=== PATIENT | male | born 1955 | race Caucasian/White ===

== ENCOUNTER 2023-05-04 22:05 | Inpatient (IN) | payer MEDICARE, SELFPAY ==
--- NOTE | ~2023-05-04 | CT_ITS ---
EXAMINATION: CT ABDOMEN AND PELVIS WITH CONTRAST GI BLEED CLINICAL INFORMATION: Rectal bleeding COMPARISON: None TECHNIQUE: Initial noncontrast imaging of the abdomen/pelvis. Multidetector volumetric images were obtained from the superior aspect of the liver through the pubic symphysis following administration 85 mL of Omnipaque 350 intravenous contrast in arterial and delayed phases. Sagittal and coronal reformatted images were obtained on the technologist's workstation. This CT examination was performed using dose optimization techniques as appropriate, variously including the following: *Automated exposure control *Adjustment of mA and/or kV according to patient size (this includes techniques or standardized protocols for targeted exams where dose is matched to indication/reason for exam; i.e. extremities or head) *Use of iterative reconstruction technique DLP: 1274 mGy-cm FINDINGS: LUNG BASES: Mild bibasilar atelectasis. LIVER, GALLBLADDER, AND BILIARY TREE: The liver is normal in size, shape, and attenuation. Small hypodensity in the left hepatic lobe is suggestive of a cyst. No biliary ductal dilatation is present. The gallbladder is unremarkable with no evidence of radiopaque gallstones, gallbladder wall thickening, or obvious pericholecystic inflammatory changes. PANCREAS: Unremarkable. SPLEEN: Unremarkable. ADRENAL GLANDS: Unremarkable. KIDNEYS AND URETERS: No hydronephrosis or obstructing calculus bilaterally. Postcontrast nephrograms are symmetric. BLADDER: Collapsed with Kumari catheter in place. GASTROINTESTINAL TRACT: On arterial phase imaging there is subtle focal hyperattenuation along the posterior aspect of the collapsed rectum, such as on series 9 image 214/250, suggesting a small amount of active hemorrhage. No significant bowel wall thickening is seen, though evaluation some regions is limited due to luminal collapse. Colonic diverticulosis is noted without definite diverticulitis. No evidence of bowel obstruction. The appendix is unremarkable. No free fluid or free air is seen. ABDOMINAL WALL: Fat-containing right inguinal hernia. LYMPH NODES: Normal. VASCULAR: Mild scattered atherosclerotic calcifications. PELVIC VISCERA: The prostate gland is enlarged, measuring approximately 6 cm in transverse dimension. OSSEOUS STRUCTURES: Scattered mild degenerative changes in the spine. CT/CT gi bleed abd pel wo/w IVcon IMPRESSION: 1. Subtle focal hyperdensity along the posterior aspect of the collapsed rectum, suggesting a small amount of active hemorrhage. If not recently performed, correlation with follow-up colonoscopy is recommended as underlying mass cannot be excluded. 2. Colonic diverticulosis without definite diverticulitis. 3. Enlarged prostate gland. This critical result was discussed with Dr. Conroy on 05/05/2023 2:29 AM, and it was ascertained that the content and urgency of the report was understood at the time of direct communication.
[2023-05-04 22:16] VITALS: BP 184/106; BP 198/114; PULSE 103; PULSE 108; RESP 19; TEMP 36.7; O2SAT 95; O2SAT 96; BMI 25.7
[2023-05-04 22:58] LABS: Basophils Absolute Auto 0.1 X10*3/uL (0.0-0.2); Basophils Percent Auto 0.7 % (0-2); Eosinophils Absolute Auto 0.3 X10*3/uL (0.0-0.4); Eosinophils Percent Auto 2.4 % (0-4); Hematocrit 46.6 % (42.0-52.0); Hemoglobin 15.8 g/dl (14.0-18.0); Imm Gran Abs Auto 0.05 X10*3/uL (0.00-0.03); Imm Gran Pct Auto 0.4 % (0.0-0.4); Lymphocytes Absolute Auto 1.8 X10*3/uL (1.2-4.9); Lymphocytes Percent Auto 13.1 % (20-40); MANUAL DIFF FLAG NO; Mean Corpuscular HGB Conc 33.9 g/dl (31.0-36.0); Mean Corpuscular Hemoglobin 28.6 pg (27.0-33.0); Mean Corpuscular Volume 84.3 fL (80.0-98.0); Mean Platelet Volume 9.3 fL (9.4-12.4); Monocytes Absolute Auto 0.8 X10*3/uL (0.1-1.2); Monocytes Percent Auto 5.5 % (2-11); Neutrophils Absolute Auto 10.8 x10*3/uL (2.0-8.3); Neutrophils Percent Auto 77.9 % (45-73); Platelet Count 261 X10*3/uL (160-400); Red Blood Count 5.53 X10*6/uL (4.60-5.80); Red Cell Distribution Width 13.3 % (11.0-16.0); White Blood Count 13.8 X10*3/uL (4.8-10.8)
[2023-05-04 23:08] LABS: Appearance Urine Clear; Color Urine Yellow; Glucose Urine UA 100 mg/dL (Negative); Leukocyte Esterase Urine Negative (Negative); Nitrite Urine Negative (Negative); PH 5.5 (5.0-9.0); UMIC TRIGGER UACC YES; Urine Blood Trace (Negative); Urine Ketones Negative (Negative); Urine Protein Negative (Neg-Trace)
[2023-05-04 23:12] LABS: Alanine Aminotransferase 31 U/L (0-40); Albumin Level 4.6 g/dL (3.5-5.0); Alkaline Phosphatase 56 U/L (39-117); Anion Gap 16 (12-20); Aspartate Amino Transferase 20 U/L (5-37); Bilirubin Total 0.4 mg/dL (0.0-1.0); Blood Urea Nitrogen 12 mg/dL (9-16); Calcium 9.9 mg/dL (8.4-10.2); Carbon Dioxide 26 mmol/L (22-29); Chloride 105 mmol/L (96-108); Creatinine Clr Calc Pharmacy 53.1; Estimated Glomerular Filt Rate 56; Glucose Random 164 mg/dL (60-115); Potassium 4.6 mmol/L (3.3-5.1); Sodium 142 mmol/L (135-145); Total Protein 8.1 g/dL (6.5-8.0)
[2023-05-04 23:17] LABS: Bacteria Urine None Seen (None Seen); Hyaline Casts Urine 0-2 /LPF (0-2); Squamous Epithelial Cell Urine 0-2 /HPF (0-2); WBC Urine 0-5 /HPF (0-5)
--- NOTE | 2023-05-04 23:26 | ED.GENADULT ---
HPI - General Adult General Chief complaint: General Medical Stated complaint: BLOOD IN STOOL, DIFF URINATING,BURNING SENSATION Time Seen by Provider: 05/04/23 22:37 Source: patient Mode of arrival: EMS History of Present Illness HPI narrative: 68M arrives via EMS with inability to urinate since this afternoon and also reporting painless bleeding on defecation that soiled his underwear/toilet bowl and toilet paper. Patient denies the use of chronic anticoagulation or experiencing any abdominal pain with his symptoms. Related Data Allergies Allergy/AdvReac Type Severity Reaction Status Date / Time Sulfa (Sulfonamide Allergy Intermediate HIVES Unverified 11/21/19 16:17 Antibiotics) [SULFA (SULFONAMIDE ANTIBIOTICS)] lisinopril [LISINOPRIL] AdvReac Unknown COUGH Unverified 11/21/19 16:17 ENVIROMENTAL Allergy Unknown UNKNOWN Uncoded 11/21/19 16:17 Review of Systems Review of Systems: Pertinent positives and negatives as stated in HPI [facility] Past Medical History Source: nursing notes reviewed Medical History Gastroesophageal reflux disease Essential hypertension Non-insulin dependent type 2 diabetes mellitus Mixed hyperlipidemia Peripheral neuropathy Social History Social History Alcohol intake: current Alcohol intake frequency: holidays/special occasions only Smoked in Last 30 Days: No Use of substances other than those prescribed or required for medical reasons: No Advance Directives: No Advance Directives Information Provided: No Physical Exam ED Vital Signs: Vital Signs - 24 hr 05/04/23 22:16 05/04/23 23:32 Temperature 98.0 F Pulse Rate 103 H 100 Respiratory Rate 19 16 Blood Pressure 184/106 H 118/76 Pulse Oximetry 95 98 Oxygen Delivery Method Room Air Room Air BMI result Body Mass Index 25.7 VITAL SIGNS: Reviewed. GENERAL: Well developed, well nourished, in no acute distress. HEAD: Normocephalic/atraumatic EYES: PERRLA, EOMI EARS: Ext canals without abnormality NOSE: Nares patent bilateral OROPHARYNX: no oral lesions noted, posterior pharynx clear NECK: Supple, no adenopathy LUNGS: Normal breath sounds. No adventitious sounds or accessory muscle use. SpO2<98> CARDIOVASCULAR: Regular rate and rhythm without noted murmurs ABDOMEN: Soft, non-tender, non-distended with bowel sounds. LELE: There are inflamed external hemorrhoids noted at the 3 o'clock position, there is no noted friability or active bleeding noted, good rectal tone, mucous stool noted within the rectal vault that appears to be mixed with pink tinged stool MUSCULOSKELETAL: No tenderness, deformities, or effusions noted on gross inspection. EXTREMITIES: No cyanosis, clubbing or edema. SKIN: Inspection of the skin reveals no rashes NEUROLOGIC: Alert and oriented x 4. Strength and sensation to light touch were grossly intact x 4. Medications Administered Discontinued Medications Generic Name Dose Route Start Last Admin Trade Name Freq PRN Reason Stop Dose Admin Iohexol 100 ml 05/05/23 00:51 05/05/23 00:51 Iohexol 350 Mg/Ml 100 Ml Infus..Btl IV 05/05/23 00:52 85 ml ONCE ONE Administration Medical Decision Making Medical Decision Making [facility] Narrative: 68-year-old male with history and clinical presentation, DDX: Urinary retention secondary to either BPH or possible constipation and Kumari catheter was placed for bladder scan demonstrating more than 700 cc retained, possibility of a UTI, patient clearly has external inflamed hemorrhoids, stool guaiac is positive and there is the possibility internal hemorrhoid contribution likely secondary to constipation. Reviewed all investigations and hematologic indices demonstrates a noninfectious leukocytosis that appears to be reactive in nature and no anemia or thrombocytopenia. Chemistry indices do not demonstrate BONILLA/electrolyte or liver enzyme derangements. Urinalysis is not significant for urinary tract infection. As mentioned above patient is noted to be stool guaiac positive, and just received a call at : for CT scan for GI bleed that shows a bright focus at the right rectum, patient is not had any further BRBPR but will be typed and screened, I will discuss the case with Gastroenterology and I have contacted the inpatient hospitalist for admission. 0232: I discussed case with inpatient hospitalist who accepts admission. Differential Diagnosis Differential Diagnoses: The differential diagnosis associated with the presentation includes Please see the discussion above Admission/Observation Consideration of admission/observation: Escalation of care including admission/observation considered Please see the discussion above Consult Healthcare Provider Management of the patient was discussed with: Hospitalist and Production Clerk Please see the discussion above Lab Data [facility] Lab Attestation statement: I reviewed the patient's lab results. Please see the discussion above 05/04/23 22:47 05/04/23 22:47 Labs: Lab Results 05/04/23 05/04/23 05/04/23 Range/Units 22:47 23:00 23:21 WBC 13.8 H (4.8-10.8) X10*3/uL RBC 5.53 (4.60-5.80) X10*6/uL Hgb 15.8 (14.0-18.0) g/dl Hct 46.6 (42.0-52.0) % MCV 84.3 (80.0-98.0) fL MCH 28.6 (27.0-33.0) pg MCHC 33.9 (31.0-36.0) g/dl RDW 13.3 (11.0-16.0) % Plt Count 261 (160-400) X10*3/uL MPV 9.3 L (9.4-12.4) fL Immature Gran % (Auto) 0.4 (0.0-0.4) % Neut % (Auto) 77.9 H (45-73) % Lymph % (Auto) 13.1 L (20-40) % [place] % (Auto) 5.5 (2-11) % Eos % (Auto) 2.4 (0-4) % Baso % (Auto) 0.7 (0-2) % Lymph # (Auto) 1.8 (1.2-4.9) X10*3/uL [place] # (Auto) 0.8 (0.1-1.2) X10*3/uL Eos # (Auto) 0.3 (0.0-0.4) X10*3/uL Baso # (Auto) 0.1 (0.0-0.2) X10*3/uL Abs Immat Gran (auto) 0.05 H (0.00-0.03) X10*3/uL Absolute Neuts (auto) 10.8 H (2.0-8.3) x10*3/uL Absolute Nucleated RBC 0.000 (0.0-0.012) X10*3/uL Nucleated RBC % (auto) 0.0 (0.0-0.2) /100WBC Sodium 142 (135-145) mmol/L Potassium 4.6 (3.3-5.1) mmol/L Chloride 105 (96-108) mmol/L Carbon Dioxide 26 (22-29) mmol/L Anion Gap 16 (12-20) BUN 12 (9-16) mg/dL Creatinine 1.27 (0.5-1.4) mg/dL Estim Creat Clear Calc 53.1 Estimated GFR 56 Random Glucose 164 H (60-115) mg/dL Calcium 9.9 (8.4-10.2) mg/dL Total Bilirubin 0.4 (0.0-1.0) mg/dL AST 20 (5-37) U/L ALT 31 (0-40) U/L Alkaline Phosphatase 56 (39-117) U/L Total Protein 8.1 H (6.5-8.0) g/dL Albumin 4.6 (3.5-5.0) g/dL Urine Color Yellow Urine Appearance Clear Urine pH 5.5 (5.0-9.0) Ur Specific [place] 1.010 (1.005-1.025) Urine Protein Negative (Neg-Trace) mg/dL Urine Glucose (UA) 100 H (Negative) mg/dL Urine Ketones Negative (Negative) mg/dL Urine Blood Trace H (Negative) Urine Nitrite Negative (Negative) Ur Leukocyte Esterase Negative (Negative) Urine RBC 6-10 H (0-2) /HPF Urine WBC 0-5 (0-5) /HPF Ur Squamous Epith Cells 0-2 (0-2) /HPF Urine Bacteria None Seen (None Seen) Hyaline Casts 0-2 (0-2) /LPF Stool Occult Blood POSITIVE (NEGATIVE) Radiology Impression Discussion of test interpretation with radiology: I have reviewed the radiologist's reading. Radiologist Impression: Please see the discussion above Chronic Conditions Patient?s care impacted by: Diabetes and Hypertension Critical Care Time Critical Care Time Critical Care Time: Yes Total Critical Care Time: 60 Attestation: I personally attest to this time spent taking care of the patient. Discharge Plan Discharge Clinical Impression: Urinary retention, GI bleed Patient Disposition: Admitted As Inpatient
[2023-05-04 23:31] LABS: OBS Int Ctl Valid YES; OBS1 POSITIVE (NEGATIVE)
[2023-05-04 23:32] VITALS: BP 118/76; PULSE 100; RESP 16; O2SAT 98
[2023-05-05] VITALS (9 sets, daily range): BP systolic 102–166; BP diastolic 53–94; PULSE 73–96; RESP 14–20; TEMP 36.1–36.9; O2SAT 94–98; BMI 26.6
[2023-05-05] MEDS: iohexoL 350 MG/ML 100 ML INFUS..BTL IV (00:51)
--- NOTE | 2023-05-05 02:53 | P.HPHOSP_ITS ---
History of Present Illness Date of Service: 05/05/23 Chief Complaint: Bright red blood per rectum This is a 68-year-old male with pertinent history of mur-bkydwna-[id number] diabetes mellitus, essential hypertension, gastroesophageal reflux disease, peripheral neuropathy, mixed hyperlipidemia who presents to the emergency department for evaluation of urinary retention and bright red blood per rectum. Patient states that he had 3 episodes of painless bright red blood per rectum on the day of presentation. This was without fever, chills, nausea, vomiting or abdominal discomfort. Patient states the last time this happened was around 4 years ago when he was diagnosed with diverticulitis. Unknown last colonoscopy. Patient states that on the day of presentation he also could not pass urine. This has never happened before. No history of BPH that he knows of. No chest discomfort, palpitations, shortness of breath. In the emergency department, Kumari catheter was placed for urinary retention. Stool occult blood positive and imaging with focal hyper density along rectum concerning for active hemorrhage. Review of Systems 2 Constitutional: Constitutional: Reports no additional constitutional complaints Cardiovascular: Cardiovascular: Reports no additional cardiovascular complaints Respiratory: Respiratory: Reports no additional respiratory complaints Gastrointestinal: Gastrointestinal: Reports hematochezia Genitourinary: Genitourinary: Reports difficulty urinating Neurologic: Reports system reviewed and no additional complaints, except as documented Psychiatric: Psychiatric: Reports no additional psychiatric complaints [facility] Medical History Gastroesophageal reflux disease Essential hypertension Non-insulin dependent type 2 diabetes mellitus Mixed hyperlipidemia Peripheral neuropathy Pertinent family history: No family history of early CAD Social History Alcohol intake: current Alcohol intake frequency: holidays/special occasions only Smoked in Last 30 Days: No Use of substances other than those prescribed or required for medical reasons: No Advance Directives: No Advance Directives Information Provided: No Meds Allergies Allergy/AdvReac Type Severity Reaction Status Date / Time Sulfa (Sulfonamide Allergy Intermediate HIVES Unverified 11/21/19 16:17 Antibiotics) [SULFA (SULFONAMIDE ANTIBIOTICS)] lisinopril [LISINOPRIL] AdvReac Unknown COUGH Unverified 11/21/19 16:17 ENVIROMENTAL Allergy Unknown UNKNOWN Uncoded 11/21/19 16:17 Active Medications: Current Medications Acetaminophen (Acetaminophen 325 Mg Tablet) 650 mg PO Q6H PRN PRN Reason: Pain, Mild (Pain Scale 1-3) Lactated Ringer's (Lr) 1,000 mls @ 999 mls/hr IV .Q1H1M ONE Stop: 05/05/23 03:52 Melatonin (Melatonin 3 Mg Tablet) 6 mg PO BEDTIME PRN PRN Reason: Insomnia Ondansetron HCl (Ondansetron Hcl 4 Mg/2 Ml Vial) 4 mg IVPUSH Q8H PRN PRN Reason: Nausea and Vomiting Sodium Chloride (0.9 % Sodium Chloride Flush 3 Ml Syringe) 3 ml IVFLUSH QSHIFT [facility] Physical Exam 2 Vital Signs and Narrative: Vital Signs: Last Vital Signs Temp 98.0 F 05/04/23 22:16 Pulse 100 05/04/23 23:32 Resp 16 05/04/23 23:32 BP 118/76 05/04/23 23:32 Pulse Ox 98 05/04/23 23:32 O2 Del Method Room Air 05/04/23 23:32 BMI result Body Mass Index 25.7 Middle-aged male lying in bed in no distress Neck supple, no JVD Regular rate and rhythm, S1-S2 heard Regular breath sounds bilaterally, no wheezing or crackles appreciated Abdomen soft nontender, no guarding, no rigidity Patient is awake, alert and oriented to self, place, time and person ; no focal motor deficit Psych: Normal mood No pedal edema Results Labs 05/04/23 22:47 05/04/23 22:47 Labs: Laboratory Results - last 24 hr 05/04/23 05/04/23 05/04/23 22:47 23:00 23:21 MCV 84.3 MCH 28.6 MCHC 33.9 RDW 13.3 Plt Count 261 MPV 9.3 L Immature Gran % (Auto) 0.4 Neut % (Auto) 77.9 H Lymph % (Auto) 13.1 L [place] % (Auto) 5.5 Eos % (Auto) 2.4 Baso % (Auto) 0.7 Lymph # (Auto) 1.8 [place] # (Auto) 0.8 Eos # (Auto) 0.3 Baso # (Auto) 0.1 Abs Immat Gran (auto) 0.05 H Absolute Neuts (auto) 10.8 H Absolute Nucleated RBC 0.000 Nucleated RBC % (auto) 0.0 Anion Gap 16 Estim Creat Clear Calc 53.1 Estimated GFR 56 Random Glucose 164 H Calcium 9.9 Total Bilirubin 0.4 AST 20 ALT 31 Alkaline Phosphatase 56 Total Protein 8.1 H Albumin 4.6 Urine Color Yellow Urine Appearance Clear Urine pH 5.5 Ur Specific [place] 1.010 Urine Protein Negative Urine Glucose (UA) 100 H Urine Ketones Negative Urine Blood Trace H Urine Nitrite Negative Ur Leukocyte Esterase Negative Urine RBC 6-10 H Urine WBC 0-5 Ur Squamous Epith Cells 0-2 Urine Bacteria None Seen Hyaline Casts 0-2 Stool Occult Blood POSITIVE Imaging Radiologist's Impressions: Impressions Abdomen/Pelvis CT 05/05/23 00:52 IMPRESSION: 1. Subtle focal hyperdensity along the posterior aspect of the collapsed rectum, suggesting a small amount of active hemorrhage. If not recently performed, correlation with follow-up colonoscopy is recommended as underlying mass cannot be excluded. 2. Colonic diverticulosis without definite diverticulitis. 3. Enlarged prostate gland. This critical result was discussed with Dr. Conroy on 05/05/2023 2:29 AM, and it was ascertained that the content and urgency of the report was understood at the time of direct communication. Assessment and Plan (1) GI bleed: Status: Acute (2) Urinary retention: Status: Acute Plan This is a 68-year-old male with pertinent history of dvx-evqsbfy-neyehazfq diabetes mellitus, essential hypertension, gastroesophageal reflux disease, peripheral neuropathy, mixed hyperlipidemia who presents to the emergency department for evaluation of urinary retention and bright red blood per rectum. #. Acute GI bleed: Will admit patient with cardiac monitoring. Stool occult blood positive in the ER and imaging with focal hyperdensity along rectum concerning for active hemorrhage. Will keep patient NPO and consulted Gastroenterology, appreciate assistance. Resuscitating with IV crystalloids. Closely monitor H&H #. Urinary retention: Kumari catheter placed in the ER. Consulting Urology, appreciate assistance #. Essential hypertension: Hold antihypertensives in the setting of GI bleed #. Dpr-tqljuyd-tythetpgh diabetes mellitus: Initiating Accu-Cheks with sliding scale insulin every 6 hours #. Peripheral neuropathy: On gabapentin and amitriptyline #. Mixed hyperlipidemia: On statin #. Gastroesophageal reflux disease: On PPI #. Reactive leukocytosis Med rec pending DVT prophylaxis: Mechanical Full code Admit as inpatient and will require two night minimum hospital stay for evaluation of acute GI bleed and close hemodynamic monitoring (as above), which is not possible in a lesser acute setting. Specialist consult pending Quality Stroke Does the patient have a stroke diagnosis?: No VTE Prior VTE?: No VTE Risk Level:: Medical - moderate - high VTE Device Contraindication: N/A - Device Ordered VTE Drug Contraindication: Treatment Not Indicated
[2023-05-05] MEDS: Lactated Ringers 1,000 ML 999 ML IV (04:06)
[2023-05-05 04:09] LABS: Glucose, Whole Blood 124 mg/dL (60-115)
[2023-05-05 05:19] LABS: Basophils Absolute Auto 0.1 X10*3/uL (0.0-0.2); Basophils Percent Auto 0.7 % (0-2); Eosinophils Absolute Auto 0.3 X10*3/uL (0.0-0.4); Eosinophils Percent Auto 2.8 % (0-4); Hemoglobin 13.8 g/dl (14.0-18.0); Imm Gran Abs Auto 0.04 X10*3/uL (0.00-0.03); Imm Gran Pct Auto 0.4 % (0.0-0.4); Lymphocytes Absolute Auto 2.6 X10*3/uL (1.2-4.9); Lymphocytes Percent Auto 24.8 % (20-40); MANUAL DIFF FLAG SCAN; Mean Corpuscular HGB Conc 34.5 g/dl (31.0-36.0); Mean Corpuscular Hemoglobin 28.8 pg (27.0-33.0); Mean Corpuscular Volume 83.3 fL (80.0-98.0); Monocytes Absolute Auto 0.8 X10*3/uL (0.1-1.2); Monocytes Percent Auto 7.3 % (2-11); Neutrophils Absolute Auto 6.7 x10*3/uL (2.0-8.3); PLT CLUMP 1; Platelet Count 183 X10*3/uL (160-400); Red Cell Distribution Width 13.3 % (11.0-16.0); SCAN SMEAR FLAG 1; White Blood Count 10.4 X10*3/uL (4.8-10.8)
[2023-05-05 05:30] LABS: SLIDE REVIEW VERIFIED
[2023-05-05 05:31] LABS: Anion Gap 14 (12-20); Blood Urea Nitrogen 11 mg/dL (9-16); Calcium 8.8 mg/dL (8.4-10.2); Carbon Dioxide 22 mmol/L (22-29); Chloride 108 mmol/L (96-108); Creatinine Clr Calc Pharmacy 64.2; Estimated Glomerular Filt Rate > 60; Glucose Random 130 mg/dL (60-115); Potassium 4.5 mmol/L (3.3-5.1); Sodium 139 mmol/L (135-145)
--- NOTE | 2023-05-05 05:52 | PC.NURSE ---
Patient is alert and oriented x4, VSS. Patient denies any pain at present. Patient ambulates with a steady gait and independent with ADL's. 16 FR F/C inserted d/t inability to void and presence of 717 mL urine in pt's bladder when bladder scanned, patient tolerated procedure well with 700 mL of clear, yellow urine drained to F/C bag. ED provider obtained occult blood sample, + of occult blood. 20 G IV line placed in L forearm. Patient's spouse at bedside, call doran within patient's reach.
[2023-05-05] MEDS: 0.9 % Sodium Chloride Flush 3 ML SYRINGE IVFLUSH ×2 (07:37→23:08)
--- NOTE | 2023-05-05 07:40 | PHA.MEDREC ---
Pharmacy Consult ? Medication Reconciliation Pharmacy has completed the medication reconciliation. Med rec complete, spoke with patient and compared with pharmacy claim history. 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
[2023-05-05] MEDS: ondansetron HCL 4 MG/2 ML VIAL IVPUSH ×2 (07:42→23:08)
--- NOTE | 2023-05-05 07:44 | PC.NURSE ---
patient a&ox3, vss, site monitor intact-nsr, at bedside, pt c/o nausea- medicated with zofran per order, pt being held NPO per orders pt c/o being thirsty- will speak with provider to see if they wish to have fluids running. call doran within reach, will continue to monitor.
--- NOTE | 2023-05-05 08:51 | MHC.CM.PN ---
CM met with Patient and his /HCP/Carlyn @ bedside, in the ED and addressed IMM with him, providing Patient with the original and a copy will be placed on the chart. Patient completed a HCP today, naming his as his Agent. 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 Home/self care is the goal and CM has initiated and will follow for dc planning. PCP is Dr. Aiden Angulo.
[2023-05-05 09:39] LABS: Glucose, Whole Blood 128 mg/dL (60-115)
--- NOTE | 2023-05-05 11:56 | PM.GICN ---
History of Present Illness Data of Consult Service Date: 05/05/23 <Latonia Vale MD - Last Filed: 05/05/23 16:02> Requesting physician: Schuyler Chacko <Latonia Vale MD - Last Filed: 05/05/23 16:02> Primary Care Provider: Aiden Angulo III, MD <Latonia Vale MD - Last Filed: 05/05/23 16:02> HPI Reason for consult: GI bleeding <Latonia Vale MD - Last Filed: 05/05/23 16:02> This is a 68-year-old gentleman with past medical history of hypertension, diabetes (on trulicity, last dose on ) peripheral neuropathy, diverticulosis, with reported history of previous diverticular bleed, who presented to the hospital for painless rectal bleeding for 1 day duration. Gastroenterology has been consulted for further evaluation and management. History obtained from the patient, who states that around 2pm on the day of admission he started developing difficulty urination despite bearing down. Around the same time he noticed painless rectal bleeding. Continued to have few more episodes through the afternoon which prompted EMS call as he has had diverticular bleeding in the past. He did not have any BMs with this so unclear if stool color changed with this but has not had any further bleeding since 4am. On arrival to the emergency room, he was noted to be slightly tachycardic which improved with fluid resuscitation. Labs were significant for hemoglobin of 15.8 on arrival, which decreased to 13.8 in 12 hours. Normal BUN to creatinine ratio. Blood sugars in control. Patient also underwent a CT abdomen pelvis with GI bleed protocol that showed hyperdense material in the rectum question for active hemorrhage. Pt reports having a colo just in Feb at [facility] that showed benign polyps and was given a 5 year recall. <Latonia Vale MD - Last Filed: 05/05/23 16:02> Review of Systems Review of Systems: Yes all other systems are reviewed and are negative <Latonia Vale MD - Last Filed: 05/05/23 16:02> FORMERLY [facility] Past Medical History Medical History: Medical History Gastroesophageal reflux disease Essential hypertension Non-insulin dependent type 2 diabetes mellitus Mixed hyperlipidemia Peripheral neuropathy <Latonia Vale MD - Last Filed: 05/05/23 16:02> Social History Social History: Social History Alcohol intake: current Alcohol intake frequency: holidays/special occasions only Patient Tobacco Use Status: Never used Tobacco Smoked in Last 30 Days: No Use of substances other than those prescribed or required for medical reasons: No Are you DNR?: No Advance Directives: No Advance Directives Information Provided: No Nutrition Risks: No Nutritional Risk service: No <Latonia Vale MD - Last Filed: 05/05/23 16:02> Meds Allergies/Adverse reactions: Allergies Allergy/AdvReac Type Severity Reaction Status Date / Time Sulfa (Sulfonamide Allergy Intermediate HIVES Verified 05/05/23 04:04 Antibiotics) [SULFA (SULFONAMIDE ANTIBIOTICS)] lisinopril [LISINOPRIL] AdvReac Unknown COUGH Verified 05/05/23 04:04 ENVIROMENTAL Allergy Unknown UNKNOWN Uncoded 11/21/19 16:17 <Latonia Vale MD - Last Filed: 05/05/23 16:02> Active Medications: Current Medications Acetaminophen (Acetaminophen 325 Mg Tablet) 650 mg PO Q6H PRN PRN Reason: Pain, Mild (Pain Scale 1-3) Albuterol Sulfate (Albuterol Sulfate 90 Mcg 8 Gm Inhaler) 2 puff INHALE Q4H PRN PRN Reason: wheezing Amitriptyline HCl (Amitriptyline Hcl 50 Mg Tablet) 100 mg PO BEDTIME LEO Atenolol (Atenolol 50 Mg Tablet) 50 mg PO BEDTIME LEO; Protocol Atorvastatin Calcium (Atorvastatin Calcium 20 Mg Tablet) 20 mg PO BEDTIME LEO Dextrose (Dextrose 50 % 25 Gm/50 Ml Syringe) 25 gm IVPUSH Q15M PRN; Protocol PRN Reason: per Hypoglycemia Standing Ord. Fluticasone Propionate (Fluticasone Propionate Nasal 16 Gm [place]) 2 spray NOSTRIL-B DAILY PRN PRN Reason: SEASONAL ALLERGIES Glucose (Glucose Gel 15 Gm Gel..Gram.) 15 gm PO Q15M PRN; Protocol PRN Reason: per Hypoglycemia Standing Ord. Insulin Human Lispro (Insulin Lispro 100 Unit/Ml 3 Ml Vial) 0 unit SUBCUT Q6H LEO; Protocol Last Admin: 05/05/23 10:20 Dose: Not Given Melatonin (Melatonin 3 Mg Tablet) 6 mg PO BEDTIME PRN PRN Reason: Insomnia Omeprazole (Omeprazole 40 Mg Capsule.) 40 mg PO DAILY@1630 [facility] Ondansetron HCl (Ondansetron Hcl 4 Mg/2 Ml Vial) 4 mg IVPUSH Q8H PRN PRN Reason: Nausea and Vomiting Last Admin: 05/05/23 07:42 Dose: 4 mg Sodium Chloride (0.9 % Sodium Chloride Flush 3 Ml Syringe) 3 ml IVFLUSH QSHIFT [facility] Last Admin: 05/05/23 07:37 Dose: 3 ml <Latonia Vale MD - Last Filed: 05/05/23 16:02> Home medications: Home Medications Medication Instructions Recorded Confirmed Last Taken Type albuterol sulfate 90 mcg/actuation 2 puff inhalation Q4H PRN wheezing 05/05/23 05/05/23 Unknown History aerosol inhaler amitriptyline 50 mg tablet 100 mg PO BEDTIME 05/05/23 05/05/23 05/04/23 History atenolol 50 mg tablet 50 mg PO BEDTIME 05/05/23 05/05/23 05/04/23 History dulaglutide 1.5 mg/0.5 mL 1.5 mg subcut TU@1000 05/05/23 05/05/23 05/02/23 History subcutaneous pen injector (Trulicity) fluticasone propionate 50 2 spray intranasal DAILY PRN 05/05/23 05/05/23 Unknown History mcg/actuation nasal SEASONAL ALLERGIES spray,suspension metformin 500 mg tablet,extended 500 mg PO BEDTIME 05/05/23 05/05/23 05/04/23 History release 24 hr omeprazole 40 mg capsule,delayed 40 mg PO DAILY@1630 05/05/23 05/05/23 05/04/23 History release simvastatin 40 mg tablet 40 mg PO BEDTIME 05/05/23 05/05/23 05/04/23 History <Latonia Vale MD - Last Filed: 05/05/23 16:02> Physical Exam Vital Signs: Vital Signs: Last Vital Signs Temp 98.3 F 05/05/23 06:59 Pulse 90 05/05/23 06:59 Resp 15 05/05/23 06:59 BP 147/94 H 05/05/23 06:59 Pulse Ox 95 05/05/23 06:59 O2 Del Method Room Air 05/05/23 06:59 BMI result Body Mass Index 25.7 <Latonia Vale MD - Last Filed: 05/05/23 16:02> Elderly gent, NAD Nonicteric Abd soft, nontender, nondistended No overt resp distress No peripheral edema <Latonia Vale MD - Last Filed: 05/05/23 16:02> Results Labs CBC & Chem 7: 05/05/23 12:30 05/05/23 05:05 <Latonia Vale MD - Last Filed: 05/05/23 16:02> Labs: Short CBC 05/04/23 05/05/23 Range/Units 22:47 05:05 WBC 13.8 H 10.4 (4.8-10.8) X10*3/uL Hgb 15.8 13.8 L (14.0-18.0) g/dl Hct 46.6 40.0 L (42.0-52.0) % Plt Count 261 183 D (160-400) X10*3/uL BMP 05/04/23 05/05/23 22:47 05:05 Sodium 142 139 Potassium 4.6 4.5 Chloride 105 108 Carbon Dioxide 26 22 BUN 12 11 Creatinine 1.27 1.05 Calcium 9.9 8.8 D Liver Function 05/04/23 Range/Units 22:47 Total Bilirubin 0.4 (0.0-1.0) mg/dL AST 20 (5-37) U/L ALT 31 (0-40) U/L Alkaline Phosphatase 56 (39-117) U/L Albumin 4.6 (3.5-5.0) g/dL Urine 05/04/23 Range/Units 23:00 Urine Color Yellow Urine Appearance Clear Urine pH 5.5 (5.0-9.0) Ur Specific [place] 1.010 (1.005-1.025) Urine Protein Negative (Neg-Trace) mg/dL Urine Glucose (UA) 100 H (Negative) mg/dL <Latonia Vale MD - Last Filed: 05/05/23 16:02> Assessment and Plan (1) GI bleed: Status: Acute <Latonia Vale MD - Last Filed: 05/05/23 16:02> (2) Diverticula of colon: Status: Acute <Latonia Vale MD - Last Filed: 05/05/23 16:02> Ddx for painless rectal bleeding include hemorrhoidal bleeding veronica as started after bearing down to urinate, diverticular bleeding. Unlikely to be malignancy given normal colo just 2 months ago. Plan: - Flex sig today for evaluation. - Pls keep NPO - Fleets enema this afternoon at least 1-2 hours before flex sig. Thank you for allowing me to participate in his care. Pls do not hesitate to reach out for questions or concerns. <Latonia Vale MD - Last Filed: 05/05/23 16:02> Procedures Date of Service Date of Service: 05/05/23 <Latonia Vale MD - Last Filed: 05/05/23 16:02> 05/05/23 <Suly Etsrada MD - Last Filed: 05/05/23 12:22>
[2023-05-05 12:38] LABS: Hematocrit 40.9 % (42.0-52.0)
[2023-05-05] MEDS: Sodium Phosphate,Mono-Dibasic 133 ML ENEMA PR (13:05)
--- NOTE | 2023-05-05 14:09 | PM.EVENT ---
Event Note Date of Service: 05/05/23 Event Note: Pt admitted this morning. He presented because of urinary retention and while he was straning to void he said he had blood in the stool. He had colonocopy in Feb and was told he had a bening polyp and should have colonocopy in 5 years. His H/H has been stable. A humphrey is inseted for urnary retention and urology will see him. Gi is evaluating him as well and have Flex sig. He likely has hemorrhoid Time Spent With Patient Time: Total time managing care of this patient today ____ minutes.
[2023-05-05 14:49] LABS: Glucose, Whole Blood 121 mg/dL (60-115)
--- NOTE | 2023-05-05 15:36 | HO.ANESPROP2 ---
[facility] Active Problems Active Problems: All Active Problems (Updated 05/05/23 @ 02:57 by Suly Conroy MD) GI bleed (Acute) Urinary retention (Acute) Peripheral neuropathy (Acute) Mixed hyperlipidemia (Acute) Non-insulin dependent type 2 diabetes mellitus (Acute) Essential hypertension (Acute) Gastroesophageal reflux disease (Acute) Past Medical History Medical History Gastroesophageal reflux disease Essential hypertension Non-insulin dependent type 2 diabetes mellitus Mixed hyperlipidemia Peripheral neuropathy Family History Family history of problems with anesthesia: No Surgical History History of Problems with Anesthesia: No Social History Social History Alcohol intake: current Alcohol intake frequency: holidays/special occasions only Patient Tobacco Use Status: Never used Tobacco Smoked in Last 30 Days: No Use of substances other than those prescribed or required for medical reasons: No Are you DNR?: No Advance Directives: No Advance Directives Information Provided: No Nutrition Risks: No Nutritional Risk service: No Meds Allergies Allergy/AdvReac Type Severity Reaction Status Date / Time Sulfa (Sulfonamide Allergy Intermediate HIVES Verified 05/05/23 04:04 Antibiotics) [SULFA (SULFONAMIDE ANTIBIOTICS)] lisinopril [LISINOPRIL] AdvReac Unknown COUGH Verified 05/05/23 04:04 ENVIROMENTAL Allergy Unknown UNKNOWN Uncoded 11/21/19 16:17 Active Medications: Current Medications Acetaminophen (Acetaminophen 325 Mg Tablet) 650 mg PO Q6H PRN PRN Reason: Pain, Mild (Pain Scale 1-3) Albuterol Sulfate (Albuterol Sulfate 90 Mcg 8 Gm Inhaler) 2 puff INHALE Q4H PRN PRN Reason: wheezing Amitriptyline HCl (Amitriptyline Hcl 50 Mg Tablet) 100 mg PO BEDTIME LEO Atenolol (Atenolol 50 Mg Tablet) 50 mg PO BEDTIME LEO; Protocol Atorvastatin Calcium (Atorvastatin Calcium 20 Mg Tablet) 20 mg PO BEDTIME LEO Dextrose (Dextrose 50 % 25 Gm/50 Ml Syringe) 25 gm IVPUSH Q15M PRN; Protocol PRN Reason: per Hypoglycemia Standing Ord. Fluticasone Propionate (Fluticasone Propionate Nasal 16 Gm [place]) 2 spray NOSTRIL-B DAILY PRN PRN Reason: SEASONAL ALLERGIES Glucose (Glucose Gel 15 Gm Gel..Gram.) 15 gm PO Q15M PRN; Protocol PRN Reason: per Hypoglycemia Standing Ord. Insulin Human Lispro (Insulin Lispro 100 Unit/Ml 3 Ml Vial) 0 unit SUBCUT Q6H [facility]; Protocol Last Admin: 05/05/23 14:34 Dose: Not Given Melatonin (Melatonin 3 Mg Tablet) 6 mg PO BEDTIME PRN PRN Reason: Insomnia Omeprazole (Omeprazole 40 Mg Capsule.Dr) 40 mg PO DAILY@1630 [facility] Ondansetron HCl (Ondansetron Hcl 4 Mg/2 Ml Vial) 4 mg IVPUSH Q8H PRN PRN Reason: Nausea and Vomiting Last Admin: 05/05/23 07:42 Dose: 4 mg Sodium Chloride (0.9 % Sodium Chloride Flush 3 Ml Syringe) 3 ml IVFLUSH QSHIFT [facility] Last Admin: 05/05/23 14:34 Dose: Not Given Home Medications Medication Instructions Recorded Confirmed Last Taken Type albuterol sulfate 90 mcg/actuation 2 puff inhalation Q4H PRN wheezing 05/05/23 05/05/23 Unknown History aerosol inhaler amitriptyline 50 mg tablet 100 mg PO BEDTIME 05/05/23 05/05/23 05/04/23 History atenolol 50 mg tablet 50 mg PO BEDTIME 05/05/23 05/05/23 05/04/23 History dulaglutide 1.5 mg/0.5 mL 1.5 mg subcut TU@1000 05/05/23 05/05/23 05/02/23 History subcutaneous pen injector (Trulicity) fluticasone propionate 50 2 spray intranasal DAILY PRN 05/05/23 05/05/23 Unknown History mcg/actuation nasal SEASONAL ALLERGIES spray,suspension metformin 500 mg tablet,extended 500 mg PO BEDTIME 05/05/23 05/05/23 05/04/23 History release 24 hr omeprazole 40 mg capsule,delayed 40 mg PO DAILY@1630 05/05/23 05/05/23 05/04/23 History release simvastatin 40 mg tablet 40 mg PO BEDTIME 05/05/23 05/05/23 05/04/23 History Exam Height,Weight and Vital Signs: Height 5 ft 8 in Weight 76.6 kg Last Vital Signs Temp 98.5 F 05/05/23 14:39 Pulse 95 05/05/23 14:39 Resp 18 05/05/23 14:39 BP 154/82 H 05/05/23 14:39 Pulse Ox 96 05/05/23 14:39 O2 Del Method Room Air 05/05/23 14:39 Pertinent Lab Results Pertinent Lab Results: Laboratory Tests 05/04/23 05/04/23 05/04/23 22:47 23:00 23:21 WBC 13.8 H RBC 5.53 Hgb 15.8 Hct 46.6 MCV 84.3 MCH 28.6 MCHC 33.9 RDW 13.3 Plt Count 261 MPV 9.3 L Immature Gran % (Auto) 0.4 Neut % (Auto) 77.9 H Lymph % (Auto) 13.1 L [place] % (Auto) 5.5 Eos % (Auto) 2.4 Baso % (Auto) 0.7 Lymph # (Auto) 1.8 [place] # (Auto) 0.8 Eos # (Auto) 0.3 Baso # (Auto) 0.1 Abs Immat Gran (auto) 0.05 H Absolute Neuts (auto) 10.8 H Absolute Nucleated RBC 0.000 Nucleated RBC % (auto) 0.0 Smear Tech's Comments Sodium 142 Potassium 4.6 Chloride 105 Carbon Dioxide 26 Anion Gap 16 BUN 12 Creatinine 1.27 Estim Creat Clear Calc 53.1 Estimated GFR 56 POC Glucose Random Glucose 164 H Calcium 9.9 Total Bilirubin 0.4 AST 20 ALT 31 Alkaline Phosphatase 56 Total Protein 8.1 H Albumin 4.6 Urine Color Yellow Urine Appearance Clear Urine pH 5.5 Ur Specific [place] 1.010 Urine Protein Negative Urine Glucose (UA) 100 H Urine Ketones Negative Urine Blood Trace H Urine Nitrite Negative Ur Leukocyte Esterase Negative Urine RBC 6-10 H Urine WBC 0-5 Ur Squamous Epith Cells 0-2 Urine Bacteria None Seen Hyaline Casts 0-2 Stool Occult Blood POSITIVE Blood Type Antibody Screen 05/05/23 05/05/23 05/05/23 04:04 05:05 09:35 WBC 10.4 RBC 4.80 Hgb 13.8 L Hct 40.0 L MCV 83.3 MCH 28.8 MCHC 34.5 RDW 13.3 Plt Count 183 D MPV 10.0 Immature Gran % (Auto) 0.4 Neut % (Auto) 64.0 Lymph % (Auto) 24.8 [place] % (Auto) 7.3 Eos % (Auto) 2.8 Baso % (Auto) 0.7 Lymph # (Auto) 2.6 [place] # (Auto) 0.8 Eos # (Auto) 0.3 Baso # (Auto) 0.1 Abs Immat Gran (auto) 0.04 H Absolute Neuts (auto) 6.7 Absolute Nucleated RBC 0.000 Nucleated RBC % (auto) 0.0 Smear Tech's Comments VERIFIED Sodium 139 Potassium 4.5 Chloride 108 Carbon Dioxide 22 Anion Gap 14 BUN 11 Creatinine 1.05 Estim Creat Clear Calc 64.2 Estimated GFR > 60 POC Glucose 124 H 128 H Random Glucose 130 H Calcium 8.8 D Total Bilirubin AST ALT Alkaline Phosphatase Total Protein Albumin Urine Color Urine Appearance Urine pH Ur Specific [place] Urine Protein Urine Glucose (UA) Urine Ketones Urine Blood Urine Nitrite Ur Leukocyte Esterase Urine RBC Urine WBC Ur Squamous Epith Cells Urine Bacteria Hyaline Casts Stool Occult Blood Blood Type A Positive Antibody Screen NEGATIVE 05/05/23 05/05/23 12:30 14:46 WBC RBC Hgb 14.0 Hct 40.9 L MCV MCH MCHC RDW Plt Count MPV Immature Gran % (Auto) Neut % (Auto) Lymph % (Auto) [place] % (Auto) Eos % (Auto) Baso % (Auto) Lymph # (Auto) [place] # (Auto) Eos # (Auto) Baso # (Auto) Abs Immat Gran (auto) Absolute Neuts (auto) Absolute Nucleated RBC Nucleated RBC % (auto) Smear Tech's Comments Sodium Potassium Chloride Carbon Dioxide Anion Gap BUN Creatinine Estim Creat Clear Calc Estimated GFR POC Glucose 121 H Random Glucose Calcium Total Bilirubin AST ALT Alkaline Phosphatase Total Protein Albumin Urine Color Urine Appearance Urine pH Ur Specific [place] Urine Protein Urine Glucose (UA) Urine Ketones Urine Blood Urine Nitrite Ur Leukocyte Esterase Urine RBC Urine WBC Ur Squamous Epith Cells Urine Bacteria Hyaline Casts Stool Occult Blood Blood Type Antibody Screen Airway Mallampati Class: II TM Dist: >3cm Neck ROM: Full Assessment and Plan Assessment Anesthesia Assessment: Anesthesia Plan Discussed and Chart Reviewed Final Anesthetic Review Family History of Problems with Anesthesia: No History of Problems with Anesthesia: No NPO: Yes ASA Class: III and Emergency Final Preanesthetic Review: No Changes in Pt Med Stat, Meds/Allgs Chart Reviewed, Consent Obtained/Reviewed and Anes Risks/Benef Reviewed Patient Risk: Intermediate Procedure Risk: Low Anesthetic Plan Anesthetic Plan: TIVA Disposition: Standard PACU
--- NOTE | 2023-05-05 16:02 | P.OP_ITS ---
Operative Note Operative Note Date of Service: 05/05/23 Narrative: Procedure: Flexible sigmoidoscopy Indication: Lower GI bleeding Endoscopist: Latonia Vale MD Anesthesia Provider: Dr Romulo Soto Anesthesia type: MAC Instrument: Olympus [id number] Consent: Indication, risks vs benefits, and alternatives were discussed with the patient who gave written informed consent to proceed. EKG, pulse, pulse oximetry and blood pressure were monitored throughout the procedure. Please see anesthesia flowsheet. Procedure: The patient was brought to the procedure room and placed in the left lateral decubitus position. IV medications were administered by the anesthesia provider in attendance. A digital rectal exam was performed which was abnormal due to finding of hemorrhoids. The gastroscope was then inserted through the anus and advanced through the colon to the distal transverse colon. Mucosa was carefully examined under high definition white light as the instrument was slowly withdrawn in a retrograde panoramic fashion. Retroflexion was performed in rectum. The procedure was not difficult. There were no immediate obvious complications. Limitations: No limitations. Findings: Mucosa: Semi solid brown stool seen in the colon. Mucosa normal to splenic flexure. Protruding lesions: * Large internal hemorrhoids with stigmata of recent bleeding on at least one column. Excavated lesions: * Moderate diverticulosis of left sided colon. Impression: 1. Normal colon mucosa 2. External and internal hemorrhoids WITH stigmata of recent bleeding 3. Diverticulosis Recommendations: - Likely had hemorrhoidal bleeding - Recommend Anusol supp at bedtime x 7 days. - High fiber diet - Avoid constipation and straining - Consider surgery consultation as outpatient if bleeding persists despite above measures
--- NOTE | 2023-05-05 17:33 | PC.NURSE ---
pt returned from pacu, personnel monitor intact nsr 80s, vss, humphrey cath patient/draining clear yellow urine, pt c/o penile pain only when he sees urine come out in the tube states its a stinging 7-8/ pain, no other complaints at this time, call doran within reach, will continue to monitor
[2023-05-05 20:44] LABS: Glucose, Whole Blood 158 mg/dL (60-115)
[2023-05-05] MEDS: Atorvastatin Calcium 20 MG TABLET PO (21:42)
[2023-05-05] MEDS: atenoloL 50 MG TABLET PO (21:42)
[2023-05-05] MEDS: Insulin Lispro 100 UNIT/ML 3 ML VIAL SUBCUT (21:43)
[2023-05-05] MEDS: Amitriptyline HCl 50 MG TABLET 100 MG PO (22:17)
--- NOTE | 2023-05-05 22:21 | PC.NURSE ---
This health technical writer assumed care of this Pt at 1900. Pt A&Ox3, reports 09/12 penile pain. 16F catheter in intact, draining yellow urine with tint of pink. Pt medicated per MAR. Report complete, Pt will be transported to room 487 by semiconductor manufacturing technician.
[2023-05-05 22:42] LABS: Glucose, Whole Blood 155 mg/dL (60-115)
[2023-05-06] VITALS (7 sets, daily range): BP systolic 111–149; BP diastolic 57–88; PULSE 79–93; RESP 16–20; TEMP 36.2–36.7; O2SAT 92–97
[2023-05-06] MEDS: Acetaminophen 325 MG TABLET 650 MG PO (01:52)
[2023-05-06 03:14] LABS: Glucose, Whole Blood 135 mg/dL (60-115)
[2023-05-06 07:23] LABS: Glucose, Whole Blood 135 mg/dL (60-115)
[2023-05-06] MEDS: Tamsulosin HCL 0.4 MG CAPSULE PO ×2 (09:48→21:14)
[2023-05-06] MEDS: 0.9 % Sodium Chloride Flush 3 ML SYRINGE IVFLUSH ×3 (09:49→21:22)
[2023-05-06 11:34] LABS: Glucose, Whole Blood 199 mg/dL (60-115)
--- NOTE | 2023-05-06 12:26 | P.PNIM_ITS ---
Subjective Subjective Date of Service: 05/06/23 Interval History: f/u urinary retention and rectal bleed has humphrey in, Flex sig yesterday, no bleeding hemorrhoid diarrhea this morning Physical Exam 2 Vital Signs: Vital Signs: Last Vital Signs Temp 97.5 F 05/06/23 11:26 Pulse 86 05/06/23 11:26 Resp 18 05/06/23 11:26 BP 111/57 L 05/06/23 11:26 Pulse Ox 93 05/06/23 11:26 O2 Del Method Room Air 05/06/23 11:26 BMI result Body Mass Index 26.6 General: AO X 3, no acute distress Resp: CTA bilateral CVS: S1,S2,RRR GI: +BS, NT, no distention Skin: No rash Neuro: motor grossly intact Psych: appropriate affect Objective Data Active Medications Acetaminophen (Acetaminophen 325 Mg Tablet) 650 mg PO Q6H PRN PRN Reason: Pain, Mild (Pain Scale 1-3) Last Admin: 05/06/23 01:52 Dose: 650 mg Documented By: YONATHAN Albuterol Sulfate (Albuterol Sulfate 90 Mcg 8 Gm Inhaler) 2 puff INHALE Q4H PRN PRN Reason: wheezing Amitriptyline HCl (Amitriptyline Hcl 50 Mg Tablet) 100 mg PO BEDTIME LEO Last Admin: 05/05/23 22:17 Dose: 100 mg Documented By: WERO Atenolol (Atenolol 50 Mg Tablet) 50 mg PO BEDTIME [facility]; Protocol Last Admin: 05/05/23 21:42 Dose: 50 mg Documented By: WERO Atorvastatin Calcium (Atorvastatin Calcium 20 Mg Tablet) 20 mg PO BEDTIME LEO Last Admin: 05/05/23 21:42 Dose: 20 mg Documented By: WERO Dextrose (Dextrose 50 % 25 Gm/50 Ml Syringe) 25 gm IVPUSH Q15M PRN; Protocol PRN Reason: per Hypoglycemia Standing Ord. Fluticasone Propionate (Fluticasone Propionate Nasal 16 Gm [place]) 2 spray NOSTRIL-B DAILY PRN PRN Reason: SEASONAL ALLERGIES Glucose (Glucose Gel 15 Gm Gel..Gram.) 15 gm PO Q15M PRN; Protocol PRN Reason: per Hypoglycemia Standing Ord. Insulin Human Lispro (Insulin Lispro 100 Unit/Ml 3 Ml Vial) 0 unit SUBCUT Q6H [facility]; Protocol Last Admin: 05/06/23 09:13 Dose: Not Given Documented By: NOEL Non-Admin Reason: No Insulin Coverage Melatonin (Melatonin 3 Mg Tablet) 6 mg PO BEDTIME PRN PRN Reason: Insomnia Metformin HCl (Metformin Hcl Er 500 Mg Tab.Er.24h) 500 mg PO BEDTIME [facility] Last Admin: 05/05/23 23:10 Dose: Not Given Documented By: JOZEF Non-Admin Reason: pt with recent contrast dye Omeprazole (Omeprazole 40 Mg Capsule.Dr) 40 mg PO DAILY@1630 [facility] Last Admin: 05/05/23 17:39 Dose: Not Given Documented By: LIZA Non-Admin Reason: NPO Ondansetron HCl (Ondansetron Hcl 4 Mg/2 Ml Vial) 4 mg IVPUSH Q8H PRN PRN Reason: Nausea and Vomiting Last Admin: 05/05/23 23:08 Dose: 4 mg Documented By: JOZEF Sodium Chloride (0.9 % Sodium Chloride Flush 3 Ml Syringe) 3 ml IVFLUSH QSHIFT [facility] Last Admin: 05/06/23 09:49 Dose: 3 ml Documented By: NOEL Tamsulosin HCl (Tamsulosin Hcl 0.4 Mg Capsule) 0.4 mg PO DAILY [facility] Last Admin: 05/06/23 09:48 Dose: 0.4 mg Documented By: NOEL Labs 05/05/23 12:30 05/05/23 05:05 Labs: Laboratory Results - last 24 hr 05/05/23 05/05/23 05/05/23 14:46 20:38 22:37 POC Glucose 121 H 158 H 155 H 05/06/23 05/06/23 05/06/23 03:09 07:14 11:29 POC Glucose 135 H 135 H 199 H Assessment and Plan (1) GI bleed: Status: Acute (2) Urinary retention: Status: Acute Plan 68-year-old male with pertinent history of [id number] diabetes mellitus, essential hypertension, gastroesophageal reflux disease, peripheral neuropathy, mixed hyperlipidemia who presents to the emergency department for evaluation of urinary retention and bright red blood per rectum. Acute GI bleed, Flex-Sig 05/04 showed hemorrhoid, if bleeding then surgery eval Urinary retention: Humphrey catheter placed in the ER. Awaiting on urology eval. Added Flomax Essential hypertension, continue Atenolol [id number] diabetes mellitus, SSI, metformin, diabetic diet Peripheral neuropathy: On gabapentin and amitriptyline Mixed hyperlipidemia: On statin Gastroesophageal reflux disease: On PPI Reactive leukocytosis--resolved Diarrhea, check gi panel, cdif DVT prophylaxis: Mechanical Full code need for inpatient: uro eval for urinary retention requiring humphrey cath Quality Stroke Does the patient have a stroke diagnosis?: No VTE Prior VTE?: No VTE Risk Level:: Medical - moderate - high VTE Device Contraindication: N/A - Device Ordered VTE Drug Contraindication: Treatment Not Indicated
--- NOTE | 2023-05-06 15:44 | P.CNUR_ITS ---
History of Present Illness Consult details Consult date: 05/06/23 Narrative: CC: Urinary retention 68-year-old Urinary retention/nursing unable to place Humphrey catheter Nursing staff have tried to place Humphrey multiple times Humphrey catheter placed by urologic staff member. Good efflux of urine. See nursing note for description of total output. If output less than 500 cc voiding trial may be performed in 48 hours, if output 500 to a 1000 cc voiding trial may be performed in 1 week, if output greater than a 1000 cc catheter should remain for 1 month. If catheter going to remain for longer than 48 hours blue cap should be placed in end of catheter to allow bladder cycling. Cap [place] a [place] [id number]. Patient should be taught how to cycle bladder during the day and empty every 4-6 hours while using a drainage bag overnight. Difficult humphrey placemend CPT 18085 Review of Systems 2 Review of Systems: 700cc retention Foely Placed Constitutional: Constitutional: Reports as per HPI and Reports no additional constitutional complaints Cardiovascular: Cardiovascular: Reports as per HPI and Reports no additional cardiovascular complaints Respiratory: Respiratory: Reports as per HPI and Reports no additional respiratory complaints Gastrointestinal: Gastrointestinal: Reports as per HPI and Reports no additional gastrointestinal complaints Genitourinary: Genitourinary: Reports as per HPI Musculoskeletal: Musculoskeletal: Reports no additional musculoskeletal complaints and Reports as per HPI Neurologic: Reports system reviewed and no additional complaints, except as documented and Reports as per HPI PMFSH Past Medical History Medical History Gastroesophageal reflux disease Essential hypertension Non-insulin dependent type 2 diabetes mellitus Mixed hyperlipidemia Peripheral neuropathy Social History Social History Household Members: Spouse Household Members Other:: [id number] Housing: Apartment Do you presently have visiting nurse or other home services: No Alcohol intake: current Alcohol intake frequency: holidays/special occasions only Patient Tobacco Use Status: Never used Tobacco service: No Meds Allergies Allergy/AdvReac Type Severity Reaction Status Date / Time Sulfa (Sulfonamide Allergy Intermediate HIVES Verified 05/05/23 04:04 Antibiotics) [SULFA (SULFONAMIDE ANTIBIOTICS)] lisinopril [LISINOPRIL] AdvReac Unknown COUGH Verified 05/05/23 04:04 ENVIROMENTAL Allergy Unknown UNKNOWN Uncoded 11/21/19 16:17 Active Medications: Current Medications Acetaminophen (Acetaminophen 325 Mg Tablet) 650 mg PO Q6H PRN PRN Reason: Pain, Mild (Pain Scale 1-3) Last Admin: 05/06/23 01:52 Dose: 650 mg Albuterol Sulfate (Albuterol Sulfate 90 Mcg 8 Gm Inhaler) 2 puff INHALE Q4H PRN PRN Reason: wheezing Amitriptyline HCl (Amitriptyline Hcl 50 Mg Tablet) 100 mg PO BEDTIME [facility] Last Admin: 05/05/23 22:17 Dose: 100 mg Atenolol (Atenolol 50 Mg Tablet) 50 mg PO BEDTIME [facility]; Protocol Last Admin: 05/05/23 21:42 Dose: 50 mg Atorvastatin Calcium (Atorvastatin Calcium 20 Mg Tablet) 20 mg PO BEDTIME [facility] Last Admin: 05/05/23 21:42 Dose: 20 mg Dextrose (Dextrose 50 % 25 Gm/50 Ml Syringe) 25 gm IVPUSH Q15M PRN; Protocol PRN Reason: per Hypoglycemia Standing Ord. Fluticasone Propionate (Fluticasone Propionate Nasal 16 Gm [place]) 2 spray NOSTRIL-B DAILY PRN PRN Reason: SEASONAL ALLERGIES Glucose (Glucose Gel 15 Gm Gel..Gram.) 15 gm PO Q15M PRN; Protocol PRN Reason: per Hypoglycemia Standing Ord. Insulin Human Lispro (Insulin Lispro 100 Unit/Ml 3 Ml Vial) 0 unit SUBCUT Q6H [facility]; Protocol Last Admin: 05/06/23 09:13 Dose: Not Given Melatonin (Melatonin 3 Mg Tablet) 6 mg PO BEDTIME PRN PRN Reason: Insomnia Metformin HCl (Metformin Hcl Er 500 Mg Tab.Er.24h) 500 mg PO BEDTIME [facility] Last Admin: 05/05/23 23:10 Dose: Not Given Omeprazole (Omeprazole 40 Mg Capsule.Dr) 40 mg PO DAILY@1630 [facility] Last Admin: 05/05/23 17:39 Dose: Not Given Ondansetron HCl (Ondansetron Hcl 4 Mg/2 Ml Vial) 4 mg IVPUSH Q8H PRN PRN Reason: Nausea and Vomiting Last Admin: 05/05/23 23:08 Dose: 4 mg Sodium Chloride (0.9 % Sodium Chloride Flush 3 Ml Syringe) 3 ml IVFLUSH QSHIFT [facility] Last Admin: 05/06/23 09:49 Dose: 3 ml Tamsulosin HCl (Tamsulosin Hcl 0.4 Mg Capsule) 0.4 mg PO DAILY [facility] Last Admin: 05/06/23 09:48 Dose: 0.4 mg Home Medications Medication Instructions Recorded Confirmed Last Taken Type albuterol sulfate 90 mcg/actuation 2 puff inhalation Q4H PRN wheezing 05/05/23 05/05/23 Unknown History aerosol inhaler amitriptyline 50 mg tablet 100 mg PO BEDTIME 05/05/23 05/05/23 05/04/23 History atenolol 50 mg tablet 50 mg PO BEDTIME 05/05/23 05/05/23 05/04/23 History dulaglutide 1.5 mg/0.5 mL 1.5 mg subcut TU@1000 05/05/23 05/05/23 05/02/23 History subcutaneous pen injector (Trulicity) fluticasone propionate 50 2 spray intranasal DAILY PRN 05/05/23 05/05/23 Unknown History mcg/actuation nasal SEASONAL ALLERGIES spray,suspension metformin 500 mg tablet,extended 500 mg PO BEDTIME 05/05/23 05/05/23 05/04/23 History release 24 hr omeprazole 40 mg capsule,delayed 40 mg PO DAILY@1630 05/05/23 05/05/23 05/04/23 History release simvastatin 40 mg tablet 40 mg PO BEDTIME 05/05/23 05/05/23 05/04/23 History Physical Exam 2 Vital Signs: Vital Signs: Last Vital Signs Temp 97.5 F 05/06/23 11:26 Pulse 86 05/06/23 11:26 Resp 18 05/06/23 11:26 BP 111/57 L 05/06/23 11:26 Pulse Ox 93 05/06/23 11:26 O2 Del Method Room Air 05/06/23 11:26 BMI result Body Mass Index 26.6 Const: General: cooperative, healthy appearing, comfortable and no acute distress Orientation/consciousness: patient oriented x3 HEENT: Face and sinus: Yes normal facial exam Mouth: moist mucous membranes Neck: Neck: Yes normal visual inspection, Yes full ROM and Yes trachea midline Chest: Chest palpation & inspection: normal inspection of the chest Resp: Effort & Inspection: normal respiratory effort, able to speak in complete sentences and no respiratory distress GI: Inspection: Yes normal to inspection Back/Spine/Pelvis: Cervical Spine: normal cervical lordosis Thoracic/Lumbar Spine: thoracic and lumbar spine normal to inspection Skin: General skin exam: no rashes or lesions noted Neuro: General: patient oriented x3, tone normal and moves all extremities Extrem: General: Yes normal to inspection and Yes capillary refill normal Results Labs 05/05/23 12:30 05/05/23 05:05 Labs: Abnormal lab results 05/05/23 05/05/23 05/06/23 Range/Units 20:38 22:37 03:09 POC Glucose 158 H 155 H 135 H (60-115) mg/dL 05/06/23 05/06/23 Range/Units 07:14 11:29 POC Glucose 135 H 199 H (60-115) mg/dL Urine 05/04/23 Range/Units 23:00 Urine Color Yellow Urine Appearance Clear Urine pH 5.5 (5.0-9.0) Ur Specific [place] 1.010 (1.005-1.025) Urine Protein Negative (Neg-Trace) mg/dL Urine Glucose (UA) 100 H (Negative) mg/dL All other labs normal. Assessment and Plan (1) Urinary retention: Status: Acute Plan Voiding trial in 2 weeks Procedures Date of Service Date of Service: 05/14/23
[2023-05-06 15:53] LABS: Glucose, Whole Blood 177 mg/dL (60-115)
[2023-05-06] MEDS: Insulin Lispro 100 UNIT/ML 3 ML VIAL SUBCUT (16:13)
[2023-05-06] MEDS: Omeprazole 40 MG CAPSULE.DR PO (16:13)
[2023-05-06] MEDS: Atorvastatin Calcium 20 MG TABLET PO (21:14)
[2023-05-06] MEDS: atenoloL 50 MG TABLET PO (21:14)
[2023-05-06] MEDS: Amitriptyline HCl 50 MG TABLET 100 MG PO (21:15)
[2023-05-06 21:16] LABS: CDiff Gene PCR NEGATIVE (Negative)
[2023-05-06] MEDS: Melatonin 3 MG TABLET 6 MG PO (21:16)
[2023-05-06 21:18] LABS: Glucose, Whole Blood 133 mg/dL (60-115)
[2023-05-07] VITALS (7 sets, daily range): BP systolic 116–137; BP diastolic 62–81; PULSE 82–101; RESP 16–24; TEMP 36.1–36.7; O2SAT 93–98
[2023-05-07 03:07] LABS: Glucose, Whole Blood 123 mg/dL (60-115)
[2023-05-07 09:07] LABS: Glucose, Whole Blood 201 mg/dL (60-115)
[2023-05-07 09:39] LABS: Adenovirus F 40/41 Not Detected (Not Detect.); Astrovirus Not Detected (Not Detect.); Campylobacter Not Detected (Not Detect.); Cryptosporidium Not Detected (Not Detect.); Cyclospora cayetanensis Not Detected (Not Detect.); E. coli EAEC Not Detected (Not Detect.); E. coli EPEC Not Detected (Not Detect.); E. coli ETEC Not Detected (Not Detect.); E. coli STEC Not Detected (Not Detect.); Entamoeba histolytica Not Detected (Not Detect.); Giardia lamblia Not Detected (Not Detect.); Norovirus GI/GII Not Detected (Not Detect.); Plesiomonas shigelloides Not Detected (Not Detect.); Rotavirus A Not Detected (Not Detect.); Salmonella Not Detected (Not Detect.); Sapovirus Not Detected (Not Detect.); Shigella sp./EIEC Not Detected (Not Detect.); Vibrio Not Detected (Not Detect.); Vibrio Cholerae Not Detected (Not Detect.); Yersinia enterocolitica Not Detected (Not Detect.)
[2023-05-07] MEDS: Insulin Lispro 100 UNIT/ML 3 ML VIAL SUBCUT ×2 (10:05→15:39)
[2023-05-07] MEDS: 0.9 % Sodium Chloride Flush 3 ML SYRINGE IVFLUSH ×3 (10:06→21:54)
--- NOTE | 2023-05-07 13:02 | HO.POSTANES ---
Post Anesthesia Evaluation Post Anesthesia Evaluation Date of Service: 05/07/23 Vital Signs: Vital Signs Temp Pulse Resp BP Pulse Ox O2 Del Method 05/07/23 08:00 97.3 F 99 20 128/76 93 Room Air 05/07/23 02:58 97.1 F 82 16 137/75 95 Room Air Anesthesia: TIVA Mental Status: Awake Pain Control: Satisfactory Nausea/Vomiting: None Hydration: Adequate Anesthesia-Related Issues: No Anes. Related Issues
[2023-05-07 15:10] LABS: Glucose, Whole Blood 157 mg/dL (60-115)
[2023-05-07] MEDS: Omeprazole 40 MG CAPSULE.DR PO (15:39)
--- NOTE | 2023-05-07 16:52 | HO.PM.IMPN ---
Subjective Subjective Date of Service: 05/08/23 Interval History: f/u urinary retention and rectal bleed has humphrey in, Flex sig showed bleeding hemorrhoid, no more diarrhea Physical Exam Vital Signs: Vital Signs: Last Vital Signs Temp 98.0 F 05/07/23 16:00 Pulse 101 H 05/07/23 16:00 Resp 24 H 05/07/23 16:00 BP 117/68 05/07/23 16:00 Pulse Ox 98 05/07/23 16:00 O2 Del Method Room Air 05/07/23 16:00 BMI result Body Mass Index 26.6 General: AO X 3, no acute distress Resp: CTA bilateral CVS: S1,S2,RRR GI: +BS, NT, no distention Skin: No rash Neuro: motor grossly intact Psych: appropriate affect Objective Data Active Medications Acetaminophen (Acetaminophen 325 Mg Tablet) 650 mg PO Q6H PRN PRN Reason: Pain, Mild (Pain Scale 1-3) Last Admin: 05/06/23 01:52 Dose: 650 mg Documented By: YONATHAN Albuterol Sulfate (Albuterol Sulfate 90 Mcg 8 Gm Inhaler) 2 puff INHALE Q4H PRN PRN Reason: wheezing Amitriptyline HCl (Amitriptyline Hcl 50 Mg Tablet) 100 mg PO BEDTIME [facility] Last Admin: 05/06/23 21:15 Dose: 100 mg Documented By: KYLIE Atenolol (Atenolol 50 Mg Tablet) 50 mg PO BEDTIME [facility]; Protocol Last Admin: 05/06/23 21:14 Dose: 50 mg Documented By: YKLIE Atorvastatin Calcium (Atorvastatin Calcium 20 Mg Tablet) 20 mg PO BEDTIME [facility] Last Admin: 05/06/23 21:14 Dose: 20 mg Documented By: KYLIE Dextrose (Dextrose 50 % 25 Gm/50 Ml Syringe) 25 gm IVPUSH Q15M PRN; Protocol PRN Reason: per Hypoglycemia Standing Ord. Fluticasone Propionate (Fluticasone Propionate Nasal 16 Gm [place]) 2 spray NOSTRIL-B DAILY PRN PRN Reason: SEASONAL ALLERGIES Glucose (Glucose Gel 15 Gm Gel..Gram.) 15 gm PO Q15M PRN; Protocol PRN Reason: per Hypoglycemia Standing Ord. Insulin Human Lispro (Insulin Lispro 100 Unit/Ml 3 Ml Vial) 0 unit SUBCUT Q6H [facility]; Protocol Last Admin: 05/07/23 15:39 Dose: 2 unit Documented By: NOEL Melatonin (Melatonin 3 Mg Tablet) 6 mg PO BEDTIME PRN PRN Reason: Insomnia Last Admin: 05/06/23 21:16 Dose: 6 mg Documented By: KYLIE Omeprazole (Omeprazole 40 Mg Capsule.Dr) 40 mg PO DAILY@1630 [facility] Last Admin: 05/07/23 15:39 Dose: 40 mg Documented By: NOEL Ondansetron HCl (Ondansetron Hcl 4 Mg/2 Ml Vial) 4 mg IVPUSH Q8H PRN PRN Reason: Nausea and Vomiting Last Admin: 05/05/23 23:08 Dose: 4 mg Documented By: JOZEF Sodium Chloride (0.9 % Sodium Chloride Flush 3 Ml Syringe) 3 ml IVFLUSH QSHIFT [facility] Last Admin: 05/07/23 15:40 Dose: 3 ml Documented By: NOEL Tamsulosin HCl (Tamsulosin Hcl 0.4 Mg Capsule) 0.4 mg PO BEDTIME [facility] Last Admin: 05/06/23 21:14 Dose: 0.4 mg Documented By: KYLIE Labs 05/05/23 12:30 05/05/23 05:05 Labs: Laboratory Results - last 24 hr 05/06/23 05/06/23 05/07/23 13:30 21:07 03:02 POC Glucose 133 H 123 H Stl C. cayetanensis PCR Not Detected Stool Rotavirus A PCR Not Detected Stl Adenov F 40/41 PCR Not Detected Stool Astrovirus (PCR) Not Detected Stool Campylobacter PCR Not Detected Stool Cryptosporidium PCR Not Detected Stl Sh Tox Pr E STEC PCR Not Detected Stool E coli O157 PCR Not applicable Stl Enterotoxigenic E PCR Not Detected Stool EPEC (PCR) Not Detected Stool EAEC (PCR) Not Detected Stl E. histolytica PCR Not Detected Stool Giardia Lamblia PCR Not Detected Stl P. shigelloides PCR Not Detected Stool Salmonella PCR Not Detected Stool Sapovirus (PCR) Not Detected Stl Shigella/EIEC PCR Not Detected St Y.enterocolitica PCR Not Detected Stool Vibrio (PCR) Not Detected Stl Vibrio cholerae PCR Not Detected Stl Norovirus GI/GII PCR Not Detected C. difficile Tox B Gene NEGATIVE 05/07/23 05/07/23 08:59 15:06 POC Glucose 201 H 157 H Stl C. cayetanensis PCR Stool Rotavirus A PCR Stl Adenov F 40/41 PCR Stool Astrovirus (PCR) Stool Campylobacter PCR Stool Cryptosporidium PCR Stl Sh Tox Pr E STEC PCR Stool E coli O157 PCR Stl Enterotoxigenic E PCR Stool EPEC (PCR) Stool EAEC (PCR) Stl E. histolytica PCR Stool Giardia Lamblia PCR Stl P. shigelloides PCR Stool Salmonella PCR Stool Sapovirus (PCR) Stl Shigella/EIEC PCR St Y.enterocolitica PCR Stool Vibrio (PCR) Stl Vibrio cholerae PCR Stl Norovirus GI/GII PCR C. difficile Tox B Gene Assessment and Plan (1) Urinary retention: Status: Acute (2) GI bleed: Status: Acute Plan 68-year-old male with pertinent history of xax-jmihnzq-aabfzxgnv diabetes mellitus, essential hypertension, gastroesophageal reflux disease, peripheral neuropathy, mixed hyperlipidemia who presents to the emergency department for evaluation of urinary retention and bright red blood per rectum. Acute GI bleed, Flex-Sig 05/04 showed hemorrhoid, if bleeding then surgery eval Urinary retention: Humphrey catheter placed in the ER. Awaiting on urology eval. Flomax. Uro recommend Humphrey at dc and voiding trial in the office Essential hypertension, continue Atenolol Ecd-zudwuyq-tfotnomli diabetes mellitus, SSI, metformin, diabetic diet Peripheral neuropathy: On gabapentin and amitriptyline Mixed hyperlipidemia: On statin Gastroesophageal reflux disease: On PPI Reactive leukocytosis--resolved Diarrhea, cdif and gi panel negative, he thinks it was due to soy sauce DVT prophylaxis: Mechanical Full code need for inpatient: uro eval for urinary retention requiring humphrey cath Quality Stroke Does the patient have a stroke diagnosis?: No VTE Prior VTE?: No VTE Risk Level:: Medical - moderate - high VTE Device Contraindication: N/A - Device Ordered VTE Drug Contraindication: Treatment Not Indicated
[2023-05-07 21:13] LABS: Glucose, Whole Blood 133 mg/dL (60-115)
[2023-05-07] MEDS: Amitriptyline HCl 50 MG TABLET 100 MG PO (21:53)
[2023-05-07] MEDS: Atorvastatin Calcium 20 MG TABLET PO (21:53)
[2023-05-07] MEDS: atenoloL 50 MG TABLET PO (21:53)
[2023-05-07] MEDS: Tamsulosin HCL 0.4 MG CAPSULE PO (21:54)
[2023-05-08 04:00] VITALS: BP 140/78; PULSE 88; RESP 19; TEMP 36.6; O2SAT 92
[2023-05-08 07:27] VITALS: BP 135/72; PULSE 83; RESP 18; TEMP 36.1; O2SAT 94
[2023-05-08 07:37] LABS: Glucose, Whole Blood 140 mg/dL (60-115)
[2023-05-08] MEDS: 0.9 % Sodium Chloride Flush 3 ML SYRINGE IVFLUSH (09:57)
[2023-05-08] MEDS: ondansetron HCL 4 MG/2 ML VIAL IVPUSH (10:47)
[2023-05-08 11:22] VITALS: BP 125/81; PULSE 91; RESP 18; TEMP 36.1; O2SAT 96
--- NOTE | 2023-05-08 11:33 | PM.DS ---
DS: Providers Provider Date of Service: 05/08/23 Date of admission: 05/05/23 02:51 Primary care physician: Aiden Angulo III, MD Consults: 05/05/23 02:52 Consult to Gastroenterology Routine Consulting Provider: Latonia Vale Reason for consultation: GI bleed Consult to Urology Routine Consulting Provider: Kenyon Hannah Reason for consultation: Urinary retention DS: Diagnosis Discharge Diagnosis (1) Urinary retention: Status: Acute (2) GI bleed: Status: Acute DS: Summary Hospital Course Hospital Course: Chief Complaint: Bright red blood per rectum This is a 68-year-old male with pertinent history of uld-eiiozgu-vohadfdkl diabetes mellitus, essential hypertension, gastroesophageal reflux disease, peripheral neuropathy, mixed hyperlipidemia who presents to the emergency department for evaluation of urinary retention and bright red blood per rectum. Patient states that he had 3 episodes of painless bright red blood per rectum on the day of presentation. This was without fever, chills, nausea, vomiting or abdominal discomfort. Patient states the last time this happened was around 4 years ago when he was diagnosed with diverticulitis. Unknown last colonoscopy. Patient states that on the day of presentation he also could not pass urine. This has never happened before. No history of BPH that he knows of. No chest discomfort, palpitations, shortness of breath. In the emergency department, Humphrey catheter was placed for urinary retention. Stool occult blood positive and imaging with focal hyper density along rectum concerning for active hemorrhage. Hospital course: He presented because acute urinary retention and while straining to void, he had blood in the in the stool. As for urinary retention a humphrey cath was inserted. A CT of abdomen and pelvis showed 1. Subtle focal hyperdensity along the posterior aspect of the collapsed rectum, suggesting a small amount of active hemorrhage. If not recently performed, correlation with follow-up colonoscopy is recommended as underlying mass cannot be excluded. 2. Colonic diverticulosis without definite diverticulitis. 3. Enlarged prostate gland. He had a Flex sig showing hemorrhoid but no active bleed. Hemoglobin and hematocrit remain unremarkable. As for urinary retention, a humphrey cath was inserted, he was started on Flomax, urology recommended the patient going home with humphrey and to have voiding trial in the office but he has opted to have voiding trial in the hospital and he's voiding now. Time Attestation Discharge Coordination Time: discharge time of ____ minutes Quality: Safe Use of Opioids Does Pt have an Active Cancer Diagnosis on the Problem List?: No Quality: Stroke Does the patient have a stroke diagnosis?: No Physical Exam Vital Signs: Vital Signs: Last Vital Signs Temp 96.9 F 05/08/23 11:22 Pulse 91 05/08/23 11:22 Resp 18 05/08/23 11:22 BP 125/81 05/08/23 11:22 Pulse Ox 96 05/08/23 11:22 O2 Del Method Room Air 05/08/23 11:22 BMI result Body Mass Index 26.6 DS: Data Data Completed and Pending Labs on day of discharge: Laboratory Results - last 24 hr 05/07/23 05/07/23 05/08/23 15:06 21:01 07:30 POC Glucose 157 H 133 H 140 H Discharge Plan Discharge Anticipated Discharge Date/Time: 05/08/23 11:26 Patient Disposition: Home, Self-Care Discharge Diagnosis: Urinary retention, bleeding hemorrhoid Referrals: Aiden Angulo III, MD [Primary Care Provider] - 1 Week Discharge Medications: New tamsulosin 0.4 mg Capsule 0.4 mg PO BEDTIME Qty: 90 0RF Continued metformin 500 mg Tablet Extended Release 24 Hr 500 mg PO BEDTIME simvastatin 40 mg Tablet 40 mg PO BEDTIME amitriptyline 50 mg Tablet 100 mg PO BEDTIME atenolol 50 mg Tablet 50 mg PO BEDTIME omeprazole 40 mg Capsule,Delayed Release(Dr/Ec) 40 mg PO DAILY@1630 albuterol sulfate 90 mcg/actuation HFA aerosol inhaler 2 puff inhalation Q4H PRN (Reason: wheezing) fluticasone propionate 50 mcg/actuation spray,suspension 2 spray intranasal DAILY PRN (Reason: SEASONAL ALLERGIES) Trulicity 1.5 mg/0.5 mL Pen Injector 1.5 mg SUBCUT TU@1000 Discharge Orders: Discharge Order (Routine); Ordered 05/08/23 Ordered By: Juliocesar Jack Diet: Advance to usual diet Activity on Discharge: As tolerated Stand Alone Forms: Patient Portal Discharge page Care Plan Goals: recovery from urinary retention, and GI bleed due to hemorrhoids. Health Concerns: Urinary retention likely from BPH bleeding hemorrhoid Plan of Treatment: take Flomax as recommended for urinary retention, BPH Follow-up with Dr. Hannah follow-up with your primary care doctor, if you experience further bleeding from the hemorrhoid you may need to see a surgeon for intervention. Assessment: See above
--- NOTE | 2023-05-08 11:37 | PC.NURSE ---
Kumari removed at 1026 by this RN. Pt tolerated well, pt due to void 1630, urinal at bedside. Will monitor output
--- NOTE | 2023-05-08 11:45 | MHC.CM.PN ---
PT MEDICALLY CLEARED FOR DC HOME SELF-CARE, PT WILL ARRANGE TRANSPORT.
[2023-05-08 11:49] LABS: Glucose, Whole Blood 131 mg/dL (60-115)
[2023-05-08 15:00] VITALS: O2SAT 98
== END 2023-05-08 16:03 | disposition home or self-care (01) | DRG 379 ==
LOC: HO.ED 05-05 02:57 → HO.EDOVER 05-05 06:11 → HO.IMC 05-05 20:09
PROVIDERS: Internal Medicine; Admitting Provider Student in an Organized Health Care Education/Training Program; Emergency Provider Student in an Organized Health Care Education/Training Program; PCP Internal Medicine; Visit Provider Internal Medicine
PROC: 0DJD8ZZ Inspection of Lower Intestinal Tract, Via Natural or Artificial Opening Endoscopic (ICD-10-PCS; CPT 45330; principal; 2023-05-05 14:50)
DX: K57.31 Diverticulosis of large intestine without perforation or abscess with bleeding (principal); E78.2 Mixed hyperlipidemia; K21.9 Gastro-esophageal reflux disease without esophagitis; K64.8 Other hemorrhoids; K64.4 Residual hemorrhoidal skin tags; R33.9 Retention of urine, unspecified; I10 Essential (primary) hypertension; E11.42 Type 2 diabetes mellitus with diabetic polyneuropathy; Z79.84 Long term (current) use of oral hypoglycemic drugs; Z79.85 Long-term (current) use of injectable non-insulin antidiabetic drugs; Z79.899 Other long term (current) drug therapy
CPT/HCPCS: 45330; 36415; 74178; 80048; 80053; 81001; 82272; 82947; 85014; 85018; 85025; 86850; 86900; 86901; 87493; 87507; 99222; 99285; C1758; J2405; J7120; Q9967

== ENCOUNTER → 2023-05-04 23:16 | Outpatient (BNV) | payer MEDICARE, SELFPAY | PROVIDERS: Emergency Provider Student in an Organized Health Care Education/Training Program; PCP Internal Medicine; Visit Provider Student in an Organized Health Care Education/Training Program | DX: R33.9 Retention of urine, unspecified (principal); K92.2 Gastrointestinal hemorrhage, unspecified | CPT/HCPCS: 99223; 99232; 99238; 99499 ==

== ENCOUNTER → 2023-05-05 02:51 | Outpatient (BNV) | payer MEDICARE, SELFPAY | PROVIDERS: Admitting Provider Student in an Organized Health Care Education/Training Program; Emergency Provider Student in an Organized Health Care Education/Training Program; PCP Internal Medicine; Visit Provider Internal Medicine | DX: K92.2 Gastrointestinal hemorrhage, unspecified (principal); K64.8 Other hemorrhoids | CPT/HCPCS: 43239 ==

== ENCOUNTER → 2023-05-05 02:51 | Outpatient (BNV) | payer MEDICARE, SELFPAY | PROVIDERS: Admitting Provider Student in an Organized Health Care Education/Training Program; Emergency Provider Student in an Organized Health Care Education/Training Program; PCP Internal Medicine; Visit Provider Internal Medicine | DX: K92.2 Gastrointestinal hemorrhage, unspecified (principal); K57.30 Diverticulosis of large intestine without perforation or abscess without bleeding | CPT/HCPCS: 99499 ==

== ENCOUNTER → 2023-05-05 02:51 | Outpatient (BNV) | payer MEDICARE, SELFPAY | PROVIDERS: Admitting Provider Student in an Organized Health Care Education/Training Program; Emergency Provider Student in an Organized Health Care Education/Training Program; PCP Internal Medicine; Visit Provider Urology | DX: R33.9 Retention of urine, unspecified (principal) | CPT/HCPCS: 99222 ==

== ENCOUNTER 2023-07-07 15:01 | Outpatient (AMB) | payer MEDICARE, SELFPAY ==
--- NOTE | 2023-07-07 15:17 | MHC.OFFVIS ---
Intake Visit Reasons: Acute Retention([facility]) Intake Note: Patient is Present for Follow Up Urology Medication: Tamsulosin Antibiotic Allergies: Sulfa Blood Thinners: None PVR: 65 Allergies Sulfa (Sulfonamide Antibiotics) [SULFA (SULFONAMIDE ANTIBIOTICS)] Allergy (Intermediate, Verified 07/07/23 15:22) HIVES lisinopril [LISINOPRIL] Adverse Reaction (Unknown, Verified 07/07/23 15:22) COUGH ENVIROMENTAL Allergy (Unknown, Uncoded 07/07/23 15:22) UNKNOWN HPI Comments Details: Eligio is a pleasant male. He is a patient of Dr. Angulo. He is seen for the following urologic conditions - urinary retention PVR 65 cc Responding well to tamsulosin Lower urinary tract symptoms Episode of urinary retention in hospital after colonoscopy Background diabetes on metformin, Trulicity [facility] Medical History Gastroesophageal reflux disease Essential hypertension Non-insulin dependent type 2 diabetes mellitus Mixed hyperlipidemia Peripheral neuropathy Social History Household Members: Spouse Household Members Other:: [id number] Housing: Apartment Do you presently have visiting nurse or other home services: No Alcohol intake: current Alcohol intake frequency: holidays/special occasions only Patient Tobacco Use Status: Never used Tobacco service: No Review of Systems Const Denies chills and Denies fever(s) Card Reports no additional complaints and Denies syncope Resp Denies cough GI Denies abdominal pain and Denies heartburn Reports as per HPI and Denies change in libido Neuro Denies syncope Psych Denies change in libido Endo Denies change in libido Physical Exam Const General: cooperative, healthy appearing, comfortable and no acute distress Orientation/consciousness: patient oriented x3 HEENT Face and sinus: Yes normal facial exam Mouth: moist mucous membranes Neck Neck: Yes normal visual inspection, Yes full ROM and Yes trachea midline Chest Chest palpation & inspection: normal inspection of the chest Resp Effort & Inspection: normal respiratory effort, able to speak in complete sentences and no respiratory distress GI Inspection: Yes normal to inspection Back/Spine/Pelvis Cervical Spine: normal cervical lordosis Thoracic/Lumbar Spine: thoracic and lumbar spine normal to inspection Skin General skin exam: no rashes or lesions noted Neuro General: patient oriented x3, gait normal, tone normal and moves all extremities Extrem General: Yes normal to inspection and Yes capillary refill normal Office Procedures Post Void Residual Post Residual Void Post Void Residual (PVR): 65 [id number] Void Residual by ultrasound Assessment & Plan Assessment & Plan (1) Bladder outlet obstruction: Code(s): N32.0 - Bladder-neck obstruction Category: Medical (2) Urinary retention with incomplete bladder emptying: Code(s): R33.9 - Retention of urine, unspecified Category: Medical Plan Continue tamsulosin Six-month follow-up PVR Orders: Orders AMB Post Void Residual by ultrasound Today R33.9 - Retention of urine, unspecified Medications: Changed From tamsulosin 0.4 mg PO BEDTIME 90 caps 0RF To tamsulosin 0.4 mg PO BEDTIME 90 days 90 caps 1RF Patient Instructions: Imaging studies, laboratory and physical exam results were discussed and reviewed in detail. No major barriers to patient understanding were identified. An opportunity to ask questions regarding the treatment plan was provided. All questions were answered. The patient expressed understanding and agreement with the above treatment plan. The patient is aware they should contact our office by phone for worsening of their current condition or the appearance of new urologic symptoms. Compliance is encouraged with any medications and followup testing that is ordered. It is a privilege to participate in the urologic care of your patient. If you have any questions or concerns regarding treatment for the above conditions, or other urologic issues, please do not hesitate to contact me. The office telephone contact is [phone]. This note is constructed using voice recognition software. While every effort has been made to ensure accuracy director medicaid errors may have been included. Yours sincerely, Dr Kenyon Hannah MD, [facility] - Urology Providers of Expert, Compassionate Care for the Genitourinary System Coding Level of Care Code Est Pt Level 3 (28839) Diagnoses Bladder outlet obstruction N32.0 Urinary retention with incomplete bladder emptying R33.9 CPT Codes Post Residual Void - PVR CPT Code: 94831-Yqwa Void Residual by ultrasound ([id number])
== END 2023-07-07 15:35 | disposition home or self-care (01) ==
PROVIDERS: PCP Internal Medicine; Visit Provider Urology
DX: N32.0 Bladder-neck obstruction (principal); R33.9 Retention of urine, unspecified
CPT/HCPCS: 99213

== ENCOUNTER → 2023-07-07 15:01 | Outpatient (BNVA) | payer MEDICARE, SELFPAY | PROVIDERS: PCP Internal Medicine; Visit Provider Urology | DX: N32.0 Bladder-neck obstruction (principal); R33.9 Retention of urine, unspecified | CPT/HCPCS: 51798; 99212 ==

== ENCOUNTER 2024-07-27 21:01 | Emergency (ER) | payer MEDICARE, SELFPAY ==
--- NOTE | ~2024-07-27 | XR_ITS ---
CLINICAL HISTORY: Shortness of breath, cough, rule out pneumonia 1 view chest x-ray Comparison: None Findings: Mild left lower lobe atelectasis. No significant pleural effusion or pneumothorax. Normal size heart. No acute fracture. IMPRESSION: Mild left lower lobe atelectasis. This document has been electronically signed by: Cesario Oquendo MD on 07/27/2024 22:07:32
[2024-07-27 21:06] VITALS: BP 145/79; BP 150/78; PULSE 103; RESP 20; TEMP 36.9; O2SAT 92; O2SAT 95; BMI 28.3
--- NOTE | 2024-07-27 21:17 | ED_ITS ---
HPI - SOB/Dyspnea General Chief Complaint: Dyspnea Stated Complaint: diff breathing, cough x6 months Time Seen by Provider: 07/27/24 21:02 Source: patient and EMS Mode of arrival: EMS Limitations: no limitations History of Present Illness ED Provider: Dr. Vipin Hawkins HPI Narrative: 69-year-old male with a history of diabetes, asthma, UTI, BPH who presents emergency department for evaluation of shortness of breath, cough, chills, rhinorrhea, sore throat. The patient states that he was diagnosed with asthma in February of 2024 and since that time he has been using albuterol inhalers. He states that his provider tried to put him on a more expensive inhaler but he was unable to afford it. He also states he has been using an old inhaler since he was not able to get a refill for a new inhaler. For the past 2 days, he has had a cough which is productive of clear, thick sputum with occasional yellow sputum but no blood. He has had to use his inhaler more frequently and since 14:00 hours his inhaler was not helping with the shortness of breath. Prior to coming to the emergency department, he had increased shortness of breath so called an ambulance and he was brought to emergency department. The paramedics stated that the patient's respiratory rate was high and he had diffuse wheezing. The patient was treated with DuoNeb in route. Patient states he did get some improvement with this treatment but still is wheezing. Related Data Home Medications ?Medication ?Instructions ?Recorded ?Confirmed albuterol sulfate 90 mcg/actuation 2 puff inhalation Q4H PRN wheezing 05/05/23 05/05/23 aerosol inhaler amitriptyline 50 mg tablet 100 mg PO BEDTIME 05/05/23 05/05/23 atenolol 50 mg tablet 50 mg PO BEDTIME 05/05/23 05/05/23 dulaglutide 1.5 mg/0.5 mL 1.5 mg subcut TU@1000 05/05/23 05/05/23 subcutaneous [facility] fluticasone propionate 50 2 spray intranasal DAILY PRN 05/05/23 05/05/23 mcg/actuation nasal SEASONAL ALLERGIES spray,suspension metformin 500 mg tablet,extended 500 mg PO BEDTIME 05/05/23 05/05/23 release 24 hr omeprazole 40 mg capsule,delayed 40 mg PO DAILY@1630 05/05/23 05/05/23 release simvastatin 40 mg tablet 40 mg PO BEDTIME 05/05/23 05/05/23 Previous Rx's ?Medication ?Instructions ?Recorded tamsulosin 0.4 mg capsule 0.4 mg PO BEDTIME 90 days #90 caps 07/07/23 albuterol sulfate 90 mcg/actuation 2 puff inhalation Q4-6H PRN 07/28/24 aerosol inhaler (Ventolin HFA) shortness of breath or wheezing #8.5 grams azithromycin 250 mg tablet See Rx Instructions PO .COMPLEX #6 07/28/24 (Zithromax Z-Jt) tabs fluticasone propionate 220 1 puff inhalation BID #12 grams 07/28/24 mcg/actuation HFA aerosol inhaler prednisone 20 mg tablet 40 mg (2 x 20 mg) PO DAILY 5 days 07/28/24 #10 tabs Allergies Allergy/AdvReac Type Severity Reaction Status Date / Time Sulfa (Sulfonamide Allergy Intermediate HIVES Verified 07/27/24 21:09 Antibiotics) [SULFA (SULFONAMIDE ANTIBIOTICS)] lisinopril [LISINOPRIL] AdvReac Unknown COUGH Verified 07/27/24 21:09 ENVIROMENTAL Allergy Unknown UNKNOWN Uncoded 07/27/24 21:09 Review of Systems 2 Review of Systems: Yes all other systems are reviewed and are negative [facility] Past Medical History [facility] Narrative: Social history: The patient is . He denies tobacco use. He occasionally drinks alcohol. He denies drug use. Medical History Gastroesophageal reflux disease Essential hypertension Non-insulin dependent type 2 diabetes mellitus Mixed hyperlipidemia Peripheral neuropathy Social History Social History Household Members: Spouse Household Members Other:: [id number] Housing: Apartment Do you presently have visiting nurse or other home services: No Alcohol intake: current Alcohol intake frequency: holidays/special occasions only Patient Tobacco Use Status: Never used Tobacco Smoked in Last 30 Days: No Use of substances other than those prescribed or required for medical reasons: No Advance Directives: No Advance Directives Information Provided: Yes Do you have a plan to hurt others: No Plan service: No Physical Exam 2 Vital Signs: Vital Signs: Last Vital Signs Temp 97.7 F 07/27/24 23:44 Pulse 105 H 07/27/24 23:44 Resp 16 07/27/24 23:44 BP 114/59 L 07/27/24 23:44 Pulse Ox 95 07/27/24 23:44 O2 Del Method Room Air 07/27/24 23:44 BMI result Body Mass Index 28.3 Vital signs revealed elevated heart rate of 103, elevated blood pressure of 145/79 O2 saturation was normal at 95% on room air. Exam: General: Awake, alert in no distress, appears tachypneic Head: Normocephalic, atraumatic EENT: PERRL, Lids normal, sclera normal, conjunctiva normal, nose normal , ears normal, throat without erythema or exudates Neck: Supple, no adenopathy Lung: breath sounds symmetric, diffuse wheezing worse at end expiration, no rales, no rhonchi Chest: symmetric movement, nontender Heart: regular rate and rhythm, normal S1, S2 no murmurs or rubs Abdomen: soft, non-tender, nondistended, normal bowel sounds Back: no vertebral tenderness, no CVAT Extremities: no deformities, moves all extremities symmetrically Neuro: Awake, alert, oriented, normal speech, moves all extremities symmetrically Psych: Pleasant, cooperative Medications Administered Discontinued Medications Generic Name Dose Route Start Last Admin Trade Name Freq PRN Reason Stop Dose Admin Albuterol Sulfate 7.5 mg/ 10 mg 07/27/24 21:39 07/27/24 21:45 Albuterol Sulfate 2.5 mg INHALE 07/27/24 21:40 10 mg ONCE ONE Administration Methylprednisolone Sodium Succinate 125 mg 07/27/24 21:21 07/27/24 21:27 Methylprednisolone Sod Succ 125 Mg/2 Ml Vial IVPUSH 07/27/24 21:22 125 mg ONCE ONE Administration Medical Decision Making Medical Decision Making MDM Narrative: 69-year-old male with a history of diabetes, asthma, UTI, BPH who presents emergency department for evaluation of shortness of breath, cough, chills, rhinorrhea, sore throat. The patient states that he was diagnosed with asthma in February of 2024 and since that time he has been using albuterol inhalers. He states that his provider tried to put him on a more expensive inhaler but he was unable to afford it. He also states he has been using an old inhaler since he was not able to get a refill for a new inhaler. For the past 2 days, he has had a cough which is productive of clear, thick sputum with occasional yellow sputum but no blood. He has had to use his inhaler more frequently and since 14:00 hours his inhaler was not helping with the shortness of breath. Prior to coming to the emergency department, he had increased shortness of breath so called an ambulance and he was brought to emergency department. The paramedics stated that the patient's respiratory rate was high and he had diffuse wheezing. The patient was treated with DuoNeb in route. Patient states he did get some improvement with this treatment but still is wheezing. Vital signs revealed an elevated blood pressure otherwise unremarkable. Lung exam revealed diffuse wheezing worse with an expiration. Differential diagnosis: ?Includes but is not limited to pneumonia, bronchitis, asthma exacerbation, anemia, electrolyte abnormalities Course: 22:54 My independent interpretation patient's laboratory evaluation is as follows: CBC was normal. CMP was normal. Lactic acid is elevated 2.6 but this is secondary to the albuterol treatment that the patient received in route to the hospital. Troponin was elevated 66.2. COVID-19, influenza and RSV tests were negative. VBG was normal. Given the elevated troponin and I did order a repeat 2 hour at Patient's chest x-ray revealed no acute infiltrates. 00:43 The patient's repeat troponin was 58.6 which is not significantly changed from the 1st troponin suggesting the patient did not have myocardial infarction or injury is the cause of his cough/shortness of breath. The patient was treated with albuterol 10 mg nebulized with improvement of his shortness of breath but he still has a cough. Repeat lactic acid was elevated 4.6 which was caused by high dose nebulized albuterol. The patient's symptoms are consistent with an asthma exacerbation and bronchitis. Patient was discharged home with prescriptions for prednisone 40 mg once a day, Zithromax Z-Jt and fluticasone inhaler. Admission/Observation Consideration of admission/observation: Escalation of care including admission/observation considered (Yes) Lab Data MDM Lab Attestation statement: I reviewed the patient's lab results. 07/27/24 21:35 07/27/24 21:35 Labs: Lab Results 07/27/24 07/27/2425 Range/Units 21:35 21:43 23:44 WBC 10.3 (4.8-10.8) X10*3/uL RBC 5.08 (4.60-5.80) X10*6/uL Hgb 14.7 (14.0-18.0) g/dl Hct 42.7 (42.0-52.0) % MCV 84.1 (80.0-98.0) fL MCH 28.9 (27.0-33.0) pg MCHC 34.4 (31.0-36.0) g/dl RDW 12.3 (11.0-16.0) % Plt Count 168 (160-400) X10*3/uL MPV 9.6 (9.4-12.4) fL Immature Gran % (Auto) 0.3 (0.0-0.4) % Neut % (Auto) 60.9 (45-73) % Lymph % (Auto) 24.3 (20-40) % Polk % (Auto) 7.2 (2-11) % Eos % (Auto) 6.6 H (0-4) % Baso % (Auto) 0.7 (0-2) % Lymph # (Auto) 2.5 (1.2-4.9) X10*3/uL Polk # (Auto) 0.7 (0.1-1.2) X10*3/uL Eos # (Auto) 0.7 H (0.0-0.4) X10*3/uL Baso # (Auto) 0.1 (0.0-0.2) X10*3/uL Abs Immat Gran (auto) 0.03 (0.00-0.03) X10*3/uL Absolute Neuts (auto) 6.3 (2.0-8.3) x10*3/uL Absolute Nucleated RBC 0.000 (0.0-0.012) X10*3/uL Nucleated RBC % (auto) 0.0 (0.0-0.2) /100WBC VBG pH 7.42 (7.32-7.43) VBG pCO2 34 mmHg VBG pO2 52 mmHg VBG HCO3 22 (22-26) mmol/L VBG O2 Saturation 81.0 % VBG Base Excess -1.0 mmol/L Sodium 139 (135-145) mmol/L Potassium 4.4 (3.3-5.1) mmol/L Chloride 106 (96-108) mmol/L Carbon Dioxide 23 (22-29) mmol/L Anion Gap 14 (12-20) BUN 21 H (9-16) mg/dL Creatinine 1.37 (0.5-1.4) mg/dL Estim Creat Clear Calc 53.1 Estimated GFR 51 Random Glucose 152 H (60-115) mg/dL Lactic Acid 2.6 H* (0.5-2.0) mmol/L Lactic Acid F/U @ 2Hr 4.1 H* (0.5-2.0) mmol/L Calcium 9.5 D (8.4-10.2) mg/dL Magnesium 1.8 (1.6-2.6) mg/dL Total Bilirubin 0.4 (0.0-1.0) mg/dL AST 28 (5-37) U/L ALT 34 (0-40) U/L Alkaline Phosphatase 43 (39-117) U/L Troponin I High Sens 66.4 H 58.6 H (<3.5-35.0) ng/L B-Natriuretic Peptide 19 (<100) pg/mL Total Protein 7.1 (6.5-8.0) g/dL Albumin 4.4 (3.5-5.0) g/dL Lipase 27 (8-78) U/L Influenza Type A (PCR) NEGATIVE (Negative) Influenza Type B (PCR) NEGATIVE (Negative) RSV RNA Qual (PCR) NEGATIVE (Negative) SARS-CoV-2 RNA (RT-PCR) NEGATIVE (Negative) Independent Interpretation I performed an independent interpretation of an: EKG Interpretation: My interpretation patient's 12 EKG done on 07/27/2024 at 22:54 hours is as follows: Sinus tachycardia with a rate of 109, normal [place] interval, QRS duration QTC interval, no ST segment elevation, no ST segment depression, no significant T-wave abnormalities, Q-wave in lead 3, occasional PVC, no old EKG for comparison. Radiology Impression Discussion of test interpretation with radiology: I have reviewed the radiologist's reading. Radiologist Impression: 1 view chest x-ray Comparison: None Findings: Mild left lower lobe atelectasis. No significant pleural effusion or pneumothorax. Normal size heart. No acute fracture. IMPRESSION: Mild left lower lobe atelectasis. This document has been electronically signed by: Cesario Oquendo MD on 07/27/2024 22:07:32 Dictated By: Cesario Oquendo MD Independent Historian Clinical information obtained from an independent historian. History obtained from or confirmed by: Spouse Prescription Management I considered prescription management with: Antibiotic (Zithromax) and Other (Anti-inflammatory steroids: Prednisone; steroid inhaler: Flovent) Chronic Conditions Patient?s care impacted by: Diabetes and Other (Asthma) Discharge Plan Discharge Clinical Impression: Asthma exacerbation, Bronchitis, Elevated troponin Patient Disposition: Home, Self-Care Instructions: Asthma (ED), Acute Bronchitis (ED) Additional Instructions: Your blood work was unremarkable except for an elevated high sensitivity troponin I. In min normal is less than 35 in years was 66.2. The 2 hour repeat was 58.6 which was not a significant change and suggesting that this elevated troponin was not caused by heart attack or heart damage. The rest of your blood work was unremarkable. Your EKG was normal. Your chest x-ray did not reveal any evidence for pneumonia. At this time I believe that your shortness of breath is due to an asthma exacerbation in you may have a large inflammatory component which was making you more short of breath and making the albuterol less effective. Take prednisone 20 mg pills, 3 pills once a day for 5 days. While you ?are taking prednisone, do not take any NSAIDs (Motrin, Advil, ibuprofen, Aleve, naproxen). Use the albuterol inhaler with the spacer, 2 puffs every 4-6 hours as needed for shortness of breath and wheezing. Take Zithromax (azithromycin) Z-Jt as prescribed. Day 1 take 2 pills, each day after that take 1 pill for total of 5 days. This medication states in your system for 7-10 days and continues to work despite only taking it for 5 days. Follow-up with your doctor in 2 days. Please return to the emergency department if your symptoms get worse or if you develop any symptoms that are concerning to you. Prescriptions: New prednisone 20 mg tablet 40 mg PO DAILY 5 Days Qty: 10 0RF albuterol sulfate [Ventolin HFA] 90 mcg/actuation HFA aerosol inhaler 2 puff inhalation Q4-6H PRN (Reason: shortness of breath or wheezing) Qty: 8.5 3RF fluticasone propionate 220 mcg/actuation HFA aerosol inhaler 1 puff inhalation BID Qty: 12 3RF azithromycin [Zithromax Z-Jt] 250 mg tablet See Rx Instructions .ROUTE .COMPLEX Qty: 6 0RF Rx Instructions: take 500 mg today (day 1), then 250 mg for 4 days (days 2-5) No Action metformin 500 mg Tablet Extended Release 24 Hr 500 mg PO BEDTIME simvastatin 40 mg Tablet 40 mg PO BEDTIME amitriptyline 50 mg Tablet 100 mg PO BEDTIME atenolol 50 mg Tablet 50 mg PO BEDTIME omeprazole 40 mg Capsule,Delayed Release(Dr/Ec) 40 mg PO DAILY@1630 albuterol sulfate 90 mcg/actuation HFA aerosol inhaler 2 puff inhalation Q4H PRN (Reason: wheezing) fluticasone propionate 50 mcg/actuation spray,suspension 2 spray intranasal DAILY PRN (Reason: SEASONAL ALLERGIES) Trulicity 1.5 mg/0.5 mL Pen Injector 1.5 mg SUBCUT TU@1000 tamsulosin 0.4 mg capsule 0.4 mg PO BEDTIME 90 Days Qty: 90 1RF Print Language: Niuean
[2024-07-27] MEDS: methylPREDNISolone Sod Succ 125 MG/2 ML VIAL IVPUSH (21:27)
--- NOTE | 2024-07-27 21:35 | PC.NURSE ---
pt biba from home, a&ox4, respirations even and unlabored. pt reports x6 months of cough and intermittent shortness of breath that has worsened. pt reports using albuterol with no relief. pt noted to have bilateral expiratory wheezing. 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 pt reports some relief. 18g placed in left ac by ems. pt medicated per may
[2024-07-27 21:42] LABS: MANUAL DIFF FLAG NO
[2024-07-27 21:44] LABS: Basophils Absolute Auto 0.1 X10*3/uL (0.0-0.2); Basophils Percent Auto 0.7 % (0-2); Eosinophils Absolute Auto 0.7 X10*3/uL (0.0-0.4); Eosinophils Percent Auto 6.6 % (0-4); Hematocrit 42.7 % (42.0-52.0); Hemoglobin 14.7 g/dl (14.0-18.0); Imm Gran Abs Auto 0.03 X10*3/uL (0.00-0.03); Imm Gran Pct Auto 0.3 % (0.0-0.4); Lymphocytes Absolute Auto 2.5 X10*3/uL (1.2-4.9); Lymphocytes Percent Auto 24.3 % (20-40); Mean Corpuscular HGB Conc 34.4 g/dl (31.0-36.0); Mean Corpuscular Hemoglobin 28.9 pg (27.0-33.0); Mean Corpuscular Volume 84.1 fL (80.0-98.0); Mean Platelet Volume 9.6 fL (9.4-12.4); Monocytes Absolute Auto 0.7 X10*3/uL (0.1-1.2); Monocytes Percent Auto 7.2 % (2-11); Neutrophils Absolute Auto 6.3 x10*3/uL (2.0-8.3); Neutrophils Percent Auto 60.9 % (45-73); Platelet Count 168 X10*3/uL (160-400); Red Blood Count 5.08 X10*6/uL (4.60-5.80); Red Cell Distribution Width 12.3 % (11.0-16.0); White Blood Count 10.3 X10*3/uL (4.8-10.8)
[2024-07-27] MEDS: Albuterol Sulfate 7.5 MG, Albuterol Sulfate (0.083%) 2.5 MG 10 MG INHALE (21:45)
[2024-07-27 21:46] VITALS: BP 139/82; PULSE 100; PULSE 96; RESP 14; RESP 18; O2SAT 95
[2024-07-27 21:54] LABS: VBG HCO3 22 mmol/L (22-26); VBG pCO2 34 mmHg; VBG pH 7.42 (7.32-7.43); VBG pO2 52 mmHg
[2024-07-27 21:56] LABS: Venous Blood Gas Refer to POC result
[2024-07-27 22:04] LABS: Albumin Level 4.4 g/dL (3.5-5.0); Alkaline Phosphatase 43 U/L (39-117); Anion Gap 14 (12-20); Aspartate Amino Transferase 28 U/L (5-37); Bilirubin Total 0.4 mg/dL (0.0-1.0); Blood Urea Nitrogen 21 mg/dL (9-16); Calcium 9.5 mg/dL (8.4-10.2); Carbon Dioxide 23 mmol/L (22-29); Chloride 106 mmol/L (96-108); Creatinine Clr Calc Pharmacy 53.1; Estimated Glomerular Filt Rate 51; Glucose Random 152 mg/dL (60-115); Lipase 27 U/L (8-78); Magnesium 1.8 mg/dL (1.6-2.6); Potassium 4.4 mmol/L (3.3-5.1); Sodium 139 mmol/L (135-145); Total Protein 7.1 g/dL (6.5-8.0)
[2024-07-27 22:06] LABS: B Type Natriuretic Peptide 19 pg/mL (<100)
[2024-07-27 22:10] LABS: Troponin-I High Sensitivity 66.4 ng/L (<3.5-35.0)
[2024-07-27 22:11] LABS: Lactic Acid 2.6 mmol/L (0.5-2.0)
[2024-07-27 22:15] LABS: Alanine Aminotransferase 34 U/L (0-40)
[2024-07-27 22:23] LABS: Influenza A PCR NEGATIVE (Negative); Influenza B PCR NEGATIVE (Negative); Resp Syncy Virus RNA Qual PCR NEGATIVE (Negative); SARS COV2 PCR INHOUSE NEGATIVE (Negative)
--- NOTE | 2024-07-27 22:48 | ECG_ITS ---
Test Reason : CHEST PAIN Blood Pressure : */* mmHG Vent. Rate : 109 BPM Atrial Rate : 109 BPM P-R Int : 170 ms QRS Dur : 82 ms QT Int : 336 ms P-R-T Axes : 25 -11 7 degrees QTcB Int : 452 ms Sinus tachycardia with occasional Premature ventricular complexes Otherwise normal ECG No previous ECGs available Referred By: Vipin Hawkins Electronically Signed By: Ambrosio Buckley
[2024-07-27 23:40] LABS: Reflex Lactate? Lactic Acid Added
[2024-07-27 23:44] VITALS: BP 114/59; PULSE 105; RESP 16; TEMP 36.5; O2SAT 95
[2024-07-28 00:17] LABS: Troponin-I High Sensitivity 58.6 ng/L (<3.5-35.0)
[2024-07-28 00:22] LABS: ~Lactic Acid-LAB USE ONLY 4.1 mmol/L (0.5-2.0)
[2024-07-28 01:50] LABS: Reflex Lactate? 2 Y
== END 2024-07-28 01:04 | disposition home or self-care (01) ==
PROVIDERS: Emergency Provider Emergency Medicine Emergency Medical Services; PCP Internal Medicine
DX: J40 Bronchitis, not specified as acute or chronic (principal); R06.02 Shortness of breath; R79.89 Other specified abnormal findings of blood chemistry; R07.89 Other chest pain; R05.9 Cough, unspecified; J34.89 Other specified disorders of nose and nasal sinuses; Z03.818 Encounter for observation for suspected exposure to other biological agents ruled out; Z79.899 Other long term (current) drug therapy
CPT/HCPCS: 0241U; 36415; 71045; 80053; 82803; 83605; 83690; 83735; 83880; 84484; 85025; 87040; 93005; 94640; 96374; 99284; 99285; J2919

== ENCOUNTER → 2024-07-27 21:22 | Outpatient (BNV) | payer MEDICARE, SELFPAY | PROVIDERS: Emergency Provider Emergency Medicine Emergency Medical Services; PCP Internal Medicine; Visit Provider Radiology Diagnostic Radiology | DX: R06.02 Shortness of breath (principal); R05.9 Cough, unspecified | CPT/HCPCS: 71045 ==

== ENCOUNTER → 2024-07-27 22:48 | Outpatient (BNV) | payer MEDICARE, SELFPAY | PROVIDERS: Emergency Provider Emergency Medicine Emergency Medical Services; PCP Internal Medicine; Visit Provider Internal Medicine Cardiovascular Disease | DX: I49.3 Ventricular premature depolarization (principal); R00.0 Tachycardia, unspecified | CPT/HCPCS: 93010 ==

== ENCOUNTER 2025-01-18 06:18 | Emergency (ER) | payer MEDICARE, SELFPAY ==
--- OUTSIDE RECORDS SUMMARY | 2023-09-18 10:30 | XMS_ITS ---
Author Organization [facility] Address [address] [address] Care Team Providers Care Manager Infusion Name Role Phone Aiden Angulo Primary Care Provider ABDIRIZAK Ascencio Unavailable [phone] REASON FOR VISIT 4 month follow up Encounters Encounter Location Date Provider Diagnosis [facility] [address] [address] 09/18/2023 ABDIRIZAK BENNETT Plan Of Treatment Next Appt Details Provider Name:ABDIRIZAK BENNETT, 01/22/2025 03:15:00 PM, [address] [facility] [address], [place], [address], Progress Notes * Eligio SMALLS MDOB:[birth year] (70 yo M)Acc No.[id number]:09/18/2023 Progress Note Patient: Eligio WALKER Provider: Rosalind Bennett DPM :1955 A ge:68 Y S ex:Male Date:09/18/2023 Address:[address] [id number] Pcp:Aiden Angulo Subjective: * Chief Complaints: * 1 . 4 month follow up. * Medical History: Objective: * Vitals: Assessment: Plan: * Treatment: * Billing Information: * Visit Code: * Procedure Codes: * Electronic signature of CLOVER BENNETT D.P.M on 01/18/2025 at 07:50 AM EST Sign off status: Pending * Provider: Rosalind Bennett DPM Date: 0 09/18/2023 Generated for Kyra samano/Eliseo/Trevor on: 1 03/20/2024 07:50 AM EST
--- OUTSIDE RECORDS SUMMARY | 2024-01-19 09:30 | XMS_ITS ---
Author Organization [facility] Address [address] [address] Care Team Providers Care Inspector Final Assembly Conveyor Line Name Role Phone Aiden Angulo Primary Care Provider ABDIRIZAK Ascencio Unavailable [phone] REASON FOR VISIT 4 month follow up Encounters Encounter Location Date Provider Diagnosis [facility] [address] [address] 01/19/2024 ABDIRIZAK BENNETT Plan Of Treatment Next Appt Details Provider Name:ABDIRIZAK BENNETT, 01/22/2025 03:15:00 PM, [address] [facility] [address], [place], [address], Progress Notes * Eligio SMALLS MDOB:[birth year] (70 yo M)Acc No.[id number]:01/19/2024 Progress Note Patient: Eligio WALEKR Provider: Rosalind Bennett DPM :1955 A ge:69 Y S ex:Male Date:01/19/2024 Address:[address] [id number] Pcp:Aiden Angulo Subjective: * Chief Complaints: * 1 . 4 month follow up. * Medical History: Objective: * Vitals: Assessment: Plan: * Treatment: * Billing Information: * Visit Code: * Procedure Codes: * Electronic signature of CLOVER BENNETT D.P.M on 01/18/2025 at 07:50 AM EST Sign off status: Pending * Provider: Rosalind Bennett DPM Date: 03/20/2023 Generated for Kyra samano/Eliseo/Kimitting on: 03/20/2024 07:50 AM EST
--- OUTSIDE RECORDS SUMMARY | 2024-11-25 09:15 | XMS_ITS ---
Author Organization [facility] Address [address] [address] Care Team Providers Care Digital Media Planner Name Role Phone Aiden Angulo Primary Care Provider UnavailABDIRIZAK Cooley Unavailable [phone] REASON FOR VISIT 3 month f/u Encounters Encounter Location Date Provider Diagnosis [facility] [address] [facility] [address] [place] [address] 11/25/2024 ABDIRIZAK BENNETT Plan Of Treatment Next Appt Details Provider Name:ABDIRIZAK BENNETT, 01/22/2025 03:15:00 PM, [address] [facility] [address], [place], [address], Progress Notes * Eligio SMALLS MDOB:[birth year] (70 yo M)Acc No.[id number]:11/25/2024 Progress Note Patient: Eligio WALKER Provider: Rosalind Bennett DPM :1955 A ge:69 Y S ex:Male Date:11/25/2024 Address:[address] [id number] Pcp:Aiden Angulo Subjective: * Chief Complaints: * 1 . 3 month f/u. * Medical History: Objective: * Vitals: Assessment: Plan: * Treatment: * Billing Information: * Visit Code: * Procedure Codes: * Electronic signature of CLOVER BENNETT D.P.M on 01/18/2025 at 07:50 AM EST Sign off status: Pending * Provider: Rosalind Bennett DPM Date: 0 11/25/2024 Generated for Kyra samano/Eliseo/Trevor on: 1 03/20/2024 07:50 AM EST
--- OUTSIDE RECORDS SUMMARY | 2025-01-17 09:30 | XMS_ITS ---
Author Organization [facility] Address [address] [facility] [address] [place] [address] Care Team Providers Care Weigher Operator Name Role Phone Aiden Angulo Primary Care Provider UnavailABDIRIZAK Cooley Unavailable [phone] REASON FOR VISIT 3 month f/u Encounters Encounter Location Date Provider Diagnosis [facility] [address] [facility] [address] [place] [address] 01/17/2025 ABDIRIZAK BENNETT Plan Of Treatment Next Appt Details Provider Name:ABDIRIZAK BENNETT, 01/22/2025 03:15:00 PM, [address] [facility] [address], [place], [address], Progress Notes * Eligio SMALLS MDOB:[birth year] (70 yo M)Acc No.[id number]:01/17/2025 Progress Note Patient: Eligio WALKER Provider: Rosalind Bennett DPM :1955 A ge:70 Y S ex:Male Date:01/17/2025 Address:[address] [id number] Pcp:Aiden Angulo Subjective: * Chief Complaints: * 1 . 3 month f/u. * Medical History: Objective: * Vitals: Assessment: Plan: * Treatment: * Billing Information: * Visit Code: * Procedure Codes: * Electronic signature of CLOVER BENNETT D.P.M on 01/18/2025 at 07:50 AM EST Sign off status: Pending * Provider: Rosalind Bennett DPM Date: 03/19/2024 Generated for Kyra samano/Eliseo/Trevor on: 03/20/2024 07:50 AM EST
[2025-01-18 06:21] VITALS: BP 187/106; PULSE 119; O2SAT 94
[2025-01-18 06:24] VITALS: BMI 28.3
[2025-01-18 06:32] VITALS: BP 183/111; PULSE 117; RESP 22; TEMP 36.8; O2SAT 95
--- NOTE | 2025-01-18 06:33 | ED.MALEGU ---
HPI - Male Genitourinary General Chief complaint: Urogenital-Male Stated complaint: urinary retention Time Seen by Provider: 01/18/25 06:20 Source: patient Mode of arrival: EMS Limitations: no limitations History of Present Illness HPI Narrative: 70 years old the patient with a history of diabetes presented to the emergency department via ambulance with the inability to urinate he states that last time he went to the bathroom was yesterday afternoon now is complaining of abdominal pain Onset (ago): day(s) (1) Duration: constant Severity: severe Quality: aching Relieving factors: none Exacerbating factors: none Related Data Home Medications ?Medication ?Instructions ?Recorded ?Confirmed albuterol sulfate 90 mcg/actuation 2 puff inhalation Q4H PRN wheezing 05/05/23 05/05/23 aerosol inhaler amitriptyline 50 mg tablet 100 mg PO BEDTIME 05/05/23 05/05/23 atenolol 50 mg tablet 50 mg PO BEDTIME 05/05/23 05/05/23 dulaglutide 1.5 mg/0.5 mL 1.5 mg subcut TU@1000 05/05/23 05/05/23 subcutaneous pen injector (Trulicity) fluticasone propionate 50 2 spray intranasal DAILY PRN 05/05/23 05/05/23 mcg/actuation nasal SEASONAL ALLERGIES spray,suspension metformin 500 mg tablet,extended 500 mg PO BEDTIME 05/05/23 05/05/23 release 24 hr omeprazole 40 mg capsule,delayed 40 mg PO DAILY@1630 05/05/23 05/05/23 release simvastatin 40 mg tablet 40 mg PO BEDTIME 05/05/23 05/05/23 Previous Rx's ?Medication ?Instructions ?Recorded tamsulosin 0.4 mg capsule 0.4 mg PO BEDTIME 90 days #90 caps 07/07/23 albuterol sulfate 90 mcg/actuation 2 puff inhalation Q4-6H PRN 07/28/24 aerosol inhaler (Ventolin HFA) shortness of breath or wheezing #8.5 grams azithromycin 250 mg tablet See Rx Instructions PO .COMPLEX #6 07/28/24 (Zithromax Z-Jt) tabs fluticasone propionate 220 1 puff inhalation BID #12 grams 07/28/24 mcg/actuation HFA aerosol inhaler prednisone 20 mg tablet 40 mg (2 x 20 mg) PO DAILY 5 days 05/25/25 #10 tabs Allergies Allergy/AdvReac Type Severity Reaction Status Date / Time Sulfa (Sulfonamide Allergy Intermediate HIVES Verified 01/18/25 06:25 Antibiotics) (SULFA (SULFONAMIDE ANTIBIOTICS)) lisinopril (LISINOPRIL) AdvReac Unknown COUGH Verified 01/18/25 06:25 ENVIROMENTAL Allergy Unknown UNKNOWN Uncoded 07/27/24 21:09 Review of Systems Constitutional: Constitutional: Reports no additional constitutional complaints Cardiovascular: Cardiovascular: Reports no additional cardiovascular complaints Gastrointestinal: Gastrointestinal: Reports no additional gastrointestinal complaints [facility] Past Medical History Attestation statement: The following information was validated with the patient. [facility] Narrative: History of diabetes history of urinary retention, peripheral neuropathy essential hypertension. Medical History Diverticula of colon Gastroesophageal reflux disease Essential hypertension Non-insulin dependent type 2 diabetes mellitus Mixed hyperlipidemia Peripheral neuropathy Social History Social History Household Members: Spouse Household Members Other:: [id number] Housing: Apartment Do you presently have visiting nurse or other home services: No Alcohol intake: current Alcohol intake frequency: holidays/special occasions only Patient Tobacco Use Status: Never used Tobacco Smoked in Last 30 Days: No Use of substances other than those prescribed or required for medical reasons: No Advance Directives: Yes Advance Directives on File: Yes Advance Directives Date on File: 05/10/23 service: No Physical Exam Exam: Exam: On physical examination he appear in distress Vital Signs: Vital Signs: Last Vital Signs Temp 97.4 F 01/18/25 07:10 Pulse 107 H 01/18/25 07:10 Resp 18 01/18/25 07:10 BP 140/87 H 01/18/25 07:10 Pulse Ox 93 01/18/25 07:10 O2 Del Method Room Air 01/18/25 07:10 BMI result Body Mass Index 28.3 Const: General: cooperative Nutritional Appearance: average body habitus Orientation/consciousness: patient oriented x3 HEENT: Head: Yes normal to inspection Ears: hearing grossly normal bilaterally Face and sinus: Yes normal facial exam Throat: Yes posterior oropharynx normal Neck: Neck: Yes normal visual inspection Chest: Chest palpation & inspection: normal inspection of the chest Resp: Effort & Inspection: normal respiratory effort Cardio: Jugular venous distension: no JVD Rate: regular rate Rhythm: regular rhythm GI: Inspection: Yes normal to inspection Palpation (GI): Soft to palpation, not firm and nontender Auscultation: normal bowel sounds Skin: General skin exam: no rashes or lesions noted, elasticity normal and turgor normal Lesions: no lesions Rashes: no rashes Wounds: no wounds Neuro: General: patient oriented x3 Cranial nerves: Yes CN's II-XII intact bilaterally Course Reevaluation(s) Reevaluation #1: Catheter inserted by RN more than a 1000 cc of urine he is feeling better Time: 07:23 Reevaluation #2: Remained stable afebrile urine no infection we will discharge Time: 08:16 Medications Administered Discontinued Medications Generic Name Dose Route Start Last Admin Trade Name Freq PRN Reason Stop Dose Admin Lidocaine HCl 10 ml 01/18/25 06:42 01/18/25 06:46 Lidocaine Hcl 2 % Urojet 10 Ml Jel.Pf.Brayan TOPICAL 01/18/25 06:43 10 ml ONCE ONE Administration Tamsulosin HCl 0.4 mg 01/18/25 06:32 01/18/25 07:05 Tamsulosin Hcl 0.4 Mg Capsule PO 01/18/25 06:33 0.4 mg ONCE ONE Administration Medical Decision Making Medical Decision Making [facility] Narrative: Patient is here complaining of abdominal pain working diagnoses urinary retention we will insert catheter Differential Diagnosis Differential Diagnoses: The differential diagnosis associated with the presentation includes Urinary retention/ small-bowel obstruction/colitis/diverticulitis Admission/Observation Consideration of admission/observation: Escalation of care including admission/observation considered Lab Data [facility] Lab Attestation statement: I reviewed the patient's lab results. 01/18/25 06:57 01/18/25 06:57 Labs: Lab Results 01/18/25 01/18/25 Range/Units 06:54 06:57 WBC 10.6 (4.8-10.8) X10*3/uL RBC 5.00 (4.60-5.80) X10*6/uL Hgb 14.3 (14.0-18.0) g/dl Hct 41.9 L (42.0-52.0) % MCV 83.8 (80.0-98.0) fL MCH 28.6 (27.0-33.0) pg MCHC 34.1 (31.0-36.0) g/dl RDW 12.0 (11.0-16.0) % Plt Count 175 (160-400) X10*3/uL MPV 9.5 (9.4-12.4) fL Immature Gran % (Auto) 1.2 H (0.0-0.4) % Neut % (Auto) 67.4 (45-73) % Lymph % (Auto) 19.5 L (20-40) % [place] % (Auto) 7.1 (2-11) % Eos % (Auto) 4.0 (0-4) % Baso % (Auto) 0.8 (0-2) % Lymph # (Auto) 2.1 (1.2-4.9) X10*3/uL [place] # (Auto) 0.8 (0.1-1.2) X10*3/uL Eos # (Auto) 0.4 (0.0-0.4) X10*3/uL Baso # (Auto) 0.1 (0.0-0.2) X10*3/uL Abs Immat Gran (auto) 0.13 H (0.00-0.03) X10*3/uL Absolute Neuts (auto) 7.2 (2.0-8.3) x10*3/uL Absolute Nucleated RBC 0.000 (0.0-0.012) X10*3/uL Nucleated RBC % (auto) 0.0 (0.0-0.2) /100WBC Sodium 138 (135-145) mmol/L Potassium 4.1 (3.3-5.1) mmol/L Chloride 102 (96-108) mmol/L Carbon Dioxide 24 (22-29) mmol/L Anion Gap 16 (12-20) BUN 23 H (9-16) mg/dL Creatinine 1.38 (0.5-1.4) mg/dL Estim Creat Clear Calc 53.6 Estimated GFR 51 Random Glucose 182 H (60-115) mg/dL Calcium 10.4 H D (8.4-10.2) mg/dL Total Bilirubin 0.4 (0.0-1.0) mg/dL AST 28 (5-37) U/L ALT 43 H (0-40) U/L Alkaline Phosphatase 43 (39-117) U/L Total Protein 7.1 (6.5-8.0) g/dL Albumin 4.5 (3.5-5.0) g/dL Urine Color Yellow Urine Appearance Clear Urine pH 7.5 (5.0-9.0) Ur Specific Gray 1.015 (1.005-1.025) Urine Protein Negative (Neg-Trace) mg/dL Urine Glucose (UA) 250 H (Negative) mg/dL Urine Ketones Negative (Negative) mg/dL Urine Blood Small (1+) H (Negative) Urine Nitrite Negative (Negative) Ur Leukocyte Esterase Negative (Negative) Urine RBC 0-2 (0-2) /HPF Urine WBC 0-5 (0-5) /HPF Ur Squamous Epith Cells 0-2 (0-2) /HPF Urine Bacteria None Seen (None Seen) Hyaline Casts 0-2 (0-2) /LPF Chronic Conditions Patient?s care impacted by: Hypertension Discharge Plan Discharge Clinical Impression: Acute urinary retention Patient Disposition: Home, Self-Care Instructions: Urinary Retention in Men (ED), How to Change a Catheter Drainage Bag (DC) Additional Instructions: Follow-up with urology call and make an appointment, keep your catheter on Prescriptions: No Action metformin 500 mg Tablet Extended Release 24 Hr 500 mg PO BEDTIME simvastatin 40 mg Tablet 40 mg PO BEDTIME amitriptyline 50 mg Tablet 100 mg PO BEDTIME atenolol 50 mg Tablet 50 mg PO BEDTIME omeprazole 40 mg Capsule,Delayed Release(Dr/Ec) 40 mg PO DAILY@1630 albuterol sulfate 90 mcg/actuation HFA aerosol inhaler 2 puff inhalation Q4H PRN (Reason: wheezing) fluticasone propionate 50 mcg/actuation spray,suspension 2 spray intranasal DAILY PRN (Reason: SEASONAL ALLERGIES) Trulicity 1.5 mg/0.5 mL Pen Injector 1.5 mg SUBCUT TU@1000 prednisone 20 mg tablet 40 mg PO DAILY 5 Days Qty: 10 0RF albuterol sulfate [Ventolin HFA] 90 mcg/actuation HFA aerosol inhaler 2 puff inhalation Q4-6H PRN (Reason: shortness of breath or wheezing) Qty: 8.5 3RF fluticasone propionate 220 mcg/actuation HFA aerosol inhaler 1 puff inhalation BID Qty: 12 3RF azithromycin [Zithromax Z-Jt] 250 mg tablet See Rx Instructions .ROUTE .COMPLEX Qty: 6 0RF Rx Instructions: take 500 mg today (day 1), then 250 mg for 4 days (days 2-5) tamsulosin 0.4 mg capsule 0.4 mg PO BEDTIME 90 Days Qty: 90 1RF Referrals: Luis Bell MD [Physician, Urology] - 01/21/25 Print Language: Tuvaluan
[2025-01-18] MEDS: Lidocaine HCl 2 % Urojet 10 ML JEL.PF.APP TOPICAL (06:46)
[2025-01-18 07:10] VITALS: BP 140/87; PULSE 107; RESP 18; TEMP 36.3; O2SAT 93
--- NOTE | 2025-01-18 07:12 | PC.NURSE ---
this nurse took over pt care at 7am, patient a&ox3, rr equal/non labored, vss, pt had a humphrey cath placed right at the change of shift by night nurse- patient/draining clear yellow urine- initial output 1000 that this nurse drained. pt currently denying pain/discomfort, medicated per order, call doran within reach, plan of care ongoing
[2025-01-18 07:15] LABS: MANUAL DIFF FLAG NO
[2025-01-18 07:17] LABS: Appearance Urine Clear; Glucose Urine UA 250 mg/dL (Negative); PH 7.5 (5.0-9.0); Specific Gravity - Urine 1.015 (1.005-1.025); UMIC TRIGGER UACC YES
[2025-01-18 07:20] LABS: Hematocrit 41.9 % (42.0-52.0); Hemoglobin 14.3 g/dl (14.0-18.0); Imm Gran Abs Auto 0.13 X10*3/uL (0.00-0.03); Imm Gran Pct Auto 1.2 % (0.0-0.4); Lymphocytes Absolute Auto 2.1 X10*3/uL (1.2-4.9); Mean Corpuscular HGB Conc 34.1 g/dl (31.0-36.0); Mean Corpuscular Hemoglobin 28.6 pg (27.0-33.0); Mean Corpuscular Volume 83.8 fL (80.0-98.0); NRBC Abs Auto 0.000 X10*3/uL (0.0-0.012); NRBC Pct Auto 0.0 /100WBC (0.0-0.2); Platelet Count 175 X10*3/uL (160-400); Red Blood Count 5.00 X10*6/uL (4.60-5.80); White Blood Count 10.6 X10*3/uL (4.8-10.8)
[2025-01-18 07:31] LABS: Alanine Aminotransferase 43 U/L (0-40); Albumin Level 4.5 g/dL (3.5-5.0); Alkaline Phosphatase 43 U/L (39-117); Anion Gap 16 (12-20); Aspartate Amino Transferase 28 U/L (5-37); Blood Urea Nitrogen 23 mg/dL (9-16); Calcium 10.4 mg/dL (8.4-10.2); Carbon Dioxide 24 mmol/L (22-29); Chloride 102 mmol/L (96-108); Creatinine Clr Calc Pharmacy 53.6; Estimated Glomerular Filt Rate 51; Potassium 4.1 mmol/L (3.3-5.1); Sodium 138 mmol/L (135-145); Total Protein 7.1 g/dL (6.5-8.0)
--- OUTSIDE RECORDS SUMMARY | 2025-01-18 07:50 | XMS_ITS ---
Author Name [facility] Organization Unknown Care Team Organization Name Specialty Phone Email Start Date End Da te [facility] HÉCTOR ARAGON Primary Care 08/12/2022 [facility] Termed, PROVIDER Primary Care 01/11/202210/04
--- OUTSIDE RECORDS SUMMARY | 2025-01-18 07:50 | XMS_ITS | Clinical Summary ---
Demographics Address [address] [place] [address] Home Phone Mobile Phone Email Address Email Address Email Address Preferred Language en Marital Status Jehovah'S Witness Affiliation Unknown Race White Ethnic Group Not or Lati no Author Organization [address] [place] [address] Phone Support Name Relationship Address Phone Carlyn Smalls Spouse # [address] [place] [address], [place] [address] Care Team Providers Care Senior Commissions Analyst Name Role Phone Aiden Angulo MD Primary Care Provider [phone] Allergies Active Allergy Reactions Criticality Noted Date Comments Aspirin 09/15/2016 Interal bleeding Cecy 06/06/2023 Lisinopril Cough 12/16/2011 Sulfa (Sulfonamide Antibiotics) GI intolerance 07/04/2011 Medications amitriptyline (ELAVIL) 50 mg tablet Take 2 tablets (100 mg total) by mouth 1 (one) time each day. 90 DAYS 01/05/20 23 Active diclofenac (VOLTAREN) 1 % topical gel Apply 4 g topically 4 (four) times a day. 04/25/19 23 Active fluticasone propionate (FLONASE) 50 mcg/actuation nasal spray Administer 2 sprays into each nostril 1 (one) time each day. 02/17/20 23 Active metFORMIN XR (GLUCOPHAGE-XR ) 500 mg 24 hr tablet Take 1 tablet (500 mg total) by mouth 2 (two) times a day. 08/16/19 24 Active simvastatin (ZOCOR) 40 mg tablet Take 1 tablet (40 mg total) by mouth at bedtime. 90 tablet 1 04/23/19 25 Active dulaglutide (Trulicity) 1.5 mg/0.5 mL pen injector injectionIndic ations:Type 2 diabetes mellitus with other specified complication, without long-term current use of insulin ([facility] V24, [facility] V28) Inject 0.5 mL (1.5 mg total) under the skin 1 (one) time per week. 6 mL 3 06/12/19 25 Active albuterol HFA (PROAIR HFA ; PROVENTIL HFA ; VENTOLIN HFA) 90 mcg/actuation inhaler INHALE 2 PUFFS INTO THE LUNGS EVERY 4 HOURS NEEDED FOR COUGH OR WHEEZING. 8.5 each 06/01/19 25 Active fluticasone furoate (ARNUITY ELLIPTA) 100 mcg/actuation blister with device inhaler Inhale 1 puff by mouth 1 (one) time each day. 3 each 07/02/19 25 Active blood-glucose meter (Contour Next Gen Meter) miscIndication s:Type 2 diabetes mellitus with diabetic microalbuminur ia, with long-term current use of insulin ([facility] V24, [facility] V28) Used to test blood sugar 1 each 09/11/19 25 Active glucose blood test stripIndicatio ns:Type 2 diabetes mellitus with diabetic microalbuminur ia, with long-term current use of insulin ([facility] V24, [facility] V28) Used to test blood sugar three times a day 100 each 12 09/11/19 25 026 Active lancing device (lancing device with lancets)Indica tions:Type 2 diabetes mellitus with diabetic microalbuminur ia, with long-term current use of insulin ([facility] V24, [facility] V28) Used to test blood sugar three times a day 1 each 09/11/19 25 026 Active lancets (Microlet Lancet) lancetsIndicat ions:Type 2 diabetes mellitus with diabetic microalbuminur ia, with long-term current use of insulin ([facility] V24, [facility] V28) Used to test blood sugar three times 100 each 12 09/11/19 25 026 Active atenoloL (TENORMIN) 50 mg tablet TAKE 1 TABLET BY MOUTH 1 TIME EACH DAY. 90 tablet 1 12/03/19 25 Active tamsulosin (FLOMAX) 0.4 mg 24 hr capsule TAKE 1 CAPSULE BY MOUTH 30 MINS AFTER SAME MEAL EVERY DAY. 90 capsule 1 12/18/19 25 Active omeprazole (PriLOSEC) [address] capsule TAKE 1 CAPSULE BY MOUTH 1 TIME EACH DAY. 90 capsule 1 12/18/19 25 Active cyclobenzaprin e (FLEXERIL) 10 mg tablet TAKE 1 TABLET BY MOUTH 3 TIMES A DAY IF NEEDED FOR MUSCLE SPASMS. 90 tablet 1 01/02/20 25 Active cyclobenzaprin e (FLEXERIL) 10 mg tablet Take 1 tablet (10 mg total) by mouth 3 (three) times a day if needed for muscle spasms. 90 tablet 1 04/23/19 25 025 Discontinued Active Problems Problem Noted Date Diagnosed Date Elevated PSA 04/07/2021 Overview (12/05/2023): 04/2021: 06/09. Referred to urology. CKD (chronic kidney disease) stage 3, GFR 30-59 ml/min ([facility] V24, [facility] V28) 11/25/2019 Diabetes mellitus type 2 wit h neurological manifestations ([facility] V24, [facility] V28) 08/20/2015 Microalbuminuria 05/09/2014 Type II diabetes mellitus wi th renal manifestations ([facility] V24, [facility] V28) 05/09/2014 Onychomycosis 01/05/2014 SHASHANK (obstructive sleep apnea) 05/21/2012 Overview (12/05/2023): NOT TREATED (Nov 2019) PLMD (periodic limb movement disorder) 3 Diverticulitis of colon without hemorrhage 12/15 Overview (12/05/2023): Incidental finding at colonoscopy 12/16/2011. Asthma 07/04/2011 GERD (gastroesophageal reflux disease) 2 HTN (hypertension) 07/04/2011 Hypercholesteremia 07/04/2011 Overweight 07/04/2011 Seasonal allergies 07/04/2011 Encounters Date Type Department Care Team Description 11/07/2024 Telephone [facility] [address] [place] [address] Annalise Vang MD from Last 3 Months Immunizations Immunization Administration Dates Next Due Influenza Quadravalent, MDCK , 0.5ml, preservative free (Flucelvax) 6mo and older 03/19/2018 Influenza Quadravalent, MDCK , 0.5ml, with preservative (Flucelvax) 6mo and older 01/03/2017 Influenza trivalent, 0.5mL ( Fluad) 65yo and older 04/23/2024 Influenza trivalent, 0.5mL ( Fluzone High-dose) 65yo and older 02/21/2022,04/01/2021,11/25/2019,2018 Influenza trivalent, with preservative (Fluzone; Afluria) 6mo and older 03/10/2015,01/05/2014,02/21/2013 Pneumococcal conjugate 13 va lent (Prevnar 13, PCV13) 2mo and older 09/28/2016 Tdap Tetanus diptheria acell ular pertussis (Boostrix; Adacel) 7yo and older 06/26/2012 Zoster Live 08/19/2016 Surgical History Surgery Date Site/Laterality Comments COLONOSCOPY 2006 PROCEDURE: HISTORICAL COLONOSCOPY; COMMENT: Zeroogian; negative COLONOSCOPY 2011 PROCEDURE: HISTORICAL COLONOSCOPY; COMMENT: diverticulosis Medical History Medical History Date Comments GERD (gastroesophageal reflux disease) 07/04/2011 DX:GERD (gastroesophageal reflux disease) HTN (hypertension) 07/04/2011 DX:HTN (hyper tension) Asthma 07/04/2011 DX:Asthma Hypercholesteremia 07/04/2011 DX:Hyperchole steremia Overweight(278.02) 07/04/2011 DX:Overweight (278.02) Diverticulosis of colon (wit hout mention of hemorrhage) 12/16/2011 DX:Diverticulosis of colon (without mention of hemorrhage) Family History Medical History Relation Name Comments Colon cancer Father Relation Name Status Comments Father Social History Tobacco Use Types Packs/Day Years Used Date Smoking Tobacco: Never Smokeless Tobacco: Never Tobacco Cessation:Counseling Given: Not Answered Alcohol Use Standard Drinks/Week Comments No 0 (1 standard drink = 0.6 oz pur e alcohol) Housing Instability Answer Date Recorde d Are you worried that in the next 2 months you may not have stable housing? No 04/22/2024 Food Access & Nutrition Answer Date Rec orded Do you have access to a vari ety of food including fruits and vegetables? Yes 04/22/2024 Access to Healthcare Answer Date Record ed Within the last 3 months, ho w many times did you visit the emergency department for your medical care? 0 04/22/2024 Health Literacy Answer Date Recorded How often do you need to hav e someone help you when you read instructions, pamphlets, or other written material from your doctor or pharmacy? Never 04/22/2024 Caregiver: How often do you need to have someone help you when you read instructions, pamphlets, or other written material from your doctor or pharmacy? Not on file 04/22/2024 Financial Risk Answer Date Recorded How hard is it for you to pa y for the very basics like food, housing, medical care, and air conditioning / heating? Somewhat hard 04/22/2024 Transportation Answer Date Recorded Has the lack of transportati on kept you from meetings, work, or from getting things needed for daily living? No 04/22/2024 Has the lack of transportati on kept you from medical appointments or from getting medications? Patient declined 04/22/2024 Social Isolation Answer Date Recorded How often do you feel lonely or isolated from th ose around you? Never 04/22/2024 Food Risk Answer Date Recorded Within the past 12 months we worried whether our food would run out before we got money to buy more. Patient declined 025 Within the past 12 months th e food we bought just didn't last and we didn't have money to get more. Patient declined 04/06 Dependent Care Answer Date Recorded Do you need help finding or paying for care for your loved ones. For example, attendant children's institution or elderly care for an older adult? No 04/22/2024 Education Answer Date Recorded Do you think completing more education or training, like finishing a GED, going to college, or learning a trade, would be helpful for you? Patient declined 04/22/2024 Employment and Income Answer Date Recor ded During the last four weeks, have you been actively looking for work? No 04/22/2024 Living Situation Answer Date Recorded What is your living situation? Unrecognized valu e 04/22/2024 Sex and Gender Information Value Date Recorded Sex Assigned at Not on file Legal Sex Male 12:12 PM EST Gender Identity Not on file Sexual Orientation Not on file Obstetrics History Last Filed Vital Signs Vital Sign Reading Time Taken Comments Blood Pressure 136/74 07/16/2024 4:12 PM EDT Pulse 92 07/16/2024 4:12 PM EDT Temperature 35.6 C (96.1 F) 07/16/2024 4:12 PM EDT Respiratory Rate 16 07/01/2024 2:22 PM EDT Oxygen Saturation 99% 07/16/2024 4:12 PM EDT Inhaled Oxygen Concentration - - Weight 80.7 kg (178 lb) 07/16/2024 4:12 PM EDT Height 172.7 cm (5' 8 ) 07/16/2024 4:12 PM EDT Body Mass Index 27.06 07/16/2024 4:12 PM EDT Plan of Treatment Upcoming Encounters Date Type Department Care Team (Late st Contact Info) Description 02/12/2025 3:20 PM EST Office Visit [address] [phone] Jocelin Carlin MD [address] [place] [address] 05/06/2025 1:00 PM EST Office Visit Adult Medicine [facility] - [address] [phone] Lacie Noel PA [address] [place] [phone] Health Maintenance Due Date Last Done Comments Diabetes: Annual Retina Eye Exam 01/13/1964 RSV Immunization Adult Patients (1 - Risk 50-74 years 1-dose series) 01/13/2004 Zoster Vaccines (1 of 2) 10/14/2016 08/19/2016 Pneumococcal Vaccine: 50+ Years (2 of 2 - PPSV23, PCV20, or PCV21) 11/23/2016 09/28/2016 Medicare Annual Wellness Visit 02/11/2022 DTaP,Tdap,and Td Vaccines (2 - Td or Tdap) 06/26/2022 06/26/2012 Diabetes: Annual Foot Exam 05/18/2024 05/19/2023 Diabetes: Blood Sugar Control Test (HGBA1C) 10/21/2024 04/23/2024, 08/16/2023, 08/16/2023 COVID-19 Vaccine ( season) 2024 08/05/2021, 06/27/2020, 06/06/2020 Influenza Vaccine (#1) 2024 , 02/21/2022, 04/01/2021, Additional history exists Social Influencers of Health Screening 04/22/2025 04/22/2024 Diabetes: Annual Urine Albumin-Creatinine Ratio (uACR) 04/23/2025 04/23/2024, 04/14/2023 Diabetes: Annual GFR (Glomerular Filtration Rate) 04/23/2025 04/23/2024, 04/03/2023 Falls Risk Assessment 04/23/2025 04/23/2024 Hypertension/CHF/CAD Annual BMP Blood Test 04/23/2025 04/23/2024, 04/03/2023 Colorectal Cancer Screening: Colonoscopy 02/14/2028 02/13/2023, 02/13/2023 Cholesterol Screening (Lipid Panel) 04/23/2029 04/23/2024, 04/03/2023 Hepatitis C Screening Completed 06/26/2013 Depression Screening Completed 04/22/2024, 04/14/19 HIB Vaccines Aged Out No longer eligi ble based on patient's age to complete this topic HPV Vaccines Aged Out No longer eligi ble based on patient's age to complete this topic Hepatitis A Vaccines Aged Out No long er eligible based on patient's age to complete this topic Hepatitis B Vaccines Aged Out No long er eligible based on patient's age to complete this topic IPV Vaccines Aged Out No longer eligi ble based on patient's age to complete this topic MMR Vaccines Aged Out No longer eligi ble based on patient's age to complete this topic Meningococcal ACWY Vaccine Aged Out N o longer eligible based on patient's age to complete this topic Meningococcal B Vaccine Aged Out No l onger eligible based on patient's age to complete this topic RSV Immunization Patients Under 20 months Aged Out No longer eligible based on patient's age to complete this topic Varicella Vaccines Aged Out No longer eligible based on patient's age to complete this topic Procedures Procedure Name Priority Date/Time Associated Diagnosis Comments MICROALBUMIN CREATININE URINE RATIO Routine 04/23/2024 2:14 PM EST Type 2 diabetes mellitus with stage 3a chronic kidney disease, without long-term current use of insulin ([facility] V24, [facility] V28) COMPREHENSIVE METABOLIC PANEL Routine 04/23/2024 2:05 PM EST Type 2 diabetes mellitus with stage 3a chronic kidney disease, without long-term current use of insulin ([facility] V24, [facility] V28) Stage 3a chronic kidney disease ([facility] V24, [facility] V28) Primary hypertension Encounter for long-term (current) use of medications HEMOGLOBIN A1C Routine 04/23/2024 2:05 PM EST Type 2 diabetes mellitus with stage 3a chronic kidney disease, without long-term current use of insulin ([facility] V24, [facility] V28) LIPID PANEL WITH REFLEX TO DIRECT LDL Routine 04/23/2024 2:05 PM EST Hypercholesteremia DIABETES FOOT EXAM Routine 05/19/2023 DEPRESSION SCREENING Routine 04/14/2023 COLONOSCOPY Routine 02/13/2023 HEPATITIS C SCREENING Routine 06/26/2013 from Last 3 Months or Most Recently Relevant to Health Maintenance Results * Microalbumin creatinine urine ratio (04/23/2024 2:14 PM EST) Creatinine, Urine 183.0 mg/dL LAB CHEMISTRY METHOD 04/23/2024 5:[address] [facility] Microalb, Ur 27.0 0.0 - 29.0 mg/L LAB CHEMISTRY METHOD 04/23/2024 5:[address] [facility] Microalb/Creat Ratio 15 <30 mg/g creat LAB CHEMISTRY METHOD 04/23/2024 5:[address] [facility] Urine Urine specimen obtained by clean catch procedure / Unknown Non-blood Collection / Unknown 04/23/2024 2:14 PM EST 04/23/2024 2:14 PM EST Aiden Angulo MD LAB URINE ORDERABLES Final Resu lt Performing Organization Address City/[facility]/ZIP Co de Phone Number [facility] [address] [place] [address], [place] [phone] * (ABNORMAL) Lipid panel with reflex to direct LDL (04/23/2024 2:05 PM EST) Cholesterol 154 0 - 200 mg/dL LAB CHEMISTRY METHOD 04/23/2024 5:23 PM [facility] Triglycerides 290(H) 0 - 150 mg/dL LAB CHEMISTRY METHOD 04/23/2024 5:23 PM [facility] HDL 41 >=40 mg/dL LAB CHEMISTRY METHOD 04/23/2024 5:23 PM [facility] LDL Calculated 55 0 - 100 mg/dL LAB CHEMISTRY METHOD 04/23/2024 5:[address] [facility] VLDL Cholesterol Louis 58 mg/dL LAB CHEMISTRY METHOD 04/23/2024 5:23 PM [facility] Non HDL Chol. (LDL+VLDL) 113 <145 mg/dL LAB CHEMISTRY METHOD 04/23/2024 5:23 PM [facility] Chol/HDL Ratio 3.8 0.0 - 4.4 LAB CHEMISTRY METHOD 04/23/2024 5:23 PM [facility] Blood Venous blood specimen / Unknown Venipuncture / Unknown 04/23/2024 2:05 PM EST 04/23/2024 2:05 PM EST us Aiden Angulo MD LAB BLOOD ORDERABLES Final Resu lt Performing Organization Address [facility]/ZIP Co de Phone Number [facility] [address] [place] [address], [place] [phone] * (ABNORMAL) Hemoglobin A1c (04/23/2024 2:05 PM EST) Pathologist [facility] Hemoglobin A1C 7.3(H) <6.5 % LAB CHEMISTRY METHOD 04/23/2024 9:25 PM [facility] Mean Bld Glu Estim. 163 mg/dL LAB CHEMISTRY METHOD 04/23/2024 9:25 PM [facility] Blood Venous blood specimen / Unknown Venipuncture / Unknown 04/23/2024 2:05 PM EST 04/23/2024 2:05 PM EST us Aiden Angulo MD LAB BLOOD ORDERABLES Final Resu lt [facility] [address] [place] [address], * (ABNORMAL) Comprehensive metabolic panel (04/23/2024 2:05 PM EST) [facility] Sodium 139 133 - 145 mmol/L LAB CHEMISTRY METHOD 04/23/2024 5:23 PM [facility] Potassium 4.6 3.5 - 5.5 mmol/L LAB CHEMISTRY METHOD 04/23/2024 5:23 PM [facility] Chloride 107 96 - 110 mmol/L LAB CHEMISTRY METHOD 04/23/2024 5:23 PM [facility] CO2 26 21 - 32 mmol/L LAB CHEMISTRY METHOD 04/23/2024 5:23 PM [facility] Anion Gap 6 3 - 11 LAB CHEMISTRY METHOD 04/23/2024 5:23 PM [facility] Glucose 147(H) 70 - 100 mg/dL LAB CHEMISTRY METHOD 04/23/2024 5:23 PM [facility] BUN 23 5 - 25 mg/dL LAB CHEMISTRY METHOD 04/23/2024 5:23 PM [facility] Creatinine 1.54(H) 0.70 - 1.30 mg/dL LAB CHEMISTRY METHOD 04/23/2024 5:23 PM [facility] eGFR 48(L) >=60 mL/min/1. 73m2 LAB CHEMISTRY METHOD 04/23/2024 5:23 PM [facility] Comment:Calculation based on the Chronic Kidney Disease Epidemiology Collaboration (CKD-EPI) equation refit without adjustment for race. BUN/Creatinine Ratio 14.9 LAB CHEMISTRY METHOD 04/23/2024 5:23 PM [facility] Calcium 9.6 8.5 - 10.5 mg/dL LAB CHEMISTRY METHOD 04/23/2024 5:23 PM [facility] AST (SGOT) 22 10 - 42 unit/L LAB CHEMISTRY METHOD 04/23/2024 5:23 PM [facility] ALT (SGPT) 43 10 - 60 unit/L LAB CHEMISTRY METHOD 04/23/2024 5:23 PM [facility] Alkaline Phosphatase 50 42 - 121 unit/L LAB CHEMISTRY METHOD 04/23/2024 5:23 PM [facility] Total Protein 7.9 6.0 - 8.0 g/dL LAB CHEMISTRY METHOD 04/23/2024 5:23 PM [facility] Albumin 4.6 3.2 - 5.0 g/dL LAB CHEMISTRY METHOD 04/23/2024 5:23 PM [facility] Total Bilirubin 0.5 0.0 - 1.4 mg/dL LAB CHEMISTRY METHOD 04/23/2024 5:23 PM [facility] Blood Venous blood specimen / Unknown Venipuncture / Unknown 04/23/2024 2:05 PM EST 04/23/2024 2:05 PM EST us Aiden Angulo MD LAB BLOOD ORDERABLES Final Resu lt [facility] [address] [place] [address], * Diabetes Foot Exam (05/19/2023) Pathologist [facility] Diabetes: Annual Foot Exam abstracted Historical Provider MD HEALTH MAINTENANCE Final Result * Depression Screening (04/14/2023) Pathologist [facility] Depression Screening abstracted [facility] Provider HEALTH MAINTENANCE Final Result * Colonoscopy (02/13/2023) Pathologist [facility] Colonoscopy no interpretation , abstracted Anatomical Region Laterality Modality Other Historical Provider HEALTH MAINTENANCE Final Result * Hepatitis C Screening (06/26/2013) [facility] Hepatitis C Screening abstracted [facility] Provider HEALTH MAINTENANCE Final Result from Last 3 Months or Most Recently Relevant to Health Maintenance Insurance [employer] MED[employer]ARE Care Teams Senior Commissions Analyst Relationship Specialty Start Date End Date Aiden Angulo MD [address] [place] [address] PCP - General Internal Medicine 06/27/11
--- OUTSIDE RECORDS SUMMARY | 2025-01-18 07:50 | XMS_ITS | Patient Health Record ---
Author Organization [facility] Address [address] [place] [address] Care Team Providers Care Meat Grinder Name Role Phone Aiden Angulo Primary Care Provider ABDIRIZAK Ascencio Unavailable [phone] Allergies Allergen (clinical drug ingredient) Drug/Non Drug Allergy documented on EMR Reaction Allergy Type Onset Date Status aspirin Aspirin Unknown Drug Allergy Active Cecy Unknown Drug Allergy Active lisinopril Lisinopril Unknown Drug Allergy Activ e Substance with sulfonamide structure and antibacterial mechanism of action (substance) Sulfa Antibiotics Unknown Drug Allergy Active Reason For Referral No Information Medications Medication SIG (Take, Route, Frequency, Duration) Notes Start Date End Date Status metFORMIN HCl ER 500 MG 1 tablet with evening meal Orally Once a day Active Simvastatin 40 MG 1 tablet in the evening Orally Once a day Not-Taking Flomax 0.4 MG 1 capsule Orally Once a day PRN Active Cyclobenzaprine HCl 10 MG 1 tablet at bedtime as needed Orally 3 times a day prn Not-Taking Omeprazole 20 MG 1 capsule 30 minutes before morning meal Orally Once a day Active Gabapentin 300 MG 1 capsule Orally Once a day at night; Duration: 30 day(s) 03/10/2022 Not-Taking Atenolol 50 MG 1 tablet Orally Once a day Active Nabumetone 500 MG TAKE 1 TABLET BY MOUTH TWICE A DAY FOR 30 DAYS; Duration: 30 Not-Taking Baclofen 10 MG 1 tablet as needed Orally Twice a day; Duration: 30 days Not-Taking Diclofenac Sodium 1 % apply 1 gm to the toes on each foot Externally three times a day; Duration: 90 days 07/13/2020 Not-Taking Dulaglutide 1.5 MG/0.5ML as directed Subcutaneous inject 1.5 mg into the skin every 7 days Not-Taking Gemfibrozil 600 MG 1 tablet 30 minutes before morning and evening meals Orally Twice a day Not-Taking Lidocaine-Prilocaine 2.5-2.5 % apply to the bottom of both feet Externally twice daily as needed; Duration: 30 days Active Baclofen 10 MG TAKE 1 TABLET BY MOUTH TWICE A DAY NEEDED FOR 30 DAYS; Duration: 90 Not-Taking Amitriptyline HCl 50 MG TAKE 1 TABLET BY MOUTH IN THE MORNING AND 2 TABLETS AT NIGHT FOR 90 DAYS; Duration: 90 Active Pregabalin 75 MG 1 capsule Orally once a day for week 1 then increase to twice daily; Duration: 30 days 06/13/2022 Not-Taking Trulicity once a week Active Gabapentin 300 MG 1 capsule Orally twice a day, once in the AM and once at night; Duration: 30 day(s) 03/22/2022 Not-Taking Diclofenac Sodium 75 MG TAKE 1 TABLET BY MOUTH TWICE A DAY NEEDED FOR 30 DAYS; Duration: 30 Not-Taking Problems Problem Type SNOMED Code ICD Code Onset Dates Problem Status W/U Status Risk Notes Problem Polyneuropathy due to type 2 diabetes mellitus (579803253) Type 2 diabetes mellitus with diabetic polyneuropathy (E11.42) Active confirmed Problem Long-term current use of insulin (247979084) 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) Active confirmed Problem Arthritis of joint of toe (304616612) Arthritis of joint of toe (M19.079) Active confirmed Vital Signs Heart Rate 93 /min 08/02/2024 Temperature 97.1 degrees Fahrenheit 08/02/2024 Respiratory Rate 12 /min 08/02/2024 Height 5ft 7in in 08/02/2024 Weight 181.1 lbs 08/02/2024 BMI 28.36 kg/m2 08/02/2024 Encounters Encounter Location Date Provider Diagnosis [facility] [address] [place] [address] 04/03/2024 ABDIRIZAK VELASQUEZ Type 2 diabetes mellitus with diabetic polyneuropathy E11.42 ; Arthritis of joint of toe M19.079 ; care home (current) use of insulin Z79.4 ; Pain in left toe(s) M79.675 ; Pain in right toe(s) M79.674 and Bilateral leg cramps R25.2 [facility] [address] 08/02/2024 ABDIRIZAK VELASQUEZ Type 2 diabetes mellitus with diabetic polyneuropathy E11.42 ; Arthritis of joint of toe M19.079 ; intermediate accountant (current) use of insulin Z79.4 ; Pain in left toe(s) M79.675 ; Pain in right toe(s) M79.674 and Bilateral leg cramps R25.2 [facility] [address] 03/08/2024 ABDIRIZAK VELASQUEZ [facility] [address] 04/03/2024 ABDIRIZAK VELASQUEZ [facility] [address] 01/07/2025 ABDIRIZAK VELASQUEZ Assessments Encounter Date Diagnosis (ICD Code) Assessment Notes Treatment Notes Treatment Clinical Notes Section Notes 04/03/2024 Type 2 diabetes mellitus with diabetic polyneuropathy (ICD-10 - E11.42) We discussed all the recent sensations in his feet is related to diabetic neuropathy. We discussed that the burning pain is a nerve pain. I explained he is at risk of worsening the longer his hgba1c remains above 7%. Discussed with patient regarding proper glucose control, exercise, and diet. Explained to patient proper shoe gear, and importance of daily foot checks. I reviewed neuropathy and why it occurs in diabetics. I educated the patient on proper blood sugar control and the importance of an HgBA1c of less than 7.0%. I reviewed the signs and symptoms of neuropathy with the patient. We discussed the night pain seems to be more nerve related pain. He has tried three NSAIDs without any significant improvement. He tried gabapentin, lyrica and he is currently taking amitriptyline with no improvement. A new referral to neurology was placed as I have no further suggestions. He is in agreement with this plan. 08/02/2024 Type 2 diabetes mellitus with diabetic polyneuropathy (ICD-10 - E11.42) We discussed all the recent sensations in his feet is related to diabetic neuropathy. We discussed that the burning pain is a nerve pain. I explained he is at risk of worsening the longer his hgba1c remains above 7%. Discussed with patient regarding proper glucose control, exercise, and diet. Explained to patient proper shoe gear, and importance of daily foot checks. I reviewed neuropathy and why it occurs in diabetics. I educated the patient on proper blood sugar control and the importance of an HgBA1c of less than 7.0%. I reviewed the signs and symptoms of neuropathy with the patient. We discussed the night pain seems to be more nerve related pain. He has tried three NSAIDs without any significant improvement. He tried gabapentin, lyrica and he is currently taking amitriptyline with no improvement. A new referral to neurology was placed as I have no further suggestions. He is in agreement with this plan. 04/03/2024 Arthritis of joint of toe (ICD-10 - M19.079) We discussed that the stiffness and pain in the toes is likely a combination of arthritis and nerve pain. He has tried EMLA cream in the past without improvement. He is able to move and bend the toes without pain, there is no significant swelling of the joints on examination today. He tried the topical diclofenac without much improvement. He has tried the oral diclofenac and the nabumetone and states that did offer some improvement. Discussed the risks and side effects of taking an NSAID. 08/02/2024 Arthritis of joint of toe (ICD-10 - M19.079) We discussed that the stiffness and pain in the toes is likely a combination of arthritis and nerve pain. He has tried EMLA cream in the past without improvement. He is able to move and bend the toes without pain, there is no significant swelling of the joints on examination today. He tried the topical diclofenac without much improvement. He has tried the oral diclofenac and the nabumetone and states that did offer some improvement. Discussed the risks and side effects of taking an NSAID. 04/03/2024 intermediate accountant (current) use of insulin (ICD-10 - Z79.4) 08/02/2024 intermediate accountant (current) use of insulin (ICD-10 - Z79.4) 04/03/2024 Pain in left toe(s) (ICD-10 - M79.675) 08/02/2024 Pain in left toe(s) (ICD-10 - M79.675) 04/03/2024 Pain in right toe(s) (ICD-10 - M79.674) 08/02/2024 Pain in right toe(s) (ICD-10 - M79.674) 04/03/2024 Bilateral leg cramps (ICD-10 - R25.2) I discussed that the right foot pain was a lumbar radiculopathy, caused by the sciatica. I explained the area of his pain is the end of the sciatic nerve in his foot. We discussed the night cramping, which has not been controlled by any of the neurological agents. I recommended trying a muscle relaxant to see if it would help with the cramping. He is in agreement with this plan. RX emla cream to apply to the feet BID PRN pain. 08/02/2024 Bilateral leg cramps (ICD-10 - R25.2) I discussed that the right foot pain was a lumbar radiculopathy, caused by the sciatica. I explained the area of his pain is the end of the sciatic nerve in his foot. We discussed the night cramping, which has not been controlled by any of the neurological agents. I recommended trying a muscle relaxant to see if it would help with the cramping. He is in agreement with this plan. RX emla cream to apply to the feet BID PRN pain. Plan Of Treatment Pending Test Test Name Order Date X ray : Foot, left 3v 04/20/2023 X ray : Foot, right 3v 04/20/2023 Next Appt Details Provider Name:ABDIRIZAK VELASQUEZ, 01/22/2025 03:15:00 PM, [address], [address], Insurance Providers Payer Name Payer Address Payer Phone Subscriber Number Group Number Insured Name Patient Relationship to Insured Coverage Start Date Coverage End Date [employer] Medicare [id number] [address] [address] [place] [address] [id number] Eligio Smalls Self - patient is the insured Medical (General) History Medical History History ICD Code Chronic kidney disease, stage 3 unspecif ied N18.30 Diabetes mellitus type 2 with neurologic al manifestations E11.49 Type 2 diabetes mellitus with other diab etic kidney complication E11.29 Proteinuria, unspecified R80.9 Onychomycosis B35.1 Obstructive sleep apnea (adult) (pediatr ic) G47.33 Periodic limb movement disorder G47.61 Diverticulitis of large inte cleve without perforation or abscess without bleeding K57.32 Gastro-esophageal reflux disease without esophagitis K21.9 Essential hypertension I10 Unspecified asthma, uncomplicated J45.90 9 Pure hypercholesterolemia, unspecified E 78.00 Other seasonal allergic rhinitis J30.2 Overweight E66.3 COVID vaccinated X 3 ([employer]) Surgical History Surgery Date(Month/Year) colonoscopy Hospitalization History Reason Date(Month/Year) urosepsis 05/2023 diverticulitis
--- NOTE | 2025-01-18 09:52 | PC.NURSE ---
humphrey teaching this nurse spoke with the patient about having the regular bag vs leg bag during the day. Pt wanted a leg bag. Leg bag was obtained, this nurse applied leg bag attempting to teach the patient how to empty the leg bag and how to change it back over to the regular bag at night. Pt was unable to grasp the concept and asked if he could just have the regular bag 24 hours a day- this nurse told the patient he could use the regular bag around the clock which I told him he could do so. He opted to use the regular bag, this nurse swapped it back to the regular bag for the patient and began teaching the patient the care of the humphrey and how to empty it. During the 20 minutes of teaching the patient was unable to grasp how to empty the bag on his own and became frustrated when he was unable to do so. Provider was notified and a case management consult was placed to see if we can get services to help the patient at home as his is recovering from a recent [place].
--- NOTE | 2025-01-18 11:41 | MHC.CM.PN ---
CONSULT RECEIVED FOR PT WHO WILL DC WITH A NEW F/C PT LIVES WITH HIS AND IS INDEPENDENT WITH CARE REFERRAL MADE TO [facility] PT IS AWARE OF DCP AND THAT THE VNA WILL NOT SEE HIM BEFORE MONDAY HE REPORTS BEING CONCERNED THAT HE CANNOT EMPTY HIS BAG HE REPORTS HIS IS UNABLE TO COME IN AND DOES NOT HAVE VIDEO CALLING ON HER PHONE, RN NOTES HE ALSO TOLD HER IS RECOVERING FROM AN DE RN AND MD INFORMED OF PTS CONCERNS. PT REPORTS HIS BROTHER IN LAW WILL LIKELY TRANSPORT AND HE WILL CALL HIM
[2025-01-18 12:43] VITALS: BP 129/71; PULSE 100; RESP 18; TEMP 36.8; O2SAT 93
== END 2025-01-18 12:43 | disposition home or self-care (01) ==
PROVIDERS: Emergency Provider Emergency Medicine; PCP Internal Medicine
DX: R33.9 Retention of urine, unspecified (principal); R10.9 Unspecified abdominal pain; E11.9 Type 2 diabetes mellitus without complications; Z79.84 Long term (current) use of oral hypoglycemic drugs; I10 Essential (primary) hypertension; K21.9 Gastro-esophageal reflux disease without esophagitis; E78.2 Mixed hyperlipidemia
CPT/HCPCS: 36415; 80053; 81001; 85025; 99284; 99285

== ENCOUNTER 2025-01-26 22:38 | Emergency (ER) | payer MEDICARE, SELFPAY ==
--- OUTSIDE RECORDS SUMMARY | 2023-09-18 10:30 | XMS_ITS ---
Author Organization [facility] Address [address] [address] Care Team Providers Care Heat Treat Inspector Name Role Phone Aiden Angulo Primary Care Provider ABDIRIZAK Ascencio Unavailable [phone] REASON FOR VISIT 4 month follow up Encounters Encounter Location Date Provider Diagnosis [facility] [address] [address] 09/18/2023 ABDIRIZAK BENNETT Plan Of Treatment Next Appt Details Provider Name:ABDIRIZAK BENNETT, 04/25/2025 03:30:00 PM, [address] [facility] [address], [place], [address], Progress Notes * Eligio SMALLS MDOB:[birth year] (70 yo M)Acc No.[id number]:09/18/2023 Progress Note Patient: Eligio WALKER Provider: Rosalind Bennett DPM :1955 A ge:68 Y S ex:Male Date:09/18/2023 Address:[address] [id number] Pcp:Aiden Angulo Subjective: * Chief Complaints: * 1 . 4 month follow up. * Medical History: Objective: * Vitals: Assessment: Plan: * Treatment: * Billing Information: * Visit Code: * Procedure Codes: * Electronic signature of CLOVER BENNETT D.P.M on 01/26/2025 at 11:14 PM EST Sign off status: Pending * Provider: Rosalind Bennett DPM Date: 0 09/18/2023 Generated for Kyra samano/Eliseo/Trevor on: 1 03/28/2024 11:14 PM EST
--- OUTSIDE RECORDS SUMMARY | 2024-01-19 09:30 | XMS_ITS ---
Author Organization [facility] Address [address] [address] Care Team Providers Care Nc Manager Name Role Phone Aiden Angulo Primary Care Provider ABDIRIZAK Ascencio Unavailable [phone] REASON FOR VISIT 4 month follow up Encounters Encounter Location Date Provider Diagnosis [facility] [address] [address] 01/19/2024 ABDIRIZAK BENNETT Plan Of Treatment Next Appt Details Provider Name:ABDIRIZAK BENNETT, 04/25/2025 03:30:00 PM, [address] [facility] [address], [place], [address], Progress Notes * Eligio SMALLS MDOB:[birth year] (70 yo M)Acc No.[id number]:01/19/2024 Progress Note Patient: Eligio WALKER Provider: Rosalind Bennett DPM :1955 A ge:69 Y S ex:Male Date:01/19/2024 Address:[address] [id number] Pcp:Aiden Angulo Subjective: * Chief Complaints: * 1 . 4 month follow up. * Medical History: Objective: * Vitals: Assessment: Plan: * Treatment: * Billing Information: * Visit Code: * Procedure Codes: * Electronic signature of CLOVER BENNETT D.P.M on 01/26/2025 at 11:14 PM EST Sign off status: Pending * Provider: Rosalind Bennett DPM Date: 03/20/2023 Generated for Kyra samano/Eliseo/Trevor on: 03/28/2024 11:14 PM EST
--- OUTSIDE RECORDS SUMMARY | 2024-11-25 09:15 | XMS_ITS ---
Author Organization [facility] Address [address] [address] Care Team Providers Care Potash Flaker Name Role Phone Aiden Angulo Primary Care Provider UnavailABDIRIZAK Cooley Unavailable [phone] REASON FOR VISIT 3 month f/u Encounters Encounter Location Date Provider Diagnosis [facility] [address] [facility] [address] [place] [address] 11/25/2024 ABDIRIZAK BENNETT Plan Of Treatment Next Appt Details Provider Name:ABDIRIZAK BENNETT, 04/25/2025 03:30:00 PM, [address] [facility] [address], [place], [address], Progress Notes * Eligio SMALLS MDOB:[birth year] (70 yo M)Acc No.[id number]:11/25/2024 Progress Note Patient: Eligio WALKER Provider: Rosalind Bennett DPM :1955 A ge:69 Y S ex:Male Date:11/25/2024 Address:[address] [id number] Pcp:Aiden Angulo Subjective: * Chief Complaints: * 1 . 3 month f/u. * Medical History: Objective: * Vitals: Assessment: Plan: * Treatment: * Billing Information: * Visit Code: * Procedure Codes: * Electronic signature of CLOVER BENNETT D.P.M on 01/26/2025 at 11:14 PM EST Sign off status: Pending * Provider: Rosalind Bennett DPM Date: 0 11/25/2024 Generated for Kyra samano/Eliseo/Trevor on: 1 03/28/2024 11:14 PM EST
--- OUTSIDE RECORDS SUMMARY | 2025-01-17 09:30 | XMS_ITS ---
Author Organization [facility] Address [address] [address] Care Team Providers Care Specimen Technician Name Role Phone Aiden Angulo Primary Care Provider UnavailABDIRIZAK Cooley Unavailable [phone] REASON FOR VISIT 3 month f/u Encounters Encounter Location Date Provider Diagnosis [facility] [address] [facility] [address] [place] [address] 01/17/2025 ABDIRIZAK BENNETT Plan Of Treatment Next Appt Details Provider Name:ABDIRIZAK BENNETT, 04/25/2025 03:30:00 PM, [address] [facility] [address], [place], [address], Progress Notes * Eligio SMALLS MDOB:[birth year] (70 yo M)Acc No.[id number]:01/17/2025 Progress Note Patient: Eligio WALKER Provider: Rosalind Bennett DPM :1955 A ge:70 Y S ex:Male Date:01/17/2025 Address:[address] [id number] Pcp:Aiden Angulo Subjective: * Chief Complaints: * 1 . 3 month f/u. * Medical History: Objective: * Vitals: Assessment: Plan: * Treatment: * Billing Information: * Visit Code: * Procedure Codes: * Electronic signature of CLOVER BENNETT D.P.M on 01/26/2025 at 11:14 PM EST Sign off status: Pending * Provider: Rosalind Bennett DPM Date: 03/19/2024 Generated for Kyra samano/Eliseo/Trevor on: 03/28/2024 11:14 PM EST
--- OUTSIDE RECORDS SUMMARY | 2025-01-22 10:15 | XMS_ITS ---
Author Organization [facility] Address [address] [facility] [address] [place] [address] Care Team Providers Care Shopping Investigator Name Role Phone Aiden Angulo Primary Care Provider ABDIRIZAK Ascencio Unavailable [phone] Allergies Allergen (clinical drug ingredient) Drug/Non Drug Allergy documented on EMR Reaction Allergy Type Onset Date Status aspirin Aspirin Unknown Drug Allergy Active Cecy Unknown Drug Allergy Active lisinopril Lisinopril Unknown Drug Allergy Activ e Substance with sulfonamide structure and antibacterial mechanism of action (substance) Sulfa Antibiotics Unknown Drug Allergy Active REASON FOR VISIT 3 month f/u Medications Medication SIG (Take, Route, Frequency, Duration) Notes Start Date End Date Status Gabapentin 300 MG 1 capsule Orally twice a day, once in the AM and once at night; Duration: 30 day(s) 03/22/2022 Not-Taking Pregabalin 75 MG 1 capsule Orally once a day for week 1 then increase to twice daily; Duration: 30 days 06/13/2022 Not-Taking Diclofenac Sodium 75 MG TAKE 1 TABLET BY MOUTH TWICE A DAY NEEDED FOR 30 DAYS; Duration: 30 Not-Taking Dulaglutide 1.5 MG/0.5ML as directed Subcutaneous inject 1.5 mg into the skin every 7 days Not-Taking Diclofenac Sodium 1 % apply 1 gm to the toes on each foot Externally three times a day; Duration: 90 days 07/13/2020 Not-Taking Cyclobenzaprine HCl 10 MG 1 tablet at bedtime as needed Orally 3 times a day prn Not-Taking Simvastatin 40 MG 1 tablet in the evening Orally Once a day Not-Taking Nabumetone 500 MG TAKE 1 TABLET BY MOUTH TWICE A DAY FOR 30 DAYS; Duration: 30 Not-Taking Cyclobenzaprine HCl 5 MG 1 tablet at bedtime as needed Orally Once a day; Duration: 90 days 01/22/2025 Active Gabapentin 300 MG 1 capsule Orally Once a day at night; Duration: 30 day(s) 03/10/2022 Not-Taking Gemfibrozil 600 MG 1 tablet 30 minutes before morning and evening meals Orally Twice a day Not-Taking Amitriptyline HCl 50 MG take 1 tablet in the morning and 2 tablets at night Orally Once a day; Duration: 90 days Active Lidocaine-Prilocaine 2.5-2.5 % apply to the bottom of both feet Externally twice daily as needed; Duration: 30 days Active Baclofen 10 MG 1 tablet as needed Orally Twice a day; Duration: 30 days Not-Taking Baclofen 10 MG TAKE 1 TABLET BY MOUTH TWICE A DAY NEEDED FOR 30 DAYS; Duration: 90 Not-Taking metFORMIN HCl ER 500 MG 1 tablet with evening meal Orally Once a day Active Atenolol 50 MG 1 tablet Orally Once a day Active Omeprazole 20 MG 1 capsule 30 minutes before morning meal Orally Once a day Active Trulicity once a week Active Amitriptyline HCl 50 MG TAKE 1 TABLET BY MOUTH IN THE MORNING AND 2 TABLETS AT NIGHT FOR 90 DAYS; Duration: 90 Active Flomax 0.4 MG 1 capsule Orally Once a day PRN Active Vital Signs Temperature 97.5 degrees Fahrenheit 01/23/20 25 Heart Rate 128 /min 01/22/2025 Respiratory Rate 16 /min 01/22/2025 Height 5ft 7in in 01/22/2025 Weight 186.3 lbs 01/22/2025 BMI 29.18 kg/m2 01/22/2025 Encounters Encounter Location Date Provider Diagnosis [facility] [address] [facility] [address] [place] [address] 01/22/2025 ABDIRIZAK BENNETT Type 2 diabetes mellitus with diabetic polyneuropathy E11.42 ; Arthritis of joint of toe M19.079 ; long-term (current) use of insulin Z79.4 ; Pain in left toe(s) M79.675 ; Pain in right toe(s) M79.674 and Bilateral leg cramps R25.2 Assessments Encounter Date Diagnosis (ICD Code) Assessment Notes Treatment Notes Treatment Clinical Notes Section Notes 01/22/2025 Type 2 diabetes mellitus with diabetic polyneuropathy [...] He is in agreement with this plan. 01/22/2025 Arthritis of joint of toe (ICD-10 - [...] and side effects of taking an NSAID. 01/22/2025 long-term (current) use of insulin (ICD-10 - Z79.4) 01/22/2025 Pain in left toe(s) (ICD-10 - M79.675) 01/22/2025 Pain in right toe(s) (ICD-10 - M79.674) 01/22/2025 Bilateral leg cramps (ICD-10 - R25.2) I [...] is in agreement with this plan. RX Flexeril 5mg PO bedtime as needed for cramping. Plan Of Treatment Medication Medication Name Sig Start Date Stop Date Notes Cyclobenzaprine HCl 5 MG 1 tablet at bed time as needed Orally Once a day; Duration: 90 days 01/22/2025 Amitriptyline HCl 50 MG take 1 tablet in the morning and 2 tablets at night Orally Once a day; Duration: 90 days Lidocaine-Prilocaine 2.5-2.5 % apply to the bottom of both feet Externally twice daily as needed; Duration: 30 days Treatment Notes Assessment Notes Bilateral leg cramps I discussed that th e right foot pain was a lumbar radiculopathy, [...] is in agreement with this plan. RX Flexeril 5mg PO bedtime as needed for cramping. Next Appt Details Follow Up: 3 Months, Reason: Provider Name:ABDIRIZAK BENNETT, 04/25/2025 03:30:00 PM, [address], [address], Progress Notes * Eligio SMALLS MDOB:[birth year] (70 yo M)Acc No.[id number]:01/22/2025 Progress Note Patient: Eligio WALKER Provider: Rosalind Bennett DPM :1955 A ge:70 Y S ex:Male Date:01/22/2025 Address:[address] [place], [place] [id number] Pcp:Aiden Angulo Subjective: * Chief Complaints: * 3 month f/u * HPI: C onstitutional: This 70 y/o male returns to my office as a follow-up to foot fungus, a diabetic foot evaluation, and foot pain. He is using the amitriptyline at night with no improvement of the neuropathy pain. He also complains of an increase in cramping in his feet at night. He notes some burning in his feet along the sides of the heels which has been happening almost every night. He states the pain in his feet mainly happens at night, worse on the left foot. He has no other foot complaints this visit. His last visit with his PCP care team for diabetes management Dr Angulo was 11/07/2024. His last hgba1c was 7.3. Allergies and medical history reviewed. * ROS: G ENERAL: Pt denies nausea, fever, vomiting, chills, or shortness of breath. Pt in NAD. ALLERGY: patient denies any new allergy HEME/ONC: patient denies any bleeding or clotting disorders CARDIOLOGY: pt denies chest pain, palpitations LUNGS: pt denies shortness of breath ABDOMEN: patient denies any bloating, abdominal pain, or swelling MUSCULOSKELETAL: See HPI, otherwise no joint pain or swelling, back pain, or muscle pain. SKIN: see HPI, otherwise no lesions, rash or itching NEURO: patient complains of leg cramping, and numbness in the toes. PSYCH: patient denies any current anxiety or depression The remainder of the review of systems is noncontributory. * Medical History: * Surgical History: c olonoscopy * Hospitalization/Major Diagno stic Procedure: d iverticulitis urosepsis 05/2023 * Family History: F ather: colon cancer. * Social History: T obacco: never smoker Alcohol: no. * Medications: T akingFlomax 0.4 MG Capsule 1 capsule Orally Once a day , Notes to Pharmacist: PRNmetFORMIN HCl ER 500 MG Tablet Extended Release 24 Hour 1 tablet with evening meal Orally Once a day Atenolol 50 MG Tablet 1 tablet Orally Once a day Omeprazole 20 MG Capsule Delayed Release 1 capsule 30 minutes before morning meal Orally Once a day Bari , Notes to Pharmacist: once a weekLidocaine-Prilocaine 2.5-2.5 % Cream apply to the bottom of both feet Externally twice daily as needed Amitriptyline HCl 50 MG Tablet TAKE 1 TABLET BY MOUTH IN THE MORNING AND 2 TABLETS AT NIGHT FOR 90 DAYS Taking Flomax 0.4 MG Capsule 1 capsule Orally Once a day , Notes to Pharmacist: PRNTaking metFORMIN HCl ER 500 MG Tablet Extended Release 24 Hour 1 tablet with evening meal Orally Once a day Taking Atenolol 50 MG Tablet 1 tablet Orally Once a day Taking Omeprazole 20 MG Capsule Delayed Release 1 capsule 30 minutes before morning meal Orally Once a day Taking Bari , Notes to Pharmacist: once a weekTaking Lidocaine-Prilocaine 2.5-2.5 % Cream apply to the bottom of both feet Externally twice daily as needed Taking Amitriptyline HCl 50 MG Tablet TAKE 1 TABLET BY MOUTH IN THE MORNING AND 2 TABLETS AT NIGHT FOR 90 DAYS Not-TakingBaclofen 10 MG Tablet 1 tablet as needed Orally Twice a day Baclofen 10 MG Tablet TAKE 1 TABLET BY MOUTH TWICE A DAY NEEDED FOR 30 DAYS Gemfibrozil 600 MG Tablet 1 tablet 30 minutes before morning and evening meals Orally Twice a day Cyclobenzaprine HCl 10 MG Tablet 1 tablet at bedtime as needed Orally 3 times a day prn Simvastatin 40 MG Tablet 1 tablet in the evening Orally Once a day Nabumetone 500 MG Tablet TAKE 1 TABLET BY MOUTH TWICE A DAY FOR 30 DAYS Gabapentin 300 MG Capsule 1 capsule Orally Once a day at night Gabapentin 300 MG Capsule 1 capsule Orally twice a day, once in the AM and once at night Pregabalin 75 MG Capsule 1 capsule Orally once a day for week 1 then increase to twice daily Diclofenac Sodium 75 MG Tablet Delayed Release TAKE 1 TABLET BY MOUTH TWICE A DAY NEEDED FOR 30 DAYS Dulaglutide 1.5 MG/0.5ML Solution Pen-injector as directed Subcutaneous inject 1.5 mg into the skin every 7 days Diclofenac Sodium 1 % Gel apply 1 gm to the toes on each foot Externally three times a day Medication List reviewed and reconciled with the patientNot-Taking Baclofen 10 MG Tablet 1 tablet as needed Orally Twice a day Not-Taking Baclofen 10 MG Tablet TAKE 1 TABLET BY MOUTH TWICE A DAY NEEDED FOR 30 DAYS Not-Taking Gemfibrozil 600 MG Tablet 1 tablet 30 minutes before morning and evening meals Orally Twice a day Not-Taking Cyclobenzaprine HCl 10 MG Tablet 1 tablet at bedtime as needed Orally 3 times a day prn Not-Taking Simvastatin 40 MG Tablet 1 tablet in the evening Orally Once a day Not-Taking Nabumetone 500 MG Tablet TAKE 1 TABLET BY MOUTH TWICE A DAY FOR 30 DAYS Not-Taking Gabapentin 300 MG Capsule 1 capsule Orally Once a day at night Not-Taking Gabapentin 300 MG Capsule 1 capsule Orally twice a day, once in the AM and once at night Not-Taking Pregabalin 75 MG Capsule 1 capsule Orally once a day for week 1 then increase to twice daily Not-Taking Diclofenac Sodium 75 MG Tablet Delayed Release TAKE 1 TABLET BY MOUTH TWICE A DAY NEEDED FOR 30 DAYS Not-Taking Dulaglutide 1.5 MG/0.5ML Solution Pen-injector as directed Subcutaneous inject 1.5 mg into the skin every 7 days Not-Taking Diclofenac Sodium 1 % Gel apply 1 gm to the toes on each foot Externally three times a day Medication List reviewed and reconciled with the patient * Allergies: A spirinLisinoprilSulfa Mae[Allergies Verified] Objective: * Vitals: W t:186.3lbs, Ht: 5ft 7in, BMI:29.18Index, HR:128/min, Temp:97.5F, RR:16/min, Ht- cm: 170.18, Wt-k.51 kg. * Examination: G eneral Examination: G ENERAL: Patient appears well nourished, with NAD. VASCULAR: Dorsalis pedis pulses are 2/4 bilaterally and Posterior tibial pulses are 2/4 bilaterally. Capillary filling time within normal limits the digits. No pallor on elevation or rubor on dependency. Positive hair growth. No varicosities. Denies rest pain or claudication pain. Each foot temperature is within normal limits. NEUROLOGICAL: Sharp/dull sensation intact bilaterally, protective sensation diminished 7/10 with 5.07 [place] Shelia bilaterally, vibratory sensation with tuning fork diminished to the tibial tuberosity bilaterally, position sense intact bilaterally to the tibial tuberosity. ORTHOPEDIC: Good muscle strength 4+/5 of all flexors and extensors. Dorsi flexion of ankle ,0 degrees, plantar flexion WNL. No muscle atrophy. DERMATOLOGICAL: Normal skin temperature, normal skin turgor. Mild discoloration brittle flaking hallux toenails bilaterally. 5mm thickened dystrophic discolored elongated toenails of all ten toes with subungual debris and tenderness on palpation. BIOMECHANICS: STJ ROM WNL, MTJ ROM WNL, 1st MPJ ROM limited. On weight-bearing, hammer toes 2,3,4,5 bilaterally. SHOES: sneakers. Assessment: * Assessment: 1. T ype 2 diabetes mellitus with diabetic polyneuropathy - E11.42 (Primary) 2 . A rthritis of joint of toe - M19.079 3 . L evangelina term (current) use of insulin - Z79.4 4 . P ain in left toe(s) - M79.675 5 . P ain in right toe(s) - M79.674 6 . B ilateral leg cramps - R25.2 Plan: * Treatment: 2. A rthritis of joint of toe Clinical Notes: We discussed that the stiffness and pain [...] and side effects of taking an NSAID. 3. B ilateral leg cramps Start Cyclobenzaprine HCl Tablet, 5 MG, 1 tablet at bedtime as needed, Orally, Once a day, 90 days, 90 Tablet, Refills 0. Notes: I discussed that the right foot pain [...] is in agreement with this plan. RX Flexeril 5mg PO bedtime as needed for cramping. * Procedure Codes: * Follow Up: 3 Months * Billing Information: * Visit Code: 23346 Office Visit, Est Pt., Level 4. * Procedure Codes: * Sign off status: Completed true * Provider: Rosalind Bennett DPM Date: 03/24/2024 Generated for Kyra samano/Eliseo/Trevor on: 03/28/2024 11:15 PM EST History and Physical Notes * HPI (History of Present Illness) Category Sub-Category Detail Notes Category Not es Constitutional This 70 y/o m khushboo returns to my office as a follow-up to foot fungus, a diabetic foot evaluation, and foot pain. He is using the amitriptyline at night with no improvement of the neuropathy pain. He also complains of an increase in cramping in his feet at night. He notes some burning in his feet along the sides of the heels which has been happening almost every night. He states the pain in his feet mainly happens at night, worse on the left foot. He has no other foot complaints this visit. His last visit with his PCP care team for diabetes management Dr Angulo was 11/07/2024. His last hgba1c was 7.3. Allergies and medical history reviewed. Examination Category Sub-Category Detail Notes Category Not es General Examination GENERAL: Patient appears well nourished, with NAD. VASCULAR: Dorsalis pedis pulses are 2/4 bilaterally and Posterior tibial pulses are 2/4 bilaterally. Capillary filling time within normal limits the digits. No pallor on elevation or rubor on dependency. Positive hair growth. No varicosities. Denies rest pain or claudication pain. Each foot temperature is within normal limits. NEUROLOGICAL: Sharp/dull sensation intact bilaterally, protective sensation diminished 7/10 with 5.07 [place] She[place] bilaterally, vibratory sensation with tuning fork diminished to the tibial tuberosity bilaterally, position sense intact bilaterally to the tibial tuberosity. ORTHOPEDIC: Good muscle strength 4+/5 of all flexors and extensors. Dorsi flexion of ankle ,0 degrees, plantar flexion WNL. No muscle atrophy. DERMATOLOGICAL: Normal skin temperature, normal skin turgor. Mild discoloration brittle flaking hallux toenails bilaterally. 5mm thickened dystrophic discolored elongated toenails of all ten toes with subungual debris and tenderness on palpation. BIOMECHANICS: STJ ROM WNL, MTJ ROM WNL, 1st MPJ ROM limited. On weight-bearing, hammer toes 2,3,4,5 bilaterally. SHOES: sneakers
[2025-01-26 22:42] VITALS: BP 136/84; BP 137/98; PULSE 108; PULSE 90; RESP 18; TEMP 36.5; O2SAT 97; O2SAT 98; BMI 28.9
--- NOTE | 2025-01-26 23:09 | ED.MALEGU ---
HPI - Male Genitourinary General Chief complaint: Urogenital-Male Stated complaint: blood in humphrey bag Time Seen by Provider: 01/26/25 23:06 History of Present Illness ED Provider: Jimbo Newell MD HPI Narrative: Date & Time: 2025-01-27 Patient Name: : MRN: Author / Clinician: Jimbo Newell MD (Emergency Medicine) Chief Complaint Dark, blood-tinged urine noted in Humphrey catheter bag; discomfort and drainage at catheter insertion site. History of Present Illness ? The patient presented to the ED one week ago (Monday) with acute urinary retention and was catheterized. ? History of enlarged prostate with a similar episode ?a couple of years ago.? ? Discharged home the same day; instructed to follow up with urology. ? Home health nurse subsequently removed the original catheter and placed a ?late-type? Humphrey that the patient finds easier to manage. ? Tonight the patient observed dark, reddish urine in the Humphrey bag?described as ?blood coming out,? although the urine appears dark/tinged rather than gross blood. ? Denies abdominal, flank, or back pain. ? Reports significant skin pain and drainage around the catheter insertion site; no lubricant or topical product provided to date. ? Bennett dizzy at the time of the initial ED visit; currently feels well. ? Home health nurse is scheduled to return on Monday with additional supplies. ? No prior history of hematuria known to the patient. Review of Systems Genitourinary: Positive for dark/reddish urine in Humphrey bag; reports drainage and pain at catheter site. Abdomen/Flank/Back: Denies abdominal pain, flank pain, or back pain. Constitutional: Currently feels well; no systemic complaints. Neurologic: Reports prior dizziness at initial visit; none today. All other systems not discussed. Physical Examination Vital Signs: Physical Exam: - General: Alert, in no acute distress. - Abdomen: Soft, nontender to palpation per patient report (no abdominal pain stated). - Genitourinary: Humphrey catheter in place; collection bag contains dark, blood-tinged urine (not pure blood). Mild ricco-catheter skin irritation with reported tenderness and drainage. Emergency Department Course ? Inspected Humphrey bag; urine dark/reddish but ?doesn?t look terrible? per clinician. ? Chart review: plan to review previous laboratory data, particularly liver function tests. ? Discussed potential causes including catheter-related trauma vs discoloration from other etiologies. ? No acute interventions required beyond planned lab evaluation and topical management for skin irritation. Assessment & Plan Diagnosis: 1. Hematuria / dark urine, likely catheter associated 2. Catheter site irritation and drainage Plan: - Review previous laboratory data, including liver function tests and blood counts; consider basic laboratory studies if indicated. - Will provide topical lubricant/skin protectant for ricco-catheter irritation if needed. - Reassurance given; advised that current discoloration is not dangerous unless worsening or accompanied by pain. - Continue Humphrey catheter in place; minimize movement to reduce trauma. - Home health nurse to follow up on Monday as scheduled; ensure additional catheter supplies provided. Patient reports receiving alcohol wipes and other supplies for catheter care on Monday. - Follow up with urology per prior instructions; urologist to determine timing of catheter removal. - Return to ED for worsening pain, gross blood, clot retention, fever, or other new concerns. Disposition Related Data Home Medications ?Medication ?Instructions ?Recorded ?Confirmed albuterol sulfate 90 mcg/actuation 2 puff inhalation Q4H PRN wheezing 05/05/23 05/05/23 aerosol inhaler amitriptyline 50 mg tablet 100 mg PO BEDTIME 05/05/23 05/05/23 atenolol 50 mg tablet 50 mg PO BEDTIME 05/05/23 05/05/23 dulaglutide 1.5 mg/0.5 mL 1.5 mg subcut TU@1000 05/05/23 05/05/23 [facility] fluticasone propionate 50 2 spray intranasal DAILY PRN 05/05/23 05/05/23 mcg/actuation nasal SEASONAL ALLERGIES spray,suspension metformin 500 mg tablet,extended 500 mg PO BEDTIME 05/05/23 05/05/23 release 24 hr omeprazole 40 mg capsule,delayed 40 mg PO DAILY@1630 05/05/23 05/05/23 release simvastatin 40 mg tablet 40 mg PO BEDTIME 05/05/23 05/05/23 Previous Rx's ?Medication ?Instructions ?Recorded tamsulosin 0.4 mg capsule 0.4 mg PO BEDTIME 90 days #90 caps 07/07/23 albuterol sulfate 90 mcg/actuation 2 puff inhalation Q4-6H PRN 07/28/24 aerosol inhaler (Ventolin HFA) shortness of breath or wheezing #8.5 grams azithromycin 250 mg tablet See Rx Instructions PO .COMPLEX #6 07/28/24 (Zithromax Z-Jt) tabs fluticasone propionate 220 1 puff inhalation BID #12 grams 07/28/24 mcg/actuation HFA aerosol inhaler prednisone 20 mg tablet 40 mg (2 x 20 mg) PO DAILY 5 days 07/28/24 #10 tabs lanolin 30 % topical cream 1 appl topical TID #113 grams 01/27/25 Allergies Allergy/AdvReac Type Severity Reaction Status Date / Time Sulfa (Sulfonamide Allergy Intermediate HIVES Verified 01/26/25 22:48 Antibiotics) (SULFA (SULFONAMIDE ANTIBIOTICS)) lisinopril (LISINOPRIL) AdvReac Unknown COUGH Verified 01/26/25 22:48 aspirin AdvReac Unknown Verified 01/26/25 22:49 ibuprofen (From Advil) AdvReac Unknown Verified 01/26/25 22:49 ENVIROMENTAL Allergy Unknown UNKNOWN Uncoded 07/27/24 21:09 [facility] Past Medical History Medical History Diverticula of colon Gastroesophageal reflux disease Essential hypertension Non-insulin dependent type 2 diabetes mellitus Mixed hyperlipidemia Peripheral neuropathy Social History Social History Household Members: Spouse Household Members Other:: [id number] Housing: Apartment Do you presently have visiting nurse or other home services: No Alcohol intake: current Alcohol intake frequency: holidays/special occasions only Patient Tobacco Use Status: Never used Tobacco Smoked in Last 30 Days: No Use of substances other than those prescribed or required for medical reasons: No Advance Directives: Yes Advance Directives on File: Yes Advance Directives Date on File: 05/10/23 service: No Physical Exam Vital Signs: Vital Signs: Last Vital Signs Temp 98.6 F 01/27/25 01:03 Pulse 104 H 01/27/25 01:03 Resp 16 01/27/25 01:03 BP 150/77 H 01/27/25 01:03 Pulse Ox 97 01/27/25 01:03 O2 Del Method Room Air 01/27/25 01:03 BMI result Body Mass Index 28.9 Medical Decision Making Medical Decision Making MDM Narrative: MDM: A 70-year-old male with indwelling Humphrey for about a week now was told he needs to follow up in urology clinic after 5 full weeks of Humphrey. He is concerned about this has some discomfort at the urethral meatus and subjective hematuria. Urine in the bag does appear slightly pink tinged but is not gross hematuria. He does not have fever or chills flank pain abdominal pain at this time. He looks well. Reassuring urinalysis tried to reassure the patient. Topical protective cream for the urethra urology follow up Preliminary Favored Differential Diagnosis: Microhematuria, UTI, Humphrey trauma among additional considered etiologies Testing Interpreted Independently: ?See below for details Radiology or Lab testing Results Reviewed: ?See below for details Consults: ?See below for details Independent Historians/External Chart Reviews: ?See below for details Social Determinants of Health Impacting MDM/Planning: ?See below for details Lab Data 01/27/25 00:04 01/27/25 00:04 Labs: Lab Results 01/27/25 Range/Units 00:04 WBC 12.9 H (4.8-10.8) X10*3/uL RBC 5.03 (4.60-5.80) X10*6/uL Hgb 14.6 (14.0-18.0) g/dl Hct 42.3 (42.0-52.0) % MCV 84.1 (80.0-98.0) fL MCH 29.0 (27.0-33.0) pg MCHC 34.5 (31.0-36.0) g/dl RDW 12.3 (11.0-16.0) % Plt Count 240 D (160-400) X10*3/uL MPV 9.1 L (9.4-12.4) fL Immature Gran % (Auto) 0.3 (0.0-0.4) % Neut % (Auto) 73.4 H (45-73) % Lymph % (Auto) 15.6 L (20-40) % [place] % (Auto) 7.1 (2-11) % Eos % (Auto) 3.0 (0-4) % Baso % (Auto) 0.6 (0-2) % Lymph # (Auto) 2.0 (1.2-4.9) X10*3/uL [place] # (Auto) 0.9 (0.1-1.2) X10*3/uL Eos # (Auto) 0.4 (0.0-0.4) X10*3/uL Baso # (Auto) 0.1 (0.0-0.2) X10*3/uL Abs Immat Gran (auto) 0.04 H (0.00-0.03) X10*3/uL Absolute Neuts (auto) 9.5 H (2.0-8.3) x10*3/uL Absolute Nucleated RBC 0.000 (0.0-0.012) X10*3/uL Nucleated RBC % (auto) 0.0 (0.0-0.2) /100WBC Sodium 138 (135-145) mmol/L Potassium 4.5 (3.3-5.1) mmol/L Chloride 105 (96-108) mmol/L Carbon Dioxide 22 (22-29) mmol/L Anion Gap 16 (12-20) BUN 23 H (9-16) mg/dL Creatinine 1.24 (0.5-1.4) mg/dL Estim Creat Clear Calc 56.5 Estimated GFR 57 Random Glucose 241 H (60-115) mg/dL Calcium 8.6 D (8.4-10.2) mg/dL Total Bilirubin 0.2 (0.0-1.0) mg/dL AST 33 (5-37) U/L ALT 45 H (0-40) U/L Alkaline Phosphatase 58 (39-117) U/L Total Protein 7.2 (6.5-8.0) g/dL Albumin 4.3 (3.5-5.0) g/dL Urine Color Red A Urine Appearance Turbid Urine pH 5.0 (5.0-9.0) Ur Specific [place] 1.025 (1.005-1.025) Urine Protein 100 (2+) H (Neg-Trace) mg/dL Urine Glucose (UA) >=1000 H (Negative) mg/dL Urine Ketones Negative (Negative) mg/dL Urine Blood Large (3+) H (Negative) Urine Nitrite Negative (Negative) Ur Leukocyte Esterase Small (1+) H (Negative) Urine RBC >20 H (0-2) /HPF Urine WBC 21-50 H (0-5) /HPF Ur Squamous Epith Cells 0-2 (0-2) /HPF Urine Bacteria None Seen (None Seen) Hyaline Casts 0-2 (0-2) /LPF Discharge Plan Discharge Clinical Impression: Urethritis Patient Disposition: Home, Self-Care Instructions: Humphrey Catheter Care Additional Instructions: In the emergency department you were found to have mild hematuria not gross red blood from your bladder. Your lab work was reassuring. This can happen on occasion sometimes due to subtle trauma to your bladder wall from the Humphrey catheter. Do not be alarmed. Continue to drink plenty of fluids to dilute your urine and call urology if you have any additional concerns. We have provided you with a prescription for some cream to lubricate near the urethra for irritation Prescriptions: New lanolin 30 % cream 1 appl topical TID Qty: 113 0RF Rx Instructions: Apply to urethral meatus at the site of Humphrey insertion to get him protect No Action metformin 500 mg Tablet Extended Release 24 Hr 500 mg PO BEDTIME simvastatin 40 mg Tablet 40 mg PO BEDTIME amitriptyline 50 mg Tablet 100 mg PO BEDTIME atenolol 50 mg Tablet 50 mg PO BEDTIME omeprazole 40 mg Capsule,Delayed Release(Dr/Ec) 40 mg PO DAILY@1630 albuterol sulfate 90 mcg/actuation HFA aerosol inhaler 2 puff inhalation Q4H PRN (Reason: wheezing) fluticasone propionate 50 mcg/actuation spray,suspension 2 spray intranasal DAILY PRN (Reason: SEASONAL ALLERGIES) Trulicity 1.5 mg/0.5 mL Pen Injector 1.5 mg SUBCUT TU@1000 prednisone 20 mg tablet 40 mg PO DAILY 5 Days Qty: 10 0RF albuterol sulfate [Ventolin HFA] 90 mcg/actuation HFA aerosol inhaler 2 puff inhalation Q4-6H PRN (Reason: shortness of breath or wheezing) Qty: 8.5 3RF fluticasone propionate 220 mcg/actuation HFA aerosol inhaler 1 puff inhalation BID Qty: 12 3RF azithromycin [Zithromax Z-Jt] 250 mg tablet See Rx Instructions .ROUTE .COMPLEX Qty: 6 0RF Rx Instructions: take 500 mg today (day 1), then 250 mg for 4 days (days 2-5) tamsulosin 0.4 mg capsule 0.4 mg PO BEDTIME 90 Days Qty: 90 1RF Interventions: ED Discharge Assessment Last Done: 01/27/25 01:03 Discharge Date/Time: 01/27/25 01:04 Print Language: Czech
--- OUTSIDE RECORDS SUMMARY | 2025-01-26 23:15 | XMS_ITS | Patient Health Record ---
Author Organization [facility] Address [address] [place] [address] Care Team Providers Care Manager Music Name Role Phone Aiden Angulo Primary Care Provider ABDIRIZAK Ascencio Unavailable [phone] Allergies Allergen (clinical drug ingredient) Drug/Non Drug [...] Duration) Notes Start Date End Date Status Cyclobenzaprine HCl 10 MG 1 tablet at bedtime as needed Orally 3 times a day prn Not-Taking Amitriptyline HCl 50 MG take 1 tablet in the morning and 2 tablets at night Orally Once a day; Duration: 90 days Active Flomax 0.4 MG 1 capsule Orally Once a day PRN Active Simvastatin 40 MG 1 tablet in the evening Orally Once a day Not-Taking Lidocaine-Prilocaine 2.5-2.5 % apply to the bottom of both feet Externally twice daily as needed; Duration: 30 days Active metFORMIN HCl ER 500 MG 1 tablet with evening meal Orally Once a day Active Nabumetone 500 MG TAKE 1 TABLET BY MOUTH TWICE A DAY FOR 30 DAYS; Duration: 30 Not-Taking Cyclobenzaprine HCl 5 MG 1 tablet at bedtime as needed Orally Once a day; Duration: 90 days 01/22/2025 Active Atenolol 50 MG 1 tablet Orally Once a day Active Gabapentin 300 MG 1 capsule Orally Once a day at night; Duration: 30 day(s) 03/10/2022 Not-Taking Omeprazole 20 MG 1 capsule 30 minutes before morning meal Orally Once a day Active Gabapentin 300 MG 1 capsule Orally twice a day, once in the AM and once at night; Duration: 30 day(s) 03/22/2022 Not-Taking Trulicity once a week Active Pregabalin 75 MG 1 capsule Orally once a day for week 1 then increase to twice daily; Duration: 30 days 06/13/2022 Not-Taking Diclofenac Sodium 75 MG TAKE 1 TABLET BY MOUTH TWICE A DAY NEEDED FOR 30 DAYS; Duration: 30 Not-Taking Amitriptyline HCl 50 MG TAKE 1 TABLET BY MOUTH IN THE MORNING AND 2 TABLETS AT NIGHT FOR 90 DAYS; Duration: 90 Active Dulaglutide 1.5 MG/0.5ML as directed Subcutaneous inject 1.5 mg into the skin every 7 days Not-Taking Baclofen 10 MG 1 tablet as needed Orally Twice a day; Duration: 30 days Not-Taking Diclofenac Sodium 1 % apply 1 gm to the toes on each foot Externally three times a day; Duration: 90 days 07/13/2020 Not-Taking Baclofen 10 MG TAKE 1 TABLET BY MOUTH TWICE A DAY NEEDED FOR 30 DAYS; Duration: 90 Not-Taking Gemfibrozil 600 MG 1 tablet 30 minutes before morning and evening meals Orally Twice a day Not-Taking Problems Problem Type SNOMED Code ICD Code Onset Dates Problem Status W/U Status Risk Notes Problem Polyneuropathy due to type 2 diabetes mellitus (589478829) Type 2 diabetes mellitus with diabetic polyneuropathy (E11.42) Active confirmed Problem Long-term current use of insulin (741656930) longterm (current) use of insulin (Z79.4) Active confirmed Problem Arthritis of joint of toe (559052478) Arthritis of joint of toe (M19.079) Active confirmed Vital Signs Heart Rate 128 /min 01/22/2025 Temperature 97.5 degrees Fahrenheit 01/22/2025 Respiratory Rate 16 /min 01/22/2025 Height 5ft 7in in 01/22/2025 Weight 186.3 lbs 01/22/2025 BMI 29.18 kg/m2 01/22/2025 Encounters Encounter Location Date Provider Diagnosis [facility] [address] [place] [address] 04/03/2024 ABDIRIZAK VELASQUEZ Type 2 diabetes mellitus with diabetic polyneuropathy E11.42 ; Arthritis of joint of toe M19.079 ; 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 ; Pain in left toe(s) M79.675 ; Pain in right toe(s) M79.674 and Bilateral leg cramps R25.2 [facility] [address] 08/02/2024 ABDIRIZAK VELASQUEZ Type 2 diabetes mellitus with diabetic polyneuropathy E11.42 ; Arthritis of joint of toe M19.079 ; longterm (current) use of insulin Z79.4 ; Pain in left toe(s) M79.675 ; Pain in right toe(s) M79.674 and Bilateral leg cramps R25.2 [facility] [address] 01/22/2025 ABDIRIZAK VELASQUEZ Type 2 diabetes mellitus with diabetic polyneuropathy E11.42 ; Arthritis of joint of toe M19.079 ; 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 01/22/2025 Type 2 diabetes mellitus with diabetic [...] side effects of taking an NSAID. 04/03/2024 Arthritis of joint of toe (ICD-10 [...] side effects of taking an NSAID. 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 08/02/2024 Bilateral leg cramps (ICD-10 - R25.2) [...] apply to the feet BID PRN pain. 04/03/2024 Bilateral leg cramps (ICD-10 - R25.2) [...] 04/20/2023 Next Appt Details Provider Name:ABDIRIZAK VELASQUEZ, 04/25/2025 03:30:00 PM, [address] [facility] [address] [facility] [facility] [address], [place], [address], Insurance Providers Payer Name Payer Address Payer Phone Subscriber Number Group Number Insured Name Patient Relationship to Insured Coverage Start Date Coverage End Date [employer] Medicare [id number] [address] [address] [place] [address] [id number] Eligio Smalls Self - patient is the [...] J30.2 Overweight E66.3 COVID vaccinated X 3 ([employer]) Surgical History Surgery Date(Month/Year) colonoscopy Hospitalization History Reason Date(Month/Year) urosepsis 05/2023 diverticulitis
[2025-01-27 00:09] LABS: MANUAL DIFF FLAG NO
[2025-01-27 00:10] LABS: Hematocrit 42.3 % (42.0-52.0); Hemoglobin 14.6 g/dl (14.0-18.0); Imm Gran Abs Auto 0.04 X10*3/uL (0.00-0.03); Imm Gran Pct Auto 0.3 % (0.0-0.4); Lymphocytes Absolute Auto 2.0 X10*3/uL (1.2-4.9); Mean Corpuscular HGB Conc 34.5 g/dl (31.0-36.0); Mean Corpuscular Hemoglobin 29.0 pg (27.0-33.0); Mean Corpuscular Volume 84.1 fL (80.0-98.0); NRBC Abs Auto 0.000 X10*3/uL (0.0-0.012); NRBC Pct Auto 0.0 /100WBC (0.0-0.2); Platelet Count 240 X10*3/uL (160-400); Red Blood Count 5.03 X10*6/uL (4.60-5.80); White Blood Count 12.9 X10*3/uL (4.8-10.8)
[2025-01-27 00:19] LABS: Appearance Urine Turbid; Glucose Urine UA >=1000 mg/dL (Negative); PH 5.0 (5.0-9.0); Specific Gravity - Urine 1.025 (1.005-1.025); UMIC TRIGGER UACC YES
[2025-01-27 00:20] LABS: UACC Culture Trigger YES
[2025-01-27 00:23] LABS: Alanine Aminotransferase 45 U/L (0-40); Albumin Level 4.3 g/dL (3.5-5.0); Alkaline Phosphatase 58 U/L (39-117); Anion Gap 16 (12-20); Aspartate Amino Transferase 33 U/L (5-37); Blood Urea Nitrogen 23 mg/dL (9-16); Calcium 8.6 mg/dL (8.4-10.2); Carbon Dioxide 22 mmol/L (22-29); Chloride 105 mmol/L (96-108); Creatinine Clr Calc Pharmacy 56.5; Estimated Glomerular Filt Rate 57; Potassium 4.5 mmol/L (3.3-5.1); Sodium 138 mmol/L (135-145); Total Protein 7.2 g/dL (6.5-8.0)
[2025-01-27 01:03] VITALS: BP 150/77; PULSE 104; RESP 16; TEMP 37; O2SAT 97
== END 2025-01-27 01:04 | disposition home or self-care (01) ==
PROVIDERS: Emergency Provider Emergency Medicine; PCP Internal Medicine
DX: N34.2 Other urethritis (principal); Z96.0 Presence of urogenital implants; Z88.2 Allergy status to sulfonamides
CPT/HCPCS: 36415; 80053; 81001; 85025; 87086; 87147; 99283; 99284

== ENCOUNTER → 2025-02-17 09:21 | Outpatient (BNVA) | payer MEDICARE, SELFPAY | PROVIDERS: PCP Internal Medicine; Visit Provider Urology | DX: R33.9 Retention of urine, unspecified (principal) | CPT/HCPCS: 51700; 51798 ==

== ENCOUNTER 2025-02-20 03:07 | Emergency (ER) | payer MEDICARE, SELFPAY ==
--- OUTSIDE RECORDS SUMMARY | 2023-09-18 10:30 | XMS_ITS ---
Author Organization [facility] Address [address] [address] Care Team Providers Care Scoop Machine Operator Name Role Phone Aiden Angulo Primary Care Provider ABDIRIZAK Ascencio Unavailable [phone] REASON FOR VISIT 4 month follow up Encounters Encounter Location Date Provider Diagnosis [facility] [address] [address] 09/18/2023 ABDIRIZAK BENNETT Plan Of Treatment Next Appt Details Provider Name:ABDIRIZAK BENNETT, 04/25/2025 03:30:00 PM, [address] [facility] [address], [place], [address], Progress Notes * Eligio SMALLS MDOB:[birth year] (70 yo M)Acc No.[id number]:09/18/2023 Progress Note Patient: Eligio WALKER Provider: Rosalind Bennett DPM :1955 A ge:68 Y S ex:Male Date:09/18/2023 Address:[address] [id number] Pcp:Aiden Angulo Subjective: * Chief Complaints: * 1 . 4 month follow up. * Medical History: Objective: * Vitals: Assessment: Plan: * Treatment: * Billing Information: * Visit Code: * Procedure Codes: * Electronic signature of CLOVER BENNETT D.P.M on 02/20/2025 at 04:39 AM EST Sign off status: Pending * Provider: Rosalind Bennett DPM Date: 0 09/18/2023 Generated for Kyra samano/Eliseo/Trevor on: 1 04/23/2024 04:39 AM EST
--- OUTSIDE RECORDS SUMMARY | 2024-01-19 09:30 | XMS_ITS ---
Author Organization [facility] Address [address] [address] Care Team Providers Care Scoop Machine Operator Name Role Phone Aiden Anguol Primary Care Provider ABDIRIZAK Ascencio Unavailable [phone] REASON FOR VISIT 4 month follow up Encounters Encounter Location Date Provider Diagnosis [facility] [address] [address] 01/19/2024 ABDIRIZAK BENNETT Plan Of Treatment Next Appt Details Provider Name:ABDIRIZAK BENNETT, 04/25/2025 03:30:00 PM, [address] [facility] [address], [place], [address], Progress Notes * Eligio SMALLS MDOB:[birth year] (70 yo M)Acc No.[id number]:01/19/2024 Progress Note Patient: Eligio WALKER Provider: Rosalind Bennett DPM :1955 A ge:69 Y S ex:Male Date:01/19/2024 Address:[address] [id number] Pcp:Aiden Angulo Subjective: * Chief Complaints: * 1 . 4 month follow up. * Medical History: Objective: * Vitals: Assessment: Plan: * Treatment: * Billing Information: * Visit Code: * Procedure Codes: * Electronic signature of CLOVER BENNETT D.P.M on 02/20/2025 at 04:39 AM EST Sign off status: Pending * Provider: Rosalind Bennett DPM Date: 03/20/2023 Generated for Kyra samano/Eliseo/Kimitting on: 04/23/2024 04:39 AM EST
--- OUTSIDE RECORDS SUMMARY | 2024-11-25 09:15 | XMS_ITS ---
Author Organization [facility] Address [address] [address] Care Team Providers Care Radio Presenter Name Role Phone Aiden Angulo Primary Care Provider UnavailABDIRIZAK Cooley Unavailable [phone] REASON FOR VISIT 3 month f/u Encounters Encounter Location Date Provider Diagnosis [facility] [address] [facility] [address] [place] [address] 11/25/2024 ABDIRIZAK BENNETT Plan Of Treatment Next Appt Details Provider Name:ABDIRIZAK BENNETT, 04/25/2025 03:30:00 PM, [address] [facility] [address], [place], [address], Progress Notes * Eligio SMALLS MDOB:[birth year] (70 yo M)Acc No.[id number]:11/25/2024 Progress Note Patient: Eligio WALKER Provider: Rosalind Bennett DPM :1955 A ge:69 Y S ex:Male Date:11/25/2024 Address:[address] [id number] Pcp:Aiden Angulo Subjective: * Chief Complaints: * 1 . 3 month f/u. * Medical History: Objective: * Vitals: Assessment: Plan: * Treatment: * Billing Information: * Visit Code: * Procedure Codes: * Electronic signature of CLOVER BENNETT D.P.M on 02/20/2025 at 04:39 AM EST Sign off status: Pending * Provider: Rosalind Bennett DPM Date: 0 11/25/2024 Generated for Kyra samano/Eliseo/Trevor on: 1 04/23/2024 04:39 AM EST
--- OUTSIDE RECORDS SUMMARY | 2025-01-17 09:30 | XMS_ITS ---
Author Organization [facility] Address [address] [address] Care Team Providers Care Supervisor [employer] Name Role Phone Aiden Angulo Primary Care Provider UnavailABDIRIZAK Cooley Unavailable [phone] REASON FOR VISIT 3 month f/u Encounters Encounter Location Date Provider Diagnosis [facility] [address] [facility] [address] [place] [address] 01/17/2025 ABDIRIZAK BENNETT Plan Of Treatment Next Appt Details Provider Name:ABDIRIZAK BENNETT, 04/25/2025 03:30:00 PM, [address] [facility] [address], [place], [address], Progress Notes * Eligio SMALLS MDOB:[birth year] (70 yo M)Acc No.[id number]:01/17/2025 Progress Note Patient: Eligio WALKER Provider: Rosalind Bennett DPM :1955 A ge:70 Y S ex:Male Date:01/17/2025 Address:[address] [id number] Pcp:Aiden Angulo Subjective: * Chief Complaints: * 1 . 3 month f/u. * Medical History: Objective: * Vitals: Assessment: Plan: * Treatment: * Billing Information: * Visit Code: * Procedure Codes: * Electronic signature of CLOVER BENNETT D.P.M on 02/20/2025 at 04:39 AM EST Sign off status: Pending * Provider: Rosalind Bennett DPM Date: 03/19/2024 Generated for Kyra samano/Eliseo/Trevor on: 04/23/2024 04:39 AM EST
--- NOTE | ~2025-02-20 | CT_ITS ---
CLINICAL HISTORY: Pain; Retention; Tenderness CT abdomen and pelvis with contrast Comparison: CT - CT ABDOMEN PELVIS W IV CON - 02/20/25 04:07 EST Findings: The lung bases are clear. Gallbladder, liver, spleen, bilateral adrenal glands, and pancreas are unremarkable. No urolithiasis or hydronephrosis. Kidneys enhance symmetrically. No abdominal or pelvic free fluid. No retroperitoneal lymphadenopathy. Aorta is nonaneurysmal. No bowel obstruction, pneumoperitoneum, or pneumatosis. Appendix is normal. Colonic diverticulosis is present in the descending and sigmoid colon without findings of diverticulitis. Prostate is markedly enlarged. Kumari catheter is in place within minimally distended bladder with marked wall thickening and adjacent fat stranding. No acute or suspicious osseous lesions. IMPRESSION: Bladder wall thickening and adjacent inflammatory changes which is nonspecific though can be seen in clinical setting of cystitis. Diverticulosis without findings of diverticulitis. This document has been electronically signed by: Jabier Kyle MD on 02/20/2025 05:23:42
[2025-02-20 03:11] VITALS: BP 153/91; BP 158/93; PULSE 100; PULSE 109; RESP 20; TEMP 36.4; O2SAT 98; BMI 29.4
[2025-02-20 03:23] VITALS: BP 153/91; PULSE 109; RESP 20; TEMP 36.4; O2SAT 98
--- NOTE | 2025-02-20 03:23 | ED.ABDPAIN ---
HPI - Abdominal Pain General Chief Complaint: Abdominal Pain Stated Complaint: URINE RETENTION Time Seen by Provider: 02/20/25 03:11 Source: patient and EMS Mode of arrival: EMS Limitations: no limitations History of Present Illness ED Provider: Onel QURESHI HPI narrative: The patient is a 70 year old male who presents to the Emergency Department via ambulance with acute urinary retention. A humphrey catheter placed last week for retention was removed on Monday (two days ago); the patient reports being able to void normally for 1 day, had poor flow yesterdays, but is now unable to produce urine. Describes suprapubic pressure/pain. The patient had experienced a similar episode two years ago without a definitive causative diagnosis. Patient reports at that time urology removed the catheter, checked a PSA which was normal, and discharged the patient. Patient denies recurrence of symptoms until last week. The patient also reports he has a history of hemorrhoids. Patient reports he developed a small amount of rectal bleeding tonight. The patient attributes the bleeding to the hemorrhoids. Denies dizziness, fatigue or other symptoms of anemia. Related Data Home Medications ?Medication ?Instructions ?Recorded ?Confirmed albuterol sulfate 90 mcg/actuation 2 puff inhalation Q4H PRN wheezing 05/05/23 05/05/23 aerosol inhaler amitriptyline 50 mg tablet 100 mg PO BEDTIME 05/05/23 05/05/23 atenolol 50 mg tablet 50 mg PO BEDTIME 05/05/23 05/05/23 dulaglutide 1.5 mg/0.5 mL 1.5 mg subcut TU@1000 05/05/23 05/05/23 subcutaneous pen injector (Trulicity) fluticasone propionate 50 2 spray intranasal DAILY PRN 05/05/23 05/05/23 mcg/actuation nasal SEASONAL ALLERGIES spray,suspension metformin 500 mg tablet,extended 500 mg PO BEDTIME 05/05/23 05/05/23 release 24 hr omeprazole 40 mg capsule,delayed 40 mg PO DAILY@1630 05/05/23 05/05/23 release simvastatin 40 mg tablet 40 mg PO BEDTIME 05/05/23 05/05/23 Previous Rx's ?Medication ?Instructions ?Recorded tamsulosin 0.4 mg capsule 0.4 mg PO BEDTIME 90 days #90 caps 07/07/23 albuterol sulfate 90 mcg/actuation 2 puff inhalation Q4-6H PRN 07/28/24 aerosol inhaler (Ventolin HFA) shortness of breath or wheezing #8.5 grams azithromycin 250 mg tablet See Rx Instructions PO .COMPLEX #6 07/28/24 (Zithromax Z-Jt) tabs fluticasone propionate 220 1 puff inhalation BID #12 grams 07/28/24 mcg/actuation HFA aerosol inhaler prednisone 20 mg tablet 40 mg (2 x 20 mg) PO DAILY 5 days 07/28/24 #10 tabs lanolin 30 % topical cream 1 appl topical TID #113 grams 01/27/25 cephalexin 500 mg capsule 500 mg PO QID #28 caps 02/20/25 Allergies Allergy/AdvReac Type Severity Reaction Status Date / Time Sulfa (Sulfonamide Allergy Intermediate HIVES Verified 02/20/25 03:16 Antibiotics) (SULFA (SULFONAMIDE ANTIBIOTICS)) lisinopril (LISINOPRIL) AdvReac Unknown COUGH Verified 02/20/25 03:16 aspirin AdvReac Unknown Verified 02/20/25 03:16 ibuprofen (From Advil) AdvReac Unknown Verified 02/20/25 03:16 ENVIROMENTAL Allergy Unknown UNKNOWN Uncoded 02/20/25 03:16 Review of Systems Review of Systems Yes all other systems are reviewed and are negative PMFSH Past Medical History Medical History Diverticula of colon Gastroesophageal reflux disease Essential hypertension Non-insulin dependent type 2 diabetes mellitus Mixed hyperlipidemia Peripheral neuropathy Social History Social History Household Members: Spouse Household Members Other:: [id number] Housing: Apartment Do you presently have visiting nurse or other home services: No Alcohol intake: never Patient Tobacco Use Status: Never used Tobacco Smoked in Last 30 Days: No Use of substances other than those prescribed or required for medical reasons: No Advance Directives: Yes Advance Directives on File: Yes Advance Directives Date on File: 05/10/23 Do you have a plan to hurt others: No Plan service: No Physical Exam ED Vital Signs: Vital Signs - 24 hr 02/20/25 03:11 02/20/25 03:23 Temperature 97.6 F 97.6 F Pulse Rate 109 H 109 H Respiratory Rate 20 20 Blood Pressure 153/91 H 153/91 H Pulse Oximetry 98 98 Oxygen Delivery Method Room Air Room Air BMI result Body Mass Index 29.4 CONSTITUTIONAL: The patient appears uncomfortable, but otherwise non-toxic, well nourished and in no acute distress. Vital signs as documented. HEAD: Atraumatic, normocephalic. EYES: EOMs grossly intact, pupils equal, conjunctiva clear, no exudate. ENT: Nares patent, no discharge. Airway patent, no audible stridor, visible mucosa is pink and moist without noted lesions. NECK: Trachea is midline, no obvious masses or gross abnormalities. CHEST: Symmetric movement, normal appearance. LUNGS: LS present and CTAB, no w/r/r. Non-labored work of breathing. CARDIAC: Regular Rhythm, S1/S2 appreciated, no murmurs, rubs or gallops. ABDOMEN: Abdomen soft x4 quadrants, positive tenderness to palpation of the suprapubic region, mild distention, no palpable masses or organomegaly. : Deferred. EXTREMITIES: Normal tone, moves all extremities spontaneously without reported pain. No obvious acute injury or deformity noted. NEURO: Alert and oriented x3, CN II-XII appear grossly intact. Cerebellar Functioning grossly intact. No obvious sensory or motor deficits. Speech clear and appropriate. PSYCH: normal affect, appropriate eye contact, fluid speech, with appropriate response to questioning. No reported suicidality or homicidality. SKIN: Warm, dry, color appropriate, normal turgor. No rashes noted. Medical Decision Making Medical Decision Making MDM Narrative: 3:24 AM 02/20/2025 (Juan QURESHI): The patient is a 70 year old male who presents to the Emergency Department via ambulance with acute urinary retention. A humphrey catheter placed last week for retention was removed on Monday (two days ago); the patient reports being able to void normally for 1 day, had poor flow yesterdays, but is now unable to produce urine. Describes suprapubic pressure/pain. The patient had experienced a similar episode two years ago without a definitive causative diagnosis. Patient reports at that time urology removed the catheter, checked a PSA which was normal, and discharged the patient. Patient denies recurrence of symptoms until last week. The patient also reports he has a history of hemorrhoids. Patient reports he developed a small amount of rectal bleeding tonight. The patient attributes the bleeding to the hemorrhoids. Denies dizziness, fatigue or other symptoms of anemia. Patient will be treated with Humphrey catheterization, and we will obtain basic laboratory evaluation and urinalysis to rule out renal dysfunction or UTI. Due to the recurrence of symptoms the patient will also be sent for a CT abdomen and pelvis to evaluate for structural abnormalities contributing to his symptoms. 4:07 AM 02/20/2025 (Juan QURESHI): The patient's bladder scan revealed 600 cc of urine, Humphrey catheter was placed with immediate evacuation of 575 cc and marked improvement in the patient's discomfort. The patient's laboratory evaluation shows no leukocytosis or anemia, chemistries are pending. Patient's urinalysis has resulted and shows large leukocyte esterase, with greater than 50 WBCs, with trace bacteria and no squamous epithelial cells. Given the patient's recent catheterization/instrumentation with recurrent retention, we will treat for suspected UTI. Patient's CT is still pending, we will treat with the g of IV Rocephin, if CT is unremarkable patient will be discharged with cephalexin. 4:09 AM 02/20/2025 (Juan QURESHI): Patient's chemistries have resulted, no electrolyte abnormality, there is mild BONILLA with BUN 22 and creatinine 1.49, BUN creatinine ratio is 32. The patient is also reporting dry mouth, we will provide gentle IV fluid hydration. 5:27 AM 02/20/2025 (Juan QURESHI): The patient is CT has resulted and shows findings consistent with cystitis, confirm a suspected UTI on urinalysis. There is no complicating stone or evidence of hydroureter or pyelonephritis. The patient will be discharged with Humphrey catheter in place, leg bag, and cephalexin as described above. Admission/Observation Consideration of admission/observation: Escalation of care including admission/observation considered Lab Data MDM Lab Attestation statement: I reviewed the patient's lab results. 02/20/25 03:32 02/20/25 03:32 Labs: Lab Results 02/20/25 02/20/25 Range/Units 03:32 03:51 WBC 9.7 (4.8-10.8) X10*3/uL RBC 4.97 (4.60-5.80) X10*6/uL Hgb 14.1 (14.0-18.0) g/dl Hct 41.5 L (42.0-52.0) % MCV 83.5 (80.0-98.0) fL MCH 28.4 (27.0-33.0) pg MCHC 34.0 (31.0-36.0) g/dl RDW 12.3 (11.0-16.0) % Plt Count 193 (160-400) X10*3/uL MPV 9.1 L (9.4-12.4) fL Immature Gran % (Auto) 0.5 H (0.0-0.4) % Neut % (Auto) 47.1 (45-73) % Lymph % (Auto) 28.1 (20-40) % [place] % (Auto) 8.3 (2-11) % Eos % (Auto) 15.3 H (0-4) % Baso % (Auto) 0.7 (0-2) % Lymph # (Auto) 2.7 (1.2-4.9) X10*3/uL [place] # (Auto) 0.8 (0.1-1.2) X10*3/uL Eos # (Auto) 1.5 H (0.0-0.4) X10*3/uL Baso # (Auto) 0.1 (0.0-0.2) X10*3/uL Abs Immat Gran (auto) 0.05 H (0.00-0.03) X10*3/uL Absolute Neuts (auto) 4.6 (2.0-8.3) x10*3/uL Absolute Nucleated RBC 0.000 (0.0-0.012) X10*3/uL Nucleated RBC % (auto) 0.0 (0.0-0.2) /100WBC Sodium 138 (135-145) mmol/L Potassium 4.3 (3.3-5.1) mmol/L Chloride 105 (96-108) mmol/L Carbon Dioxide 23 (22-29) mmol/L Anion Gap 14 (12-20) BUN 22 H (9-16) mg/dL Creatinine 1.49 H (0.5-1.4) mg/dL Estim Creat Clear Calc 47.4 Estimated GFR 46 Random Glucose 207 H (60-115) mg/dL Calcium 8.7 (8.4-10.2) mg/dL Total Bilirubin 0.4 (0.0-1.0) mg/dL AST 27 (5-37) U/L ALT 26 (0-40) U/L Alkaline Phosphatase 60 (39-117) U/L Total Protein 7.0 (6.5-8.0) g/dL Albumin 4.4 (3.5-5.0) g/dL Urine Color Yellow Urine Appearance Cloudy Urine pH 5.5 (5.0-9.0) Ur Specific [place] 1.010 (1.005-1.025) Urine Protein Negative (Neg-Trace) mg/dL Urine Glucose (UA) 250 H (Negative) mg/dL Urine Ketones Negative (Negative) mg/dL Urine Blood Small (1+) H (Negative) Urine Nitrite Negative (Negative) Ur Leukocyte Esterase Large (3+) H (Negative) Urine RBC 6-10 H (0-2) /HPF Urine WBC >50 H (0-5) /HPF Ur Squamous Epith Cells 0-2 (0-2) /HPF Urine Bacteria Trace (None Seen) Hyaline Casts 0-2 (0-2) /LPF Radiology Impression Discussion of test interpretation with radiology: I have reviewed the radiologist's reading. Radiologist Impression: CT abdomen and pelvis with contrast Comparison: CT - CT ABDOMEN PELVIS W IV CON - 02/20/25 04:07 EST Findings: The lung bases are clear. Gallbladder, liver, spleen, bilateral adrenal glands, and pancreas are unremarkable. No urolithiasis or hydronephrosis. Kidneys enhance symmetrically. No abdominal or pelvic free fluid. No retroperitoneal lymphadenopathy. Aorta is nonaneurysmal. No bowel obstruction, pneumoperitoneum, or pneumatosis. Appendix is normal. Colonic diverticulosis is present in the descending and sigmoid colon without findings of diverticulitis. Prostate is markedly enlarged. Humphrey catheter is in place within minimally distended bladder with marked wall thickening and adjacent fat stranding. No acute or suspicious osseous lesions. IMPRESSION: Bladder wall thickening and adjacent inflammatory changes which is nonspecific though can be seen in clinical setting of cystitis. Diverticulosis without findings of diverticulitis. This document has been electronically signed by: Jabier Kyle MD on 02/20/2025 05:23:42 External Record Review External record reviewed: Outpatient record, Prior outpatient labs and Prior outpatient radiology Medications Administered Discontinued Medications Generic Name Dose Route Start Last Admin Trade Name Ray PRN Reason Stop Dose Admin Ceftriaxone Sodium 1 gm/ 50 mls @ 100 mls/hr 02/20/25 04:07 02/20/25 04:51 Sodium Chloride IV 02/20/25 04:36 Infused ONCE ONE Infusion Sodium Chloride 1,000 mls @ 999 mls/hr 02/20/25 04:15 02/20/25 05:24 Ns IV 02/20/25 05:15 Infused .Q1H1M LEO Infusion Iohexol 85 ml 02/20/25 04:25 02/20/25 04:25 Iohexol 350 Mg/Ml 100 Ml Infus..Btl IV 02/20/25 04:26 85 ml ONCE ONE Administration Lidocaine HCl 10 ml 02/20/25 03:18 02/20/25 03:39 Lidocaine Hcl 2 % Urojet 10 Ml Jel.Pf.Brayan TOPICAL 02/20/25 03:19 10 ml ONCE ONE Administration Discharge Plan Discharge Clinical Impression: Acute urinary retention Urinary tract infection Qualifiers: Urinary tract infection type: acute cystitis Hematuria presence: without hematuria Qualified Code(s): N30.00 - Acute cystitis without hematuria Patient Disposition: Home, Self-Care Instructions: Urinary Retention in Men (ED), Urinary Tract Infection in Men (ED) Additional Instructions: Thank you for choosing [facility]'s Emergency Department for your care today. At this time there is no indication for admission to the hospital or continued ED observation, and it is safe to discharge you home. Thankfully your urinary retention was relieved by the placement of a new Humphrey catheter. Your urinary retention may have been caused by a urinary tract infection. Your urinalysis and your CAT scan and both showed evidence of a urinary tract infection. We are treating your infection with cephalexin. Please take this as prescribed until it is finished. It is extremely important that you follow up with Urology for re-evaluation, consideration of other causes of urinary retention, removal of the Humphrey catheter as indicated, and additional management of your symptoms. You should take alternating (staggered) doses of ibuprofen 600mg and Tylenol 1000mg every 4 hours as needed for any additional pain. Please stay well hydrated and get plenty of rest. Please also follow up with your primary care physician for re-evaluation, additional management of your symptoms, and continued preventative care. If you do not have a primary care physician, please call the [facility] at [phone] to establish a new primary care physician. While waiting to establish your new primary care physician, you can call our Walk[facility]in [facility] at [phone] for non-emergency needs. Please return to the emergency department if you develop a severe or sudden change in your symptoms, a fever over 100.4 that does not improve with Tylenol or Ibuprofen, recurrent vomiting, or any other new or worsening symptoms or concerns. Prescriptions: New cephalexin 500 mg capsule 500 mg PO QID Qty: 28 0RF No Action metformin 500 mg Tablet Extended Release 24 Hr 500 mg PO BEDTIME simvastatin 40 mg Tablet 40 mg PO BEDTIME amitriptyline 50 mg Tablet 100 mg PO BEDTIME atenolol 50 mg Tablet 50 mg PO BEDTIME omeprazole 40 mg Capsule,Delayed Release(Dr/Ec) 40 mg PO DAILY@1630 albuterol sulfate 90 mcg/actuation HFA aerosol inhaler 2 puff inhalation Q4H PRN (Reason: wheezing) fluticasone propionate 50 mcg/actuation spray,suspension 2 spray intranasal DAILY PRN (Reason: SEASONAL ALLERGIES) Trulicity 1.5 mg/0.5 mL Pen Injector 1.5 mg SUBCUT TU@1000 lanolin 30 % cream 1 appl topical TID Qty: 113 0RF Rx Instructions: Apply to urethral meatus at the site of Humphrey insertion to get him protect prednisone 20 mg tablet 40 mg PO DAILY 5 Days Qty: 10 0RF albuterol sulfate [Ventolin HFA] 90 mcg/actuation HFA aerosol inhaler 2 puff inhalation Q4-6H PRN (Reason: shortness of breath or wheezing) Qty: 8.5 3RF fluticasone propionate 220 mcg/actuation HFA aerosol inhaler 1 puff inhalation BID Qty: 12 3RF azithromycin [Zithromax Z-Jt] 250 mg tablet See Rx Instructions .ROUTE .COMPLEX Qty: 6 0RF Rx Instructions: take 500 mg today (day 1), then 250 mg for 4 days (days 2-5) tamsulosin 0.4 mg capsule 0.4 mg PO BEDTIME 90 Days Qty: 90 1RF Referrals: Aiden Angulo III, MD [Primary Care Provider, Medical] Clinical Impression: Urinary tract infection; Acute urinary retention Luis Bell MD [Physician, Urology] Clinical Impression: Urinary tract infection; Acute urinary retention Print Language: Greek
[2025-02-20] MEDS: Lidocaine HCl 2 % Urojet 10 ML JEL.PF.APP TOPICAL (03:39)
[2025-02-20 03:53] LABS: Hematocrit 41.5 % (42.0-52.0); Hemoglobin 14.1 g/dl (14.0-18.0); Imm Gran Abs Auto 0.05 X10*3/uL (0.00-0.03); Imm Gran Pct Auto 0.5 % (0.0-0.4); Lymphocytes Absolute Auto 2.7 X10*3/uL (1.2-4.9); MANUAL DIFF FLAG NO; Mean Corpuscular HGB Conc 34.0 g/dl (31.0-36.0); Mean Corpuscular Hemoglobin 28.4 pg (27.0-33.0); Mean Corpuscular Volume 83.5 fL (80.0-98.0); NRBC Abs Auto 0.000 X10*3/uL (0.0-0.012); NRBC Pct Auto 0.0 /100WBC (0.0-0.2); Platelet Count 193 X10*3/uL (160-400); Red Blood Count 4.97 X10*6/uL (4.60-5.80); White Blood Count 9.7 X10*3/uL (4.8-10.8)
[2025-02-20 03:56] LABS: Appearance Urine Cloudy; Glucose Urine UA 250 mg/dL (Negative); PH 5.5 (5.0-9.0); Specific Gravity - Urine 1.010 (1.005-1.025); UMIC TRIGGER UACC YES
[2025-02-20 03:59] LABS: UACC Culture Trigger YES
[2025-02-20 04:08] LABS: Alanine Aminotransferase 26 U/L (0-40); Albumin Level 4.4 g/dL (3.5-5.0); Alkaline Phosphatase 60 U/L (39-117); Anion Gap 14 (12-20); Aspartate Amino Transferase 27 U/L (5-37); Blood Urea Nitrogen 22 mg/dL (9-16); Calcium 8.7 mg/dL (8.4-10.2); Carbon Dioxide 23 mmol/L (22-29); Chloride 105 mmol/L (96-108); Creatinine Clr Calc Pharmacy 47.4; Estimated Glomerular Filt Rate 46; Potassium 4.3 mmol/L (3.3-5.1); Sodium 138 mmol/L (135-145); Total Protein 7.0 g/dL (6.5-8.0)
[2025-02-20] MEDS: iohexoL 350 MG/ML 100 ML INFUS..BTL 85 ML IV (04:25)
--- OUTSIDE RECORDS SUMMARY | 2025-02-20 04:40 | XMS_ITS | Patient Health Record ---
Author Organization [facility] Address [address] [facility] [address] [facility] [address] [place] [address] Care Team Providers Care Plumber Apprentice Name Role Phone Aiden Angulo Primary Care Provider ABDIRIZAK Ascencio Unavailable [phone] Allergies Allergen (clinical drug ingredient) Drug/Non Drug [...] Polyneuropathy due to type 2 diabetes mellitus (464298902) Type 2 diabetes mellitus with diabetic polyneuropathy (E11.42) Active confirmed Problem Long-term current use of insulin (068608186) MCC (current) use of insulin (Z79.4) Active confirmed Problem Arthritis of joint of toe (416885161) Arthritis of joint of toe (M19.079) Active confirmed Vital Signs Heart Rate 128 /min 01/22/2025 Temperature 97.5 degrees Fahrenheit 01/22/2025 Respiratory Rate 16 /min 01/22/2025 Height 5ft 7in in 01/22/2025 Weight 186.3 lbs 01/22/2025 BMI 29.18 kg/m2 01/22/2025 Encounters Encounter Location Date Provider Diagnosis [facility] [address] [facility] [address] [facility] [address] [place] [address] 04/03/2024 ABDIRIZAK VELASQUEZ Type 2 diabetes mellitus with diabetic polyneuropathy E11.42 ; Arthritis of joint of toe M19.079 ; 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 ; Pain in left toe(s) M79.675 ; Pain in right toe(s) M79.674 and Bilateral leg cramps R25.2 [facility] [address] 08/02/2024 ABDIRIZAK VELASQUEZ Type 2 diabetes mellitus with diabetic polyneuropathy E11.42 ; Arthritis of joint of toe M19.079 ; MCC (current) use of insulin Z79.4 ; Pain in left toe(s) M79.675 ; Pain in right toe(s) M79.674 and Bilateral leg cramps R25.2 [facility] [address] 01/22/2025 ABDIRIZAK VELASQUEZ Type 2 diabetes mellitus with diabetic polyneuropathy E11.42 ; Arthritis of joint of toe M19.079 ; 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 08/02/2024 Arthritis of joint of toe (ICD-10 [...] side effects of taking an NSAID. 01/22/2025 Arthritis of joint of toe (ICD-10 [...] side effects of taking an NSAID. 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 01/22/2025 Bilateral leg cramps (ICD-10 - R25.2) [...] as needed for cramping. Plan Of Treatment Pending Test Test Name Order Date X ray : Foot, left 3v 04/20/2023 X ray : Foot, right 3v 04/20/2023 Next Appt Details Provider Name:ABDIRIZAK VELASQUEZ, 04/25/2025 03:30:00 PM, [address] [facility] [facility] [address] [place], [address], Insurance Providers Payer Name Payer Address Payer Phone Subscriber Number Group Number Insured Name Patient Relationship to Insured Coverage Start Date Coverage End Date [employer] Medicare [id number] [address] [address] [place] [phone] [id number] Eligio Smalls Self - patient is the [...] J30.2 Overweight E66.3 COVID vaccinated X 3 ([employer]) Surgical History Surgery Date(Month/Year) colonoscopy Hospitalization History Reason Date(Month/Year) urosepsis 05/2023 diverticulitis
--- OUTSIDE RECORDS SUMMARY | 2025-02-20 04:40 | XMS_ITS | Clinical Summary ---
Demographics Address [address] [place] [address] Home Phone Mobile Phone Email Address Email Address Email Address Preferred Language en Marital Status Mosque Affiliation Unknown Race White Ethnic Group Not or Lati no Author Organization [address] Address [address] [place] [address] Phone Support Name Relationship Address Phone Carlyn Smalls Spouse [address] [place] [address], [place] [address] Care Team Providers Care Slope Tender Name Role Phone Aiden Angulo MD Primary Care Provider [phone] Allergies Active Allergy Reactions Criticality Noted Date [...] complication, without long-term current use of insulin ([facility] V24, [facility] V28) Inject 0.5 mL (1.5 mg total) under the skin 1 (one) time per week. 6 mL 3 06/12/19 25 Active albuterol HFA (PROAIR HFA ; PROVENTIL HFA ; VENTOLIN HFA) 90 mcg/actuation inhaler INHALE 2 PUFFS INTO THE LUNGS EVERY 4 HOURS NEEDED FOR COUGH OR WHEEZING. 8.5 each 06/01/19 25 Active glucose blood test stripIndicatio ns:Type 2 diabetes mellitus with diabetic microalbuminur ia, with long-term current use of insulin ([facility] V24, [facility] V28) Used to test blood sugar three times a day 100 each 12 09/11/19 25 026 Active lancing device (lancing device with lancets)Indica tions:Type 2 diabetes mellitus with diabetic microalbuminur ia, with long-term current use of insulin ([facility] V24, [facility] V28) Used to test blood sugar three times a day 1 each 09/11/19 25 026 Active lancets (Microlet Lancet) lancetsIndicat ions:Type 2 diabetes mellitus with diabetic microalbuminur ia, with long-term current use of insulin ([facility] V24, [facility] V28) Used to test blood sugar three [...] SPASMS. 90 tablet 1 01/02/20 25 Active blood-glucose meter (Contour Next One Meter) miscIndication s:Type 2 diabetes mellitus with diabetic microalbuminur ia, with long-term current use of insulin ([facility] V24, [facility] V28) USED TO TEST BLOOD SUGAR 1 each 01/30/20 25 Active fluticasone furoate (Arnuity Ellipta) 100 mcg/actuation blister with device inhaler Take 1 puff by mouth 1 (one) time each day. 3 each 1 02/07/20 25 Active fluticasone furoate (ARNUITY ELLIPTA) 100 mcg/actuation blister with device inhaler Inhale 1 puff by mouth 1 (one) time each day. 3 each 07/02/19 25 025 Discontinued blood-glucose meter (Contour Next Gen Meter) miscIndication s:Type 2 diabetes mellitus with diabetic microalbuminur ia, with long-term current use of insulin ([facility] V24, [facility] V28) Used to test blood sugar 1 each 09/11/19 25 025 Discontinued fluticasone HFA (FLOVENT HFA) 110 mcg/actuation inhaler Inhale 1 puff by mouth 2 (two) times a day. 36 g 02/01/20 25 025 Discontinued fluticasone furoate (Arnuity Ellipta) 100 mcg/actuation blister with device inhaler Take 1 puff by mouth 1 (one) time each day. 3 each 1 02/04/20 25 025 Discontinued Active Problems Problem Noted Date Diagnosed Date Elevated PSA 04/07/2021 Overview (12/05/2023): 04/2021: 4/6. Referred to urology. CKD (chronic kidney disease) stage 3, GFR 30-59 ml/min 11/25/2019 Diabetes mellitus type 2 with neurological manif estations 08/20/2015 Microalbuminuria 05/09/2014 Type II diabetes mellitus with renal manifestati ons 05/09/2014 Onychomycosis 01/05/2014 SHASHANK (obstructive sleep apnea) 05/21/2012 Overview (12/05/2023): NOT TREATED (Nov 2019) PLMD (periodic limb movement disorder) 3 Diverticulitis of colon without hemorrhage 12/15 Overview (12/05/2023): Incidental finding at colonoscopy 12/16/2011. Asthma 07/04/2011 GERD (gastroesophageal reflux disease) 2 HTN (hypertension) 07/04/2011 Hypercholesteremia 07/04/2011 Overweight 07/04/2011 Seasonal allergies 07/04/2011 Immunizations Immunization Administration Dates Next Due Influenza [...] care for your loved ones. For example, children's author or elderly care for an older adult? [...] on file Sexual Orientation Not on file Last Filed Vital Signs Vital Sign Reading [...] Care Team (Late st Contact Info) Description 04/09/2025 2:20 PM EST Office Visit Endocrinology [address] [phone] Jocelin Carlin MD [address] [place] [id number] 05/06/2025 1:00 PM EST Office Visit Adult Medicine [address] [phone] Lacie Noel PA [address] [place] [address] Health Maintenance Due Date Last Done Comments [...] Completed 06/26/2013 Depression Screening Completed 04/22/2024, 04/14/19 24 HIB Vaccines Aged Out No longer eligi [...] disease, without long-term current use of insulin ([facility] V24, [facility] V28) COMPREHENSIVE METABOLIC PANEL Routine 04/23/2024 2:05 PM EST Type 2 diabetes mellitus with stage 3a chronic kidney disease, without long-term current use of insulin ([facility] V24, [facility] V28) Stage 3a chronic kidney disease ([facility] V24, [facility] V28) Primary hypertension Encounter for long-term (current) use of medications HEMOGLOBIN A1C Routine 04/23/2024 2:05 PM EST Type 2 diabetes mellitus with stage 3a chronic kidney disease, without long-term current use of insulin ([facility] V24, [facility] V28) LIPID PANEL WITH REFLEX TO DIRECT LDL Routine 04/23/2024 2:05 PM EST Hypercholesteremia DIABETES FOOT EXAM Routine 05/19/2023 DEPRESSION SCREENING Routine 04/14/2023 COLONOSCOPY Routine 02/13/2023 HEPATITIS C SCREENING Routine 06/26/2013 from Last 3 Months or Most Recently Relevant to Health Maintenance Results * Microalbumin creatinine urine ratio (04/23/2024 2:14 PM EST) Creatinine, Urine 183.0 mg/dL LAB CHEMISTRY METHOD 04/23/2024 5:36 PM EST [facility] Microalb, Ur 27.0 0.0 - 29.0 mg/L LAB CHEMISTRY METHOD 04/23/2024 5:36 PM [facility] Microalb/Creat Ratio 15 <30 mg/g creat LAB CHEMISTRY METHOD 04/23/2024 5:36 PM [facility] Urine Urine specimen obtained by clean catch procedure / Unknown Non-blood Collection / Unknown 04/23/2024 2:14 PM EST 04/23/2024 2:14 PM EST us Aiden Angulo MD LAB URINE ORDERABLES Final Resu lt [facility] [address] [place] [address], [place] [phone] * (ABNORMAL) Lipid panel with reflex to direct LDL (04/23/2024 2:05 PM EST) Cholesterol 154 0 - 200 mg/dL LAB CHEMISTRY METHOD 04/23/2024 5:23 PM [facility] Triglycerides 290(H) 0 - 150 mg/dL LAB CHEMISTRY METHOD 04/23/2024 5:23 PM [facility] HDL 41 >=40 mg/dL LAB CHEMISTRY METHOD 04/23/2024 5:23 PM [facility] LDL Calculated 55 0 - 100 mg/dL LAB CHEMISTRY METHOD 04/23/2024 5:23 PM [facility] VLDL Cholesterol Louis 58 mg/dL LAB CHEMISTRY METHOD 04/23/2024 5:23 PM [facility] Non HDL Chol. (LDL+VLDL) 113 <145 mg/dL LAB CHEMISTRY METHOD 04/23/2024 5:23 PM [facility] Chol/HDL Ratio 3.8 0.0 - 4.4 LAB CHEMISTRY METHOD 04/23/2024 5:23 PM [facility] Blood Venous blood specimen / Unknown Venipuncture / Unknown 04/23/2024 2:05 PM EST 04/23/2024 2:05 PM EST us Aiden Angulo MD LAB BLOOD ORDERABLES Final Resu lt Performing Organization Address City/[facility]/ZIP Co de Phone Number [facility] [address] [place] [address], [place] [phone] * (ABNORMAL) Hemoglobin A1c (04/23/2024 2:05 PM EST) Pathologist [facility] Hemoglobin A1C 7.3(H) <6.5 % LAB CHEMISTRY METHOD 04/23/2024 9:25 PM [facility] Mean Bld Glu Estim. 163 mg/dL LAB CHEMISTRY METHOD 04/23/2024 9:25 PM [facility] Blood Venous blood specimen / Unknown Venipuncture / Unknown 04/23/2024 2:05 PM EST 04/23/2024 2:05 PM EST us Aiden Angulo MD LAB BLOOD ORDERABLES Final Resu lt Performing Organization Address [facility]/ZIP Co de Phone Number [facility] [address] [place] [address], [place] [phone] * (ABNORMAL) Comprehensive metabolic panel (04/23/2024 2:05 PM EST) Pathologist [facility] Sodium 139 133 - 145 mmol/L LAB CHEMISTRY METHOD 04/23/2024 5:23 PM [facility] Potassium 4.6 3.5 - 5.5 mmol/L LAB CHEMISTRY METHOD 04/23/2024 5:23 PM [facility] Chloride 107 96 - 110 mmol/L LAB CHEMISTRY METHOD 04/23/2024 5:23 PM [facility] CO2 26 21 - 32 mmol/L LAB CHEMISTRY METHOD 04/23/2024 5:23 PM [facility] Anion Gap 6 3 - 11 LAB CHEMISTRY METHOD 04/23/2024 5:23 PM EST [facility] Glucose 147(H) 70 - 100 mg/dL LAB CHEMISTRY METHOD 04/23/2024 5:23 PM [facility] BUN 23 5 - 25 mg/dL LAB CHEMISTRY METHOD 04/23/2024 5:23 PM [facility] Creatinine 1.54(H) 0.70 - 1.30 mg/dL LAB CHEMISTRY METHOD 04/23/2024 5:23 PM [facility] eGFR 48(L) >=60 mL/min/1. 73m2 LAB CHEMISTRY METHOD 04/23/2024 5:23 PM [facility] Comment:Calculation based on the Chronic Kidney Disease Epidemiology Collaboration (CKD-EPI) equation refit without adjustment for race. BUN/Creatinine Ratio 14.9 LAB CHEMISTRY METHOD 04/23/2024 5:23 PM [facility] Calcium 9.6 8.5 - 10.5 mg/dL LAB CHEMISTRY METHOD 04/23/2024 5:23 PM [facility] AST (SGOT) 22 10 - 42 unit/L LAB CHEMISTRY METHOD 04/23/2024 5:23 PM [facility] ALT (SGPT) 43 10 - 60 unit/L LAB CHEMISTRY METHOD 04/23/2024 5:23 PM [facility] Alkaline Phosphatase 50 42 - 121 unit/L LAB CHEMISTRY METHOD 04/23/2024 5:23 PM [facility] Total Protein 7.9 6.0 - 8.0 g/dL LAB CHEMISTRY METHOD 04/23/2024 5:23 PM [facility] Albumin 4.6 3.2 - 5.0 g/dL LAB CHEMISTRY METHOD 04/23/2024 5:23 PM [facility] Total Bilirubin 0.5 0.0 - 1.4 mg/dL LAB CHEMISTRY METHOD 04/23/2024 5:23 PM [facility] Blood Venous blood specimen / Unknown Venipuncture / Unknown 04/23/2024 2:05 PM EST 04/23/2024 2:05 PM EST Aiden Angulo MD LAB BLOOD ORDERABLES Final Resu lt [facility]) [facility] [address] [place] [address], [place] [phone] * Diabetes Foot Exam (05/19/2023) Pathologist On license of [facility] Diabetes: Annual Foot Exam abstracted Historical Provider HEALTH MAINTENANCE Final Result * Depression Screening (04/14/2023) Pathologist On license of [facility] Depression Screening abstracted Historical Provider HEALTH MAINTENANCE Final Result * Colonoscopy (02/13/2023) Pathologist On license of [facility] Colonoscopy no interpretation , abstracted Anatomical Region Laterality Modality Other [facility] Provider HEALTH MAINTENANCE Final Result * Hepatitis C Screening (06/26/2013) Pathologist On license of [facility] Hepatitis C Screening abstracted Historical Provider HEALTH MAINTENANCE Final Result from Last 3 Months or Most Recently Relevant to Health Maintenance Insurance [employer] Care Teams Slope Tender Relationship Specialty Start Date End Date Aiden Angulo MD [address] [place] [phone] PCP - General Internal Medicine 06/27/11
--- NOTE | 2025-02-20 05:32 | PC.NURSE ---
changed drainage bag to leg bag per MD request
[2025-02-20 05:52] VITALS: BP 149/85; PULSE 109; RESP 20; TEMP 36.4; O2SAT 98
[2025-02-20 05:53] VITALS: BP 149/85; PULSE 109; RESP 20; TEMP 36.4; O2SAT 98
== END 2025-02-20 06:11 | disposition home or self-care (01) ==
PROVIDERS: Physician Assistant; Emergency Provider Emergency Medicine; PCP Internal Medicine
DX: N30.00 Acute cystitis without hematuria (principal); R33.9 Retention of urine, unspecified
CPT/HCPCS: 36415; 51702; 51798; 74177; 80053; 81001; 85025; 87086; 87088; 87186; 96361; 96365; 99284; 99285; J0696; Q9967

== ENCOUNTER → 2025-02-20 03:23 | Outpatient (BNV) | payer MEDICARE, SELFPAY | PROVIDERS: Emergency Provider Emergency Medicine; PCP Internal Medicine; Visit Provider Radiology Vascular & Interventional Radiology | DX: K80.20 Calculus of gallbladder without cholecystitis without obstruction (principal) | CPT/HCPCS: 74177 ==

== ENCOUNTER → 2025-03-05 09:09 | Outpatient (BNVA) | payer MEDICARE, SELFPAY | PROVIDERS: PCP Internal Medicine; Visit Provider Urology | DX: R33.9 Retention of urine, unspecified (principal); Z09 Encounter for follow-up examination after completed treatment for conditions other than malignant neoplasm | CPT/HCPCS: 51700; 51798 ==